=== PATIENT | female | born 2000 | race Caucasian/White ===

== ENCOUNTER 2022-07-15 08:08 | Emergency (ER) | payer OTHER, SELFPAY ==
[2022-07-15 08:25] VITALS: BP 118/63; PULSE 82; RESP 18; TEMP 37; O2SAT 99; BMI 19.7
--- NOTE | 2022-07-15 08:41 | ED_ITS ---
HPI - General Adult General Time Seen by Provider: 08:41 Date Seen: 07/15/22 Chief complaint: Psychiatric Problem/Disorder Stated complaint: Suicidal Ideation Time Seen by Provider: 07/15/22 08:14 Source: patient Mode of arrival: ambulatory Limitations: no limitations History of Present Illness HPI narrative: Patient is a 21 year white female [employer] student from [place], who reports she has had longstanding depression, worse recently with anxiety and some chronic reflux. The patient started on Paxil 2 weeks ago and felt more suicidal ideation, feelings of ?I might be better off not alive ?. No active suicidal plan, she called the nurse line to trying get an appointment at [facility] and they felt she should be seen today. She denies alcohol, drugs, Tylenol, aspirin ingestion, no illicit drugs. She has been healthy generally. Has no allergies. She is very pleasant cooperative alert oriented, and shows good insight into her situation. Related Data Home Medications Medication Instructions Recorded Confirmed budesonide 180 mcg/actuation inhalation 07/15/22 breath activated powder inhaler (Pulmicort Flexhaler) montelukast 10 mg tablet 10 mg PO DAILY 07/15/22 07/15/22 (Singulair) Allergies Allergy/AdvReac Type Severity Reaction Status Date / Time No Known Drug Allergies Allergy Verified 07/15/22 08:25 Review of Systems Status of ROS: Reports: 6 or more systems reviewed and unremarkable except as noted in History and below [facility] Social History Smoking Status: Never smoker How often do you have a drink containing alcohol: monthly or less How often do you have six or more drinks on one occasion: Never AUDIT-C Alcohol total score: 1 Non-prescribed substance use: denies use Exam Narrative: Exam Narrative: Objective: The patient is alert orient x3, no apparent distress, noncyanotic Mental status appears appropriate, patient is appropriately concerned about her generalized health and mental health Vital signs unremarkable HEENT unremarkable no facial asymmetry neck is supple heart rhythm regular without murmur neurologic nonfocal upper extremities good peripheral perfusion noted normal skin exam warm and dry Const: Vital Signs, click to edit/add: Vital Signs - 24 hr 07/15/22 08:25 Temperature 98.6 F Pulse Rate [Right Pulse Oximeter] 82 Respiratory Rate 18 Blood Pressure [Ri ght Upper Arm] 118/63 Pulse Oximetry 99 Oxygen Delivery Me thod Room Air Course Vital Signs Vital signs: Initial Vital Signs Temperature 98.6 F 07/15/22 08:25 Temperature Source Temporal Artery Scan 07/15/22 08:25 Pulse Rate 82 07/15/22 08:25 Respiratory Rate 18 07/15/22 08:25 Blood Pressure 118/63 07/15/22 08:25 Blood Pressure Mean 81 07/15/22 08:25 Blood Pressure Position Sitting 07/15/22 08:25 Pulse Oximetry 99 07/15/22 08:25 Oxygen Delivery Method 07/15/22 08:25 Vital Signs Temperature 98.6 F 07/15/22 08:25 Pulse Rate 82 07/15/22 08:25 Respiratory Rate 18 07/15/22 08:25 Blood Pressure 118/63 07/15/22 08:25 Pulse Oximetry 99 07/15/22 08:25 Oxygen Delivery Method 07/15/22 08:25 Temperature 98.6 F 07/15/22 08:25 Pulse Rate 82 07/15/22 08:25 Respiratory Rate 18 07/15/22 08:25 Blood Pressure 118/63 07/15/22 08:25 Pulse Oximetry 99 07/15/22 08:25 Oxygen Delivery Method 07/15/22 08:25 Medical Decision Making MDM Narrative Medical decision making narrative: Patient has some suicide ideation on Paxil she reports it has been worse with the Paxil, she has stopped this now. Will get a deck Telehealth assessment for reassurance, will check common laboratories to make sure there is no metabolic or other abnormality. Disposition pending dex assessment Addendum: Tele health mental assessment is occurred, they felt she is stable for discharge, and have follow-up plans for her. She was comfortable this plan. Contract for safety will be sent over. Patient return any time problems or concerns Lab Data Labs: Lab Results 07/15/22 07/15/22 07/15/22 Range/Units 08:42 08:42 08:42 WBC (4.50-11.00) K/uL RBC (4.00-5.20) m/uL Hgb (12.0-16.0) gm/dL Hct (33.0-51.0) % MCV (80-100) fL MCH (26-34) pg MCHC (32-36) gm/dL RDW Coeff of Rikki (11.5-15.5) % Plt Count (140-440) K/uL Neut % (Auto) (42.0-72.0) % Lymph % (Auto) (20-44) % [place] % (Auto) (0.0-11.0) % Eos % (Auto) (0.0-7.0) % Baso % (Auto) (0.0-3.0) % Neut # (Auto) (1.7-7.0) K/uL Lymph # (Auto) (0.90-2.90) K/uL [place] # (Auto) (0.00-0.90) K/UL Eos # (Auto) (0.00-0.50) K/uL Baso # (Auto) (0.00-0.30) K/uL Abs Immat Gran (auto) (0.00-0.30) K/uL Sodium (135-149) mmol/L Potassium (3.6-5.1) mmol/L Chloride (96-114) mmol/L Carbon Dioxide (20-32) mmol/L BUN (5-24) mg/dL Creatinine (0.5-1.5) mg/dL Estimated Creat Clear Estimated GFR ml/min Glucose (60-115) mg/dL Calcium (8.4-10.6) mg/dL HCG, Qual (Negative) Urine Color Yellow (Yellow) Urine Appearance Clear (Clear) Urine pH 6.0 (5.0-8.5) Ur Specific [place] 1.020 (1.000-1.030) Urine Protein Negative (Negative) Urine Glucose (UA) Negative (Negative) Urine Ketones Negative (Negative) Urine Blood Negative (Negative) Urine Nitrite Negative (Negative) Urine Bilirubin Negative (Negative) Urine Urobilinogen 0.2 (0.2-1.0) Ur Leukocyte Esterase Trace A (Negative) Urine RBC 0-2 (0-2) Urine WBC 0-2 (0-5) Ur Squamous Epith Cells Few (None-Few) Urine Bacteria None (None) Salicylates (1.0-10) mg/dL Urine Opiates Screen Negative (Negative) Ur Oxycodone Screen Negative (Negative) Urine Methadone Screen Negative (Negative) Ur Propoxyphene Screen Negative (Negative) Acetaminophen (10.0-30.0) ug/mL Ur Barbiturates Screen Negative (Negative) U Tricyclic Antidepress Negative (Negative) Ur Phencyclidine Scrn Negative (Negative) Ur Amphetamines Screen Negative (Negative) U Methamphetamines Scrn Negative (Negative) U Benzodiazepines Scrn Negative (Negative) Urine Cocaine Screen Negative (Negative) U Marijuana (THC) Screen Negative (Negative) Ur Drug Screen Comment See Note Ethyl Alcohol (0.01-0.03) % SARS-CoV-2 (PCR) Negative SARS-CoV-2 (Negative) 07/15/22 07/15/22 07/15/22 Range/Units 08:50 08:50 08:50 WBC 6.26 (4.50-11.00) K/uL RBC 4.81 (4.00-5.20) m/uL Hgb 14.8 (12.0-16.0) gm/dL Hct 44.6 (33.0-51.0) % MCV 93 (80-100) fL MCH 31 (26-34) pg MCHC 33 (32-36) gm/dL RDW Coeff of Rikki 11.3 L (11.5-15.5) % Plt Count 290 (140-440) K/uL Neut % (Auto) 53.2 (42.0-72.0) % Lymph % (Auto) 36.1 (20-44) % [place] % (Auto) 9.7 (0.0-11.0) % Eos % (Auto) 0.0 (0.0-7.0) % Baso % (Auto) 0.8 (0.0-3.0) % Neut # (Auto) 3.33 (1.7-7.0) K/uL Lymph # (Auto) 2.26 (0.90-2.90) K/uL [place] # (Auto) 0.60 (0.00-0.90) K/UL Eos # (Auto) 0.00 (0.00-0.50) K/uL Baso # (Auto) 0.05 (0.00-0.30) K/uL Abs Immat Gran (auto) 0.01 (0.00-0.30) K/uL Sodium 143 (135-149) mmol/L Potassium 3.7 (3.6-5.1) mmol/L Chloride 105 (96-114) mmol/L Carbon Dioxide 29 (20-32) mmol/L BUN 16 (5-24) mg/dL Creatinine 0.7 (0.5-1.5) mg/dL Estimated Creat Clear 104.69 Estimated GFR 126 ml/min Glucose 66 (60-115) mg/dL Calcium 9.5 (8.4-10.6) mg/dL HCG, Qual Negative (Negative) Urine Color (Yellow) Urine Appearance (Clear) Urine pH (5.0-8.5) Ur Specific [place] (1.000-1.030) Urine Protein (Negative) Urine Glucose (UA) (Negative) Urine Ketones (Negative) Urine Blood (Negative) Urine Nitrite (Negative) Urine Bilirubin (Negative) Urine Urobilinogen (0.2-1.0) Ur Leukocyte Esterase (Negative) Urine RBC (0-2) Urine WBC (0-5) Ur Squamous Epith Cells (None-Few) Urine Bacteria (None) Salicylates < 1.0 L (1.0-10) mg/dL Urine Opiates Screen (Negative) Ur Oxycodone Screen (Negative) Urine Methadone Screen (Negative) Ur Propoxyphene Screen (Negative) Acetaminophen < 10.0 L (10.0-30.0) ug/mL Ur Barbiturates Screen (Negative) U Tricyclic Antidepress (Negative) Ur Phencyclidine Scrn (Negative) Ur Amphetamines Screen (Negative) U Methamphetamines Scrn (Negative) U Benzodiazepines Scrn (Negative) Urine Cocaine Screen (Negative) U Marijuana (THC) Screen (Negative) Ur Drug Screen Comment Ethyl Alcohol < 0.01 L (0.01-0.03) % SARS-CoV-2 (PCR) (Negative) Discharge Plan Discharge Clinical Impression: Depression with suicidal ideation Prescriptions: No Action Pulmicort Flexhaler 180 mcg/actuation aerosol powdr breath activated INHALATION Label Comments: INHALE 2 PUFFS TWICE DAILY. RINSE MOUTH AFTERWARDS. montelukast [Singulair] 10 mg tablet 10 mg PO DAILY
[2022-07-15 08:52] LABS: Appearance Urine Clear (Clear); Bilirubin Urine Negative (Negative); Blood Urine Negative (Negative); Color Urine Yellow (Yellow); Glucose Urine Negative (Negative); Ketones Urine Negative (Negative); Leukocyte Esterase Urine Trace (Negative); Nitrite Urine Negative (Negative); Protein Urine Negative (Negative); Urobilinogen Urine 0.2 (0.2-1.0)
[2022-07-15 09:02] LABS: Amphetamine Screen Urine Negative (Negative); Barbiturate Screen Urine Negative (Negative); Benzodiazepines Screen Urine Negative (Negative); Cannabinoid Screen Urine Negative (Negative); Cocaine Screen Urine Negative (Negative); Methadone Screen Urine Negative (Negative); Methamphetamines Screen Urine Negative (Negative); Opiate Screen Urine Negative (Negative); Oxycodone Screen Urine Negative (Negative); Phencyclidine Screen Urine Negative (Negative); RBC Urine 0-2 (0-2); Squamous Epithelial Cell Urine Few (None-Few); Tricyclic Antidepressant Urine Negative (Negative); WBC Urine 0-2 (0-5)
[2022-07-15 09:12] LABS: Chloride* 105 mmol/L (96-114); Potassium* 3.7 mmol/L (3.6-5.1); Sodium* 143 mmol/L (135-149)
[2022-07-15 09:15] LABS: Blood Urea Nitrogen* 16 mg/dL (5-24); Calcium* 9.5 mg/dL (8.4-10.6); Carbon Dioxide* 29 mmol/L (20-32); Creatinine* 0.7 mg/dL (0.5-1.5); Est. Creatinine Clearance* 104.69; Estimated Glomerular Filt Rate 126 ml/min; Glucose* 66 mg/dL (60-115)
[2022-07-15 09:22] LABS: Acetaminophen* < 10.0 ug/mL (10.0-30.0); Ethanol* < 0.01 % (0.01-0.03); Salicylate* < 1.0 mg/dL (1.0-10)
[2022-07-15 09:29] LABS: HCG Qualitative Serum* Negative (Negative)
[2022-07-15 09:41] LABS: SARS PCR* Negative SARS-CoV-2 (Negative)
[2022-07-15 10:34] LABS: Basophils Absolute Auto 0.05 K/uL (0.00-0.30); Basophils Percent Auto 0.8 % (0.0-3.0); Hematocrit 44.6 % (33.0-51.0); Hemoglobin* 14.8 gm/dL (12.0-16.0); Immature Granulocytes Abs Auto 0.01 K/uL (0.00-0.30); Lymphocytes Absolute Auto 2.26 K/uL (0.90-2.90); Lymphocytes Percent Auto 36.1 % (20-44); Mean Corpuscular HGB Conc 33 gm/dL (32-36); Mean Corpuscular Hemoglobin 31 pg (26-34); Mean Corpuscular Volume 93 fL (80-100); Monocytes Percent Auto 9.7 % (0.0-11.0); Neutrophils Absolute Auto 3.33 K/uL (1.7-7.0); Neutrophils Percent Auto 53.2 % (42.0-72.0); Platelet Count* 290 K/uL (140-440); RDW Coefficient of Variation % 11.3 % (11.5-15.5); Red Blood Count 4.81 m/uL (4.00-5.20); White Blood Count* 6.26 K/uL (4.50-11.00)
[2022-07-15 10:36] LABS: Slide Review Reflex No
== END 2022-07-15 11:19 | disposition home or self-care (01) ==
PROVIDERS: Emergency Provider Family Medicine
DX: R45.851 Suicidal ideations (principal); F32.A Depression, unspecified
CPT/HCPCS: 36415; 80048; 80143; 80179; 80306; 81001; 82077; 84703; 85025; 87086; 87635; 99283; 99284

== ENCOUNTER 2022-10-05 19:37 | Emergency (ER) | payer OTHER, SELFPAY ==
[2022-10-05 19:43] VITALS: BP 116/84; PULSE 73; RESP 18; TEMP 36.7; O2SAT 98; BMI 19.7
[2022-10-05 20:00] VITALS: BP 120/81; PULSE 74; RESP 16; O2SAT 96
--- NOTE | 2022-10-05 20:08 | ED.GENADULT ---
HPI - General Adult General Time Seen by Provider: 20:00 Date Seen: 10/05/22 Chief complaint: Vaginal Bleeding Stated complaint: Heavy period bleeding, lightheaded Time Seen by Provider: 10/05/22 19:53 Source: patient and family Mode of arrival: ambulatory Limitations: no limitations History of Present Illness HPI narrative: 21-year-old female who comes in today with lethargy and vaginal bleeding. She reports that she has had heavy vaginal bleeding for the last two days. She is not having increased pain. This is timing miranda normal menstrual cycle but heavier than usual. She notes that her periods are heavier about every other month. Tonight she says she ?could not stay awake. ? She denies chest pain or breathing difficulty, does have some lightheadedness. She partner report that while eating dinner tonight she would just fall asleep and eyes would roll back. Recently increased dose of duloxetine. Related Data Home Medications Medication Instructions Recorded Confirmed budesonide 180 mcg/actuation inhalation 07/15/22 breath activated powder inhaler (Pulmicort Flexhaler) montelukast 10 mg tablet 10 mg PO DAILY 07/15/22 10/05/22 (Singulair) Lizbet-D 12 Hour DAILY 10/05/22 duloxetine 30 mg capsule,delayed 60 mg PO DAILY 10/05/22 10/05/22 release Allergies Allergy/AdvReac Type Severity Reaction Status Date / Time No Known Drug Allergies Allergy Verified 10/05/22 19:47 Review of Systems Status of ROS: Reports: 10 or more systems reviewed and unremarkable except as noted in History and below PFSH PFSH Social History Smoking Status: Never smoker How often do you have a drink containing alcohol: monthly or less How often do you have six or more drinks on one occasion: Never AUDIT-C Alcohol total score: 1 Non-prescribed substance use: denies use Exam Narrative: Exam Narrative: General: Well-developed and well-nourished, no acute distress Head: Atraumatic and normocephalic Eyes: Pupils are equal reactive, extraocular motions intact, conjunctiva clear ENT: External nose and ears are normal, posterior pharynx without erythema or exudate Neck: No midline cervical tenderness, full spontaneous range of motion the neck, trachea midline, no adenopathy Heart: Regular rate and rhythm no murmurs or thrills Lungs: Clear to auscultation bilaterally without wheezes or crackles Abdomen: Soft, nontender, nondistended with active bowel sounds Musculoskeletal: No tenderness, deformity, or edema Neurologic: Awake, alert, and oriented x3, no gross focal neurologic deficits, cranial nerves intact as tested. Occasional spells will patient will flutter her eyelids and not off her seconds, with a spontaneous with normal response to questions answered while she has her spells Psych: Mood and affect are appropriate Skin: No rashes Const: Vital Signs, click to edit/add: Vital Signs - 24 hr 10/05/22 19:43 Temperature 98.0 F Pulse Rate [Right Pulse Oximeter] 73 Respiratory Rate 18 Blood Pressure [Le ft Upper Arm] 116/84 Pulse Oximetry 98 Oxygen Delivery Me thod Room Air Course Course Hospital Course: Patient seen examined, prior records reviewed. Patient presents with heavy than usual menstrual bleeding today. She is not having abdominal pain or cramping. Labs and pelvic ultrasound are ordered. No of possibility of . Patient also reports spells of falling asleep today. In the emergency department, she will occasionally with her eyes and to her head to the right, no other loss of body posture and patient responds appropriately to questions asked during these spells. Did not appear to be syncopal episodes given duration of 1-2 seconds no loss of posture as well as patient's ability to answer questions that are asked her during these spells. Patient on telemetry, no dysrhythmia or sinus pauses noted during spells and no abdnormal movements or confusion after. Reevaluation(s) Reevaluation #1: Telemetry in the emergency department demonstrated continued sinus rhythm with no dysrhythmia. Labs include normal hemoglobin. Venous blood gas demonstrates mild hypercarbia but normal pH. No definite etiology for this as patient has no history asthma or COPD, she does have some seen all allergies. She may be retaining little bit from hypocapnia related to sedation from medications. Pelvic ultrasound is negative. Patient is stable for discharge. Will decrease duloxetine and follow-up with primary care. Precautions given with regard to not driving, not swimming, not working at heights until symptoms resolve. Time: 21:32 Vital Signs Vital signs: Initial Vital Signs Temperature 98.0 F 10/05/22 19:43 Temperature Source Temporal Artery Scan 10/05/22 19:43 Pulse Rate 73 10/05/22 19:43 Respiratory Rate 18 10/05/22 19:43 Blood Pressure 116/84 10/05/22 19:43 Blood Pressure Mean 94 10/05/22 19:43 Blood Pressure Position Semi-Fowlers 10/05/22 19:43 Pulse Oximetry 98 10/05/22 19:43 Oxygen Delivery Method 10/05/22 19:43 Vital Signs Temperature 98.0 F 10/05/22 19:43 Pulse Rate 73 10/05/22 19:43 Respiratory Rate 18 10/05/22 19:43 Blood Pressure 116/84 10/05/22 19:43 Pulse Oximetry 98 10/05/22 19:43 Oxygen Delivery Method 10/05/22 19:43 Temperature 98.0 F 10/05/22 19:43 Pulse Rate 73 10/05/22 19:43 Respiratory Rate 18 10/05/22 19:43 Blood Pressure 116/84 10/05/22 19:43 Pulse Oximetry 98 10/05/22 19:43 Oxygen Delivery Method 10/05/22 19:43 Medical Decision Making Medical Records Medical records reviewed: Yes I reviewed the patient's medical records Lab Data Lab results reviewed: Yes I reviewed the patient's lab results Labs: Lab Results 10/05/22 10/05/22 10/05/22 Range/Units 20:14 20:14 20:14 WBC 8.66 (4.50-11.00) K/uL RBC 4.55 (4.00-5.20) m/uL Hgb 14.2 (12.0-16.0) gm/dL Hct 42.0 (33.0-51.0) % MCV 92 (80-100) fL MCH 31 (26-34) pg MCHC 34 (32-36) gm/dL RDW Coeff of Rikki 11.6 (11.5-15.5) % Plt Count 294 (140-440) K/uL Neut % (Auto) 59.8 (42.0-72.0) % Lymph % (Auto) 32.1 (20-44) % [place] % (Auto) 7.4 (0.0-11.0) % Eos % (Auto) 0.0 (0.0-7.0) % Baso % (Auto) 0.6 (0.0-3.0) % Neut # (Auto) 5.18 (1.7-7.0) K/uL Lymph # (Auto) 2.78 (0.90-2.90) K/uL [place] # (Auto) 0.60 (0.00-0.90) K/UL Eos # (Auto) 0.00 (0.00-0.50) K/uL Baso # (Auto) 0.05 (0.00-0.30) K/uL Abs Immat Gran (auto) 0.01 (0.00-0.30) K/uL Imm/Tot Granulo (auto) 0.1 % VBG pH (7.32-7.43) VBG pCO2 (40-50) mmHG VBG pO2 (25-47) mmHG VBG HCO3 (21-28) mmol/L Sodium 141 (135-149) mmol/L Potassium 3.8 (3.6-5.1) mmol/L Chloride 104 (96-114) mmol/L Carbon Dioxide 25 (20-32) mmol/L BUN 16 (5-24) mg/dL Creatinine 0.6 (0.5-1.5) mg/dL Estimated Creat Clear 122.14 Estimated GFR 131 ml/min Glucose 81 (60-115) mg/dL Calcium 9.4 (8.4-10.6) mg/dL Urine Color (Yellow) Urine Appearance (Clear) Urine pH (5.0-8.5) Ur Specific [place] (1.000-1.030) Urine Protein (Negative) Urine Glucose (UA) (Negative) Urine Ketones (Negative) Urine Blood (Negative) Urine Nitrite (Negative) Urine Bilirubin (Negative) Urine Urobilinogen (0.2-1.0) Ur Leukocyte Esterase (Negative) Urine Opiates Screen (Negative) Ur Oxycodone Screen (Negative) Urine Methadone Screen (Negative) Ur Propoxyphene Screen (Negative) Ur Barbiturates Screen (Negative) U Tricyclic Antidepress (Negative) Ur Phencyclidine Scrn (Negative) Ur Amphetamines Screen (Negative) U Methamphetamines Scrn (Negative) U Benzodiazepines Scrn (Negative) Urine Cocaine Screen (Negative) U Marijuana (THC) Screen (Negative) Ur Drug Screen Comment SARS-CoV-2 (PCR) Negative SARS-CoV-2 (Negative) Influenza Type A (PCR) Negative PCR FLU A (Negative) Influenza Type B (PCR) Negative PCR FLU B (Negative) 10/05/22 10/05/22 10/05/22 Range/Units 20:14 21:00 21:00 WBC (4.50-11.00) K/uL RBC (4.00-5.20) m/uL Hgb (12.0-16.0) gm/dL Hct (33.0-51.0) % MCV (80-100) fL MCH (26-34) pg MCHC (32-36) gm/dL RDW Coeff of Rikki (11.5-15.5) % Plt Count (140-440) K/uL Neut % (Auto) (42.0-72.0) % Lymph % (Auto) (20-44) % [place] % (Auto) (0.0-11.0) % Eos % (Auto) (0.0-7.0) % Baso % (Auto) (0.0-3.0) % Neut # (Auto) (1.7-7.0) K/uL Lymph # (Auto) (0.90-2.90) K/uL [place] # (Auto) (0.00-0.90) K/UL Eos # (Auto) (0.00-0.50) K/uL Baso # (Auto) (0.00-0.30) K/uL Abs Immat Gran (auto) (0.00-0.30) K/uL Imm/Tot Granulo (auto) % VBG pH 7.335 (7.32-7.43) VBG pCO2 52 H (40-50) mmHG VBG pO2 37.9 (25-47) mmHG VBG HCO3 28 (21-28) mmol/L Sodium (135-149) mmol/L Potassium (3.6-5.1) mmol/L Chloride (96-114) mmol/L Carbon Dioxide (20-32) mmol/L BUN (5-24) mg/dL Creatinine (0.5-1.5) mg/dL Estimated Creat Clear Estimated GFR ml/min Glucose (60-115) mg/dL Calcium (8.4-10.6) mg/dL Urine Color Yellow (Yellow) Urine Appearance Clear (Clear) Urine pH 7.0 (5.0-8.5) Ur Specific [place] 1.015 (1.000-1.030) Urine Protein Negative (Negative) Urine Glucose (UA) Negative (Negative) Urine Ketones Negative (Negative) Urine Blood 2+ A (Negative) Urine Nitrite Negative (Negative) Urine Bilirubin Negative (Negative) Urine Urobilinogen 0.2 (0.2-1.0) Ur Leukocyte Esterase Negative (Negative) Urine Opiates Screen Negative (Negative) Ur Oxycodone Screen Negative (Negative) Urine Methadone Screen Negative (Negative) Ur Propoxyphene Screen Negative (Negative) Ur Barbiturates Screen Negative (Negative) U Tricyclic Antidepress Negative (Negative) Ur Phencyclidine Scrn Negative (Negative) Ur Amphetamines Screen Negative (Negative) U Methamphetamines Scrn Negative (Negative) U Benzodiazepines Scrn Negative (Negative) Urine Cocaine Screen Negative (Negative) U Marijuana (THC) Screen Negative (Negative) Ur Drug Screen Comment See Note SARS-CoV-2 (PCR) (Negative) Influenza Type A (PCR) (Negative) Influenza Type B (PCR) (Negative) ECG Data Attestation: I personally reviewed and interpreted this ECG as follows: Prior ECG tracings: not available for review Interpretation: Performed at 8:35 p.m. demonstrates normal sinus rhythm with sinus arrhythmia rate 77, no acute ST elevations or depressions, normal intervals, normal axis, QTC 407, PA 154. No prior for comparison Discharge Plan Discharge Clinical Impression: Heavy menstrual bleeding, Excessive sleepiness Patient Disposition: Home, Self-Care Condition: Stable Instructions: Menorrhagia (ED) Additional Instructions: Decrease duloxetine to prior 30mg dose. Do not drive, swim, bike, or go on ladders until your spells of sleepiness resolve. Prescriptions: No Action Pulmicort Flexhaler 180 mcg/actuation aerosol powdr breath activated INHALATION Label Comments: INHALE 2 PUFFS TWICE DAILY. RINSE MOUTH AFTERWARDS. montelukast [Singulair] 10 mg tablet 10 mg PO DAILY duloxetine 30 mg capsule,delayed release(DR/EC) 60 mg PO DAILY Label Comments: TAKE 1 CAPSULE BY MOUTH EVERY MORNING Lizbet-D 12 Hour DAILY Follow Up/Referrals: Provider,Not a Local [Primary Care Provider] - Stand Alone Forms: [employer] Info Instructions
--- NOTE | 2022-10-05 20:14 | CRLHL7_ITS ---
For Patients: As a result of the Century Cures Act, medical imaging exams and procedure reports are released immediately into your electronic medical record. You may view this report before your referring provider. If you have questions, please contact your health care provider. INDICATION: HEAVY VAGINAL BLEEDING, DECLINES TV IMAGING Indication: Heavy vaginal bleeding. Technique: Pelvic ultrasound. Transabdominal imaging of the pelvis was obtained. Patient declined endovaginal imaging. Comparison: None. Findings: Uterus measures 8.1 x 3.3 x 4.3 cm. Endometrial complex measures 4 millimeters in thickness. No endometrial or myometrial mass. Right ovary measures 3.4 x 1.5 x 2.9 cm. Left ovary measures 3.7 x 1.8 x 2.7 cm. No adnexal mass. No significant free fluid in the rectovaginal pouch of [place]. Impression: Normal transabdominal pelvic ultrasound. Dictated by Ranjeet Lowe MD @ 10/05/2022 9:23:46 PM Dictated by: Ranjeet Lowe MD @ 10/05/2022 21:23:54 (Electronically Signed)
--- OUTSIDE RECORDS SUMMARY | 2022-10-05 20:28 | XMS_ITS | Encounter Summary ---
:2000 Author Organization [facility] Address [address] [place] [address] Care Team Providers Name Role Phone Mian Goode M.D. Primary Care Provider Reason for Visit Reason Comments Medication Question Encounter Details Date Type Department Care Team Description 08/29/2022 Nurse Triage Department of Family Chen Fabian, [facility] Medicine, [facility], [address] in [place] [phone] [place] [place] [address] [address] (Work) [place] [address] Social History Tobacco Use Types Packs/Day Years Used Date Smoking Tobacco: Never Smokeless Tobacco: Never Alcohol Use Standard Drinks/Week Comments Yes 3 (1 standard drink = 0.6 oz pure alcoho l) Alcohol Habits Answer Date Recorded How often do you have a drink containing alcohol? 2-4 times a month 04/19/2022 How many drinks containing alcohol do you have on a 3 or 4 04/19/2022 typical day when you are drinking? How often do you have six or more drinks on one Never 04/19/2022 occasion? Social Isolation Answer Date Recorded In a typical week, how many times do you Once a week 04/19/2022 talk on the phone with family, friends, or neighbors? How often do you get together with friends More than three t imes a week 04/19/2022 or relatives? How often do you attend evangelical or 1 to 4 times per year 04/01 orthodox services? Do you belong to any clubs or Yes 04/19/2022 organizations such as evangelical groups, unions, fraternal or athletic groups, or school groups? How often do you attend meetings of the More than 4 times pe r year 04/19/2022 clubs or organizations you belong to? Are you now , , , Never 04/19/2022 , never or living with a partner? Physical Activity Answer Date Recorded On average, how many days per week do you engage in moderate to 7 days 04/19/2022 strenuous exercise (like walking fast, running, jogging, dancing, swimming, biking, or other activities that cause a light or heavy sweat)? On average, how many minutes do you engage in exercise at is 30 min 04/19/2022 level? Stress Answer Date Recorded Do you feel stress - tense, restless, nervous, or anxious, R ather much 04/19/2022 or unable to sleep at night because your mind is troubled all the time - these days? Financial Resource Strain Answer Date Recorded How hard is it for you to pay for the very basics like Not v corazon hard 04/19/2022 food, housing, medical care, and heating? Intimate Partner Violence Answer Date Recorded Within the last year, have you been afraid of your partner o r No 04/19/2022 ex-partner? Within the last year, have you been humiliated or emotionall y No 04/19/2022 abused in other ways by your partner or ex-partner? Within the last year, have you been kicked, hit, slapped, or No 04/19/2022 otherwise physically hurt by your partner or ex-partner? Within the last year, have you been raped or forced to have any No 04/19/2022 kind of sexual activity by your partner or ex-partner? Food Insecurity Answer Date Recorded Within the past 12 months, you worried that your food would Never true 04/19/2022 run out before you got money to buy more. Within the past 12 months, the food you bought just didn't N ever true 04/19/2022 last and you didn't have money to get more. Transportation Needs Answer Date Recorded In the past 12 months, has lack of transportation kept you f rom No 04/19/2022 medical appointments or from getting medications? In the past 12 months, has lack of transportation kept you f rom No 04/19/2022 meetings, work, or getting things needed for daily living? Housing Stability Answer Date Recorded In the last 12 months, was there a time when you were not ab le No 04/19/2022 to pay the mortgage or rent on time? In the last 12 months, how many places have you lived? 2 04/19/2022 In the last 12 months, was there a time when you did not hav e a No 04/19/[address] or slept in a detention (including now)? Education Answer Date Recorded What is the highest level of school you have Some college, n o degree 03/17/2020 completed or the highest degree you have received? Sex Assigned at Date Recorded Female 02/10/2022 1:42 PM CDT documented as of this encounter Miscellaneous Notes Telephone Encounter - Chen Fabian R.N. - 08/29/2022 10:50 AM CDT Chief Complaint / Reason for Call Patient is a 21 y.o. female calling regarding Medication Question. Assessment Concern: Lexapro approximately 4 weeks ago. Beginning about the 3rd week she developed depressive episodes that come intermittently, and last about 30 minutes. She will feel despondent. Others have told her she is irritable, and very flat affect. She has recently started back to college so does have in creased stress. She is wondering if she should take her dose today. She has reached out to the [facility] prescribing psychologist last night, but has not heard back. I did encourage her to continue taking the medication until she has spoken to her ordering physician. She will call back if symptoms worsen, or thoughts of self harm. Present for: 1 week Calling to request: Advice The recommended disposition is Call PCP When Office is Open. Reason for Disposition [1] Caller has NON-URGENT medicine question about med that PCP prescribed AND [2] triager unable toanswer question Protocols used: Medication Question [id number]-US Care Advice Patient/Caregiver understands and will follow care advice?: Yes, able to teach back ALTERNATE DISPOSITION - GUN PERFORATOR WHEN OFFICE OPEN: * Ask who prescribed the medication. * If it was a specialist (e.g., neurologist, psychiatrist), refer the call to them, not the PCP. CALL BACK IF: * You have more questions or concerns * You become worse documented in this encounter Plan of Treatment Not on filedocumented as of this encounter Visit Diagnoses Not on filedocumented in this encounter Additional Health Concerns Assessment Noted Time PHQ-9 Depression Total Score: 19 07/15/2022 7:17 AM CD T documented as of this encounter Care Teams Rug Layer Relationship Specialty Start Date End Date Mian Goode M.D. PCP - General Family Medicine 10/28/06 [address] [place] [address] documented as of this encounter
--- OUTSIDE RECORDS SUMMARY | 2022-10-05 20:28 | XMS_ITS | Encounter Summary ---
:2000 Author Organization [facility] Address [address] [place] [address] Care Team Providers Name Role Phone Mian Goode M.D. Primary Care Provider Encounter Details Date Type Department Care Team Description 09/17/2022 Orders Only RST PCP [facility] MNT Mian Goode M.D. [address] [place], [place] [phone] (Wo rk) Social History Tobacco Use Types Packs/Day Years [...] or relatives? How often do you attend mormonism or 1 to 4 times per year 04/01 mormon services? Do you belong to any clubs or Yes 04/19/2022 organizations such as mormonism groups, unions, fraternal or athletic groups, or [...] minutes do you engage in exercise at th is 30 min 04/19/2022 level? Stress Answer [...] place to sleep or slept in a retirement (including now)? Education Answer Date Recorded What is the highest level of school you have Some college, n o degree 03/17/2020 completed or the highest degree you have received? Sex Assigned at Date Recorded Female 02/10/2022 1:42 PM CDT documented as of this encounter Plan of Treatment Not on filedocumented as of this encounter Visit Diagnoses Not on filedocumented in this encounter Additional Health Concerns Assessment Noted Time PHQ-9 Depression Total Score: 19 07/15/2022 7:17 AM CD T documented as of this encounter Care Teams Hospital Technician Relationship Specialty Start Date End Date Mian Goode M.D. PCP - General Family Medicine 10/28/06 [address] [place] [address] documented as of this encounter
--- OUTSIDE RECORDS SUMMARY | 2022-10-05 20:28 | XMS_ITS | Encounter Summary ---
:[address] [facility] Address [address] [place] [address] Care Team Providers Name Role Phone Mian Goode M.D. Primary Care Provider Encounter Details Date Type Department Care Team Description 08/02/2022 Orders Only Department of Family Javier telles, Medicine, [facility] Candi Fritz [facility], [phone] [facility] [address] [place] [phone] (Work) [place] [address] [place] [address] [address] [phone] Social History Tobacco Use Types [...] or relatives? How often do you attend mosque or 1 to 4 times per year 04/01 adventism services? Do you belong to any clubs or Yes 04/19/2022 organizations such as mosque groups, unions, fraternal or athletic groups, or [...] place to sleep or slept in a residential (including now)? Education Answer Date Recorded What [...] documented as of this encounter Care Teams Edger Saw Operator Relationship Specialty Start Date End Date Mian Goode M.D. PCP - General Family Medicine 10/28/06 [address] [place] [phone] documented as of this encounter
--- OUTSIDE RECORDS SUMMARY | 2022-10-05 20:28 | XMS_ITS | Encounter Summary ---
:2000 Author Organization [facility] Address [address] [place] [address] Care Team Providers Name Role Phone Mian Goode M.D. Primary Care Provider Reason for Visit Reason Comments Immunizations Encounter Details Date Type Department Care Team Description 09/15/2022 Nurse Triage Department of [facility] Janice Jerez, [facility] Medicine, [facility] [place] [phone] (Work) [facility] [address] [place] [address] Social History Tobacco Use [...] or relatives? How often do you attend latter-day or 1 to 4 times per year 04/01 tenriism services? Do you belong to any clubs or Yes 04/19/2022 organizations such as latter-day groups, unions, fraternal or athletic groups, or [...] this encounter Miscellaneous Notes Telephone Encounter - Janice Jerez R.N. - 09/15/2022 3:05 AM CDT Chief Complaint / Reason for Call Patient is a 21 y.o. female calling regarding Immunizations. Assessment Concern: had COVID booster and influenza vaccination, now swollen lymph nodes, states she feels spastic Present for: Tonight Home cares tried: Tylenol Calling to request: advice The recommended disposition is Home Care. She will do home cares and if symptoms worsen or do not improve will call back Reason for Disposition Influenza (TIV; Injection) injected vaccine reactions Protocols used: Immunization [id number] Care Advice Patient/Caregiver understands and will follow care advice?: Yes, able to teach back REASSURANCE AND EDUCATION - NORMAL REACTIONS: * Vaccines protect us against serious diseases. * Having some temporary symptoms from the shot is normal. * The symptoms mean the vaccine is working. They mean your immune system is building antibodies against the vaccine. The antibodies will protect you against the real disease. * These brief side effects do not cause any risks to your health * There is no need to see your doctor (or CLINICAL PSYCHOLOGIST/PA) for normal reactions, such as pain, swelling, redness or fever. * Here is some care advice that should help. INFLUENZA VIRUS VACCINE (TIV; INJECTED) - COMMON REACTIONS: * Local pain at injection site * Fever * Aches * If these symptoms occur, they usually last 1 to 2 days. PAIN AND FEVER MEDICINES: * For pain or fever relief, take either acetaminophen or ibuprofen. * They are dggs-ymp-jyspeuq (OTC) drugs that help treat both fever and pain. [facility]. * Treat fevers above 101 F (38.3 C). The goal of fever therapy is to bring the fever down to a comfortable level. Remember that fever medicine usually lowers fever 2 degrees F (1 - 1 1/2 degrees C). * ACETAMINOPHEN REGULAR STRENGTH TYLENOL: Take 650 mg (two 325 mg pills) by mouth every 4-6 hours asneeded. Each Regular Strength Tylenol pill has 325 mg of acetaminophen. The most you should take each day is 3,250 mg (10 pills a day). * ACETAMINOPHEN - EXTRA STRENGTH TYLENOL: Take 1,000 mg (two 500 mg pills) every 8 hours as needed. Each Extra Strength Tylenol pill has 500 mg of acetaminophen. The most you should take each day is 3,000 mg (6 pills a day). * IBUPROFEN (E.G., MOTRIN, ADVIL): Take 400 mg (two 200 mg pills) by mouth every 6 hours. The most you should take each day is 1,200 mg (six 200 mg pills), unless your doctor has told you to take more. CALL BACK IF: * Fever lasts over 3 days * Pain lasts over 3 days * Redness or swelling lasts over 3 days * You become worse documented in this encounter Plan of Treatment Not on filedocumented as of this encounter Visit Diagnoses Not on filedocumented in this encounter Additional Health Concerns Assessment Noted Time PHQ-9 Depression Total Score: 19 07/15/2022 7:17 AM CD T documented as of this encounter Care Teams Training And Development Manager Relationship Specialty Start Date End Date Mian Goode M.D. PCP - General Family Medicine 10/28/06 [address] [place] [address] documented as of this encounter
--- OUTSIDE RECORDS SUMMARY | 2022-10-05 20:28 | XMS_ITS | Continuity of Care Document ---
:2000 Author Organization [facility] Address [address] [place] [address] Care Team Providers Name Role Phone Mian Goode M.D. Primary Care Provider Source Comments Patient records contain information from all sites at [facility]. For routine questions regarding patient records, call [phone] during business hours, M-F 8:00 AM - 5:00 PM Central Time. Record requests for emergency care only can be directed to [phone] at any time.[facility] Encounters Date Type Specialty Care Team Description Orders Only Mian Goode, 2 M.D. Nurse Triage Family Medicine Janice Jerez, Immuniz ations 2 R.N. Nurse Triage Family Medicine Chen Fabian, Medicati on Question 2 R.N. Orders Only Family Medicine Javier 2 Lam Omer M.D. Refill Family Medicine Alexis Jenkins, Med Refi ll 2 LOSS CLAIM CLERK, C.N.P., M.S.N. Nurse Triage Family Medicine Pauline Bauman, Depress ion 2 R.N. Clinical Family Medicine Mian Goode, Depressi on 2 Communication MRemy Telemedicine Family Medicine Javier Depression Anxiety 2 Varayil, (Primary Dx) Candi Fritz Refill Family Medicine Nick Brown Refill 2 Levar GeorgeAJennifer Office Visit Family Medicine Radha Moreno Pap Smear Examination (Primary Dx); 2 M, LOSS CLAIM CLERK, C.N.P. Asthma Mild Persistent (HCC) Comprehensive Gastroenterology and Thomas Luna troesophageal 2 Visit Hepatology Candi Narayanan Reflux Disease Orders Only Nicolasa Dukes, 2 M.D. Telemedicine Family Medicine Radha Carty Gastroes ophageal 2 L, Candi Reflux Disease (Primary Dx) Telemedicine Family Medicine Mian Goode, Rachel mcgregor Deficit Disorder Combined Type (Primary Dx); 2 M.D. Asthma Mild Int ermittent (HCC); Allergy Seasona l Orders Only Family Medicine Kevin, 1 Cassidy Stuart PSantiA.Jacoby Refill Family Medicine Alexis Jenkins, Med Refi ll 1 LOSS CLAIM CLERK, C.N.P., M.S.N. Orders Only Mian Goode, 1 M.D. Immunization Family Medicine 1 Patient Symptom Restrike Hammer Operator, 1 Self-Triage Provider External Outreach Family Medicine Post, Delores Alm[address]era ct With And 1 M.D. (Suspected) Exp osure To COVID-19 (Pr imary Dx) Admin Visit Family [facility] 1 Patient Symptom Restrike Hammer Operator, 1 Self-Triage Provider Refill Family Medicine Mian Goode, Med Refi ll 1 M.D. Immunization Family Medicine Encounter Fo r 1 COVID-19 Vaccin e Immunization Immunization Family Medicine Encounter Fo r 1 COVID-19 Vaccin e Immunization (Primary Dx) External Outreach Family Medicine Post, Delores Almaguera ct With And 1 M.D. (Suspected) Exp osure To COVID-19 (Pr imary Dx) Admin Visit Family Medicine 1 Patient Symptom Restrike Hammer Operator, 1 Self-Triage Provider External Outreach Family Medicine Post, Davin Narayanan Infec tion Upper 1 M.D. Respiratory (Pr imary Dx) Admin Visit Family Medicine 1 Patient Symptom Restrike Hammer Operator, 0 Self-Triage Provider Refill Family Medicine Mian Goode, Med Refi ll 0 M.D. Refill Pharmacy Mian Goode, Med Refill [address] [facility] Mian Goode, Asthma M ild Intermittent (HCC) (Primary Dx); 0 M.D. Allergy Seasona l Hospital Encounter Oral and Ross, Dev, 0 Maxillofacial Surgery M.D., D.M.D. Hospital Encounter Oral and RossJeffrey faulknerin, Impacted Tooth Third 0 Maxillofacial Surgery M.D., D.M.D. [facility] Nely Díaz, Medication Problem 0 Communication Pharm.D., R.Ph. Refill Family Medicine Mian Goode, Med Refi ll 0 M.D. Clinical Oral and Prescheduling, COVID Nurse L ine 0 Communication Maxillofacial Surgery Provider Telemedicine [facility] Medicine Mian Goode, Attentio n Deficit Disorder Combined Type (Primary Dx); 0 M.D. Asthma Mild Int ermittent (HCC) Hospital Encounter Laboratory Medicine Tian Freeman, Clinical Research 9 M.D. Exam Hospital Encounter Laboratory Medicine Harman Yan, Clinical Research 9 M.D., M.P.H. Exam Orders Only [facility]yana [facility] al Research 9 and Adolescent Exam (Primary Dx) Medicine Orders Only Count Includes [facility] Pediatric Ttayana link [facility] al Research 9 and Adolescent Exam (Primary Dx) Medicine Comprehensive Family Medicine Mian Goode, Chad Alfaro 9 Visit M.D. Juvenile Detention Officer Multisystem 29 Day To 17 Year Norm al (Primary Dx) Refill Family Medicine Mian Goode, Med Refi ll 8 M.D. Clinical Family Medicine Mian Goode, Form Rev iew 8 Communication M.D. Immunization Family Medicine Hermelinda Acuña Vacc ine 8 M, L.P.N. Immunization Influenza Abstract Provider, 8 Historical Hospital Encounter Mian Goode 7 - M.D. 7 Hospital Encounter Alicia Joseph 7 - L.P.N. 7 Hospital Encounter 7 - 7 Hospital Encounter 6 Hospital Encounter 6 Hospital Encounter 0 - 0 Hospital Encounter 0 Allergies No known active allergies Medications Medication Sig Dispensed Refills Start Date End Date Status ibuprofen Take 2 tablets 0 07/02/2013 Acti ve (ADVIL,MOTRIN) 200 mg by mouth every 6 tablet (six) hours as needed for pain. budesonide (PULMICORT) Inhale 2 puffs 2 1 each 11 01/21/2022 Active 180 mcg/actuation (two) times a inhaler day. Rinse mouth with water after use to reduce aftertaste and incidence of candidiasis. Do not swallow. fexofenadine-pseudoeph Take 1 tablet by 0 Active edrine (ALDEN-D 24) mouth as needed. 180-240 mg per 24 hr tablet fluticasone propionate Administer 1 0 Active (FLONASE) 50 spray into each mcg/actuation nasal nostril as spray needed. hydrOXYzine (VISTARIL) 25 mg daily as 0 04/17/2022 Active 25 mg capsule needed for anxiety. PARoxetine (PAXIL) 10 Take 1 tablet 30 tablet 0 07/02/2022 Active mg tablet (10 mg total) by mouth every morning. methylphenidate HCl Take 1 tablet 168 tablet 0 07/02/2022 Active (RITALIN) 10 mg tablet (10 mg total) by mouth 2 (two) times a day. montelukast TAKE 1 TABLET BY 90 tablet 3 08/02/2022 08/02/2023 Active (SINGULAIR) 10 mg MOUTH AT BEDTIME tablet DURING ALLERGY SEASON albuterol 90 INHALE 2 PUFFS 8.5 g 5 07/12/2021 A ctive mcg/actuation inhaler BY MOUTH EVERY FOUR HOURS NEEDED FOR WHEEZING OR SHORTNESS OF BREATH Active Problems Problem Noted Date Allergy Seasonal 05/22/2020 Asthma Mild Intermittent 08/16/2010 Attention Deficit Disorder Combined Type 01/14/2008 Overview: Diagnosis: ADHD F90.2 Previous interventions: medication Medication prescribed: Methylphenidate 1 0 mg twice daily. Duration of prescription: 12 weeks Amount to be dispensed: 168 tablets per prescription Tapering plan: not needed Frequency of visits: Once yearly for sharri ssessment. The [place] Prescription Monitoring Pr ogram was reviewed. Urine drug screening frequency: random a s needed Immunizations Name Administration Dates Next Due 4vHPV (discontinued) 06/09/2012, 01/03/2012, 11/29/2011 DTaP / Hib 01/20/2002 DTaP, Unspecified 10/16/2005, 04/15/2001, 02/06/2001, 2000 HepA Pediatric/Adolescent 05/17/2019, 04/18/2014 HepB Pediatric/Adolescent 07/02/2001 Hib-HepB 02/06/2001, 2000 IPV 10/16/2005, 07/02/2001, 02/06/2001, 2000 MCV4, Unspecified 01/31/2017, 11/29/2011 MMR 10/19/2003, 10/16/2001 PCV20 04/23/2022 PCV7 (discontinued) 04/15/2001, 02/06/2001, 2000 SARS-COV-2 (COVID-19) - PFIZER (12 10/24/2021, 03/27/2021, 0 03/01/2021 years or older) Tdap 04/23/2022, 12/24/2021 (Deferred: Patient decision), 11/29/2011 DESIREE 09/27/2010, 10/16/2001 influenza vaccine quad 07/27/2019, 08/20/2018, 08/22/2016, (FLUZONE/FLUARIX) (6 months and 08/17/2015, 08/19/2014 older)(PF) Family History Medical History Relation Name Comments Migraines Father's Sister Kacie Le Anxiety disorder Maternal Grandfather Doron Deng Clotting disorder Maternal Grandfather Doron Deng Colon polyps Maternal Grandfather Doron Deng Coronary artery disease Maternal Grandfather Doron Deng Depression Maternal Grandfather Doron Deng Hypertension Maternal Grandfather Doron Deng Hyperlipidemia Maternal Grandmother Rochelle Deng Hypertension Maternal Grandmother Rochelle Deng Migraines Maternal Grandmother Rochelle Deng Asthma Mother Elizabet Le Colon polyps Mother Elizabet Le Migraines Mother Elizabet Le Migraines Mother's Brother Gurwinder Deng Diabetes Paternal Grandfather Grzegorz Leesusy Hyperlipidemia Paternal Grandfather Grzegorz Le Hypertension Paternal Grandfather Grzegorz Leeser Diabetes Paternal Grandmother Tennille Leeser Hyperlipidemia Paternal Grandmother Tennille Chintanser Relation Name Status Comments Father's Sister Kacie Le Maternal Grandfather Doron Deng Maternal Grandmother Rochelle Deng Mother Elizabet Le Mother's Brother Gurwinder Deng Paternal Grandfather Grzegorz Woodsonser Paternal Grandmother Tennille Le Social History Smoking Status as of 10/05/2022 Tobacco Use Types Packs/Day Years Used Date Smoking Tobacco: Never Assessed Alcohol Habits Answer Date Recorded How often [...] or relatives? How often do you attend voodoo or 1 to 4 times per year 04/01 latter day services? Do you belong to any clubs or Yes 04/19/2022 organizations such as voodoo groups, unions, fraternal or athletic groups, or [...] place to sleep or slept in a usp (including now)? Education Answer Date Recorded What is the highest level of school you have Some college, n o degree 03/17/2020 completed or the highest degree you have received? Sex Assigned at Date Recorded Female 02/10/2022 1:42 PM CDT Last Filed Vital Signs Vital Sign Reading Time Taken Comments Blood Pressure 111/70 04/23/2022 9:55 AM CDT Pulse 83 04/23/2022 9:55 AM CDT Temperature 36.9 ??C (98.4 ??F) 05/01/2020 9:25 AM CDT Respiratory Rate 20 05/01/2020 11:05 AM CDT Oxygen Saturation 100% 05/01/2020 11:05 AM CDT Inhaled Oxygen Concentration - - Weight 48.8 kg (107 lb 9.4 oz) 04/23/2022 9:55 AM CDT Height 162 cm (5' 3.78) 04/23/2022 9:55 AM CDT Body Mass Index 18.59 04/23/2022 9:55 AM CDT Plan of Treatment Not on file Procedures Procedure Name Priority Date/Time Associated Diagnosis Comme nts THINPREP SCREEN HPV Routine 04/23/2022 10:25 Pap Smear Resu lts for this REFLEX AM CDT Examination procedure are i n the results section. SARS CORONAVIRUS 2 Routine 07/18/2021 3:55 PM Contact With And Results for this PCR DETECT, V CDT (Suspected) Exposure proced ure are in To COVID-19 the results section. SARS CORONAVIRUS-2, Routine 01/07/2021 9:12 AM Contact With An d Results for this PCR HAND CLIPPER (Suspected) Exposure procedu re are in To COVID-19 the results section. INFLUENZA A/B RNA, Routine 12/01/2020 1:53 PM Infection Upper Results for this PCR, VARIES HAND CLIPPER Respiratory procedure are i n the results section. SARS CORONAVIRUS-2, Routine 12/01/2020 1:53 PM Infection Upper Results for this PCR HAND CLIPPER Respiratory procedure are i n the results section. SARS CORONAVIRUS-2, Routine 04/29/2020 11:10 Encounter For Res ults for this PCR AM CDT Screening For Other procedur e are in Viral Diseases the results (COVID-19) section. SARS-COV-2 IGG AB, Routine 04/29/2020 10:34 Encounter For Resu lts for this SERUM AM CDT Screening For Other procedur e are in Viral Diseases the results (COVID-19) section. [facility] RESEARCH ORDER, Routine 11/17/2019 9:17 AM Clinical Resea [facility] Results for this B HAND CLIPPER Exam procedure are i n the results section. DX ANKLE 3 VIEWS Routine 06/25/2017 8:29 AM Resul ts for this CDT procedure are i n the results section. OUTSIDE PHOTO Routine 01/16/2015 12:00 Results fo r this PM HAND CLIPPER procedure are i n the results section. DX ABDOMEN 1 VIEW Routine 05/28/2007 10:41 Result s for this AM CDT procedure are i n the results section. DX CHEST AP OR PA Routine 03/01/2002 2:42 PM Resu lts for this AND LATERAL 2 VIEWS HAND CLIPPER procedur e are in the results section. DX CHEST AP OR PA Routine 07/22/2001 4:28 PM Resu lts for this AND LATERAL 2 VIEWS CDT procedur e are in the results section. US HEAD Routine 2000 9:04 AM Resul ts for this HAND CLIPPER procedure are i n the results section. US HEAD Routine 2000 12:03 Results for this PM HAND CLIPPER procedure are i n the results section. US HEAD Routine 2000 3:46 PM Resul ts for this HAND CLIPPER procedure are i n the results section. DX CHEST PORTABLE 1 Routine 2000 6:20 AM Re sults for this VIEW HAND CLIPPER procedure are i n the results section. DX CHEST AND Routine 2000 5:59 AM Re sults for this ABDOMEN PORTABLE 1 HAND CLIPPER procedure are in VIEW the results section. DX INFANT CHEST AND Routine 2000 11:02 Resu lts for this ABDOMEN PORTABLE 1 AM HAND CLIPPER procedure are in VIEW the results section. DX INFANT CHEST AND Routine 2000 6:28 AM Re sults for this ABDOMEN PORTABLE 1 HAND CLIPPER procedure are in VIEW the results section. DX INFANT CHEST AND Routine 2000 3:53 PM Re sults for this ABDOMEN PORTABLE 1 HAND CLIPPER procedure are in VIEW the results section. DX INFANT CHEST AND Routine 2000 3:24 PM Re sults for this ABDOMEN PORTABLE 1 HAND CLIPPER procedure are in VIEW the results section. Results ThinPrep Screen HPV Reflex (04/23/2022 10:25 AM CDT) Component Value Ref Test Analysis Performed Pathologis t Range Method Time At Signature 04/30/2022 DTL 3:37 PM CDT Report NYLA Clements(ASCP) 04/30/2022 DT L electronically 3:37 PM signed by CDT I verify that I have examined all relevant slides/materials for the specimen(s) and rendered or confirmed the diagnosis. Gross Description Received specimen 04/30/2022 DTL in a ThinPrep 3:37 PM vial. CDT Pap Test Source Cervical/Endocervi 04/30/2022 DTL mehreen 3:37 PM CDT Clinical History first pap 04/30/2022 DTL 3:37 PM CDT Menstrual 04/17/2022 04/30/2022 DTL Status(LMP, PM, 3:37 PM ) CDT Hormone none 04/30/2022 DTL Therapy/Contracep 3:37 PM tives CDT Interpretation Cervical/Endocervical ??(ThinPrep): 04/30/2022 DTL 3:37 PM Satisfactory for Evaluation CDT Negative for Intraepithelial Lesion or Malignancy Specimen Anatomical Collection Method Collection Time Receive d Time (Source) Location / / Volume Laterality Varies 04/23/2022 10:25 04/23/2022 1:17 (Cervix/Endocerv AM CDT PM CDT ix) Narrative This result has an attachment that is no t available. Radha Moreno APRN CSantiNSantiP. LAB PAP PATHDX ORDERABLE S Performing Organization Address City/State/ZIP Code Phon e Number [facility] - [address] [place] [phone] [facility] [place] [address] Laboratories-[address] SARS Coronavirus 2 PCR Detect, V Symptomatic (07/18/2021 3:55 PM CDT) [facility] Method Time Signature SARS-CoV-2 Swab, 07/19/2021 [facility] Specimen Nasopharynx 11:26 AM Source CDT SARS-CoV-2 Undetected Undetected 07/19/2021 [facility] RNA by PCR 11:26 AM CDT Comment: SARS-CoV-2 RNA absent. This result does not rule out COVID-19 in the patient, as the sensitivity of the test depends o n the timing of the specimen collection and the quality of the specim en. Result should be correlated with patient's history and clinical presentat ion. ----ADDITIONAL INFORMATION---- This RT-PCR test using the yuri SARS-Co V-2 assay ([employer] performed on the yuri 6800/8800 S ystem has received Emergency Use Authorization (EUA) by the U.S. Food and Drug Administration, and is modified from the ammonia technician's instructions wit h a bridging study. Performance characteristics were verified by [facility] inic in a manner consistent with CLIA requirements. Fact sheets for this Emergency Use Autho rization (EUA) assay can be found at the following links: For Healthcare Providers: https://www.TerraLUX a.gov/media/140598/download For Patients: https://www.HyperQuest.gov/media/ 784255/download Specimen Anatomical Collection Method Collection Time Receive d Time (Source) Location / / Volume Laterality Varies 07/18/2021 3:55 PM 7:29 (Nasopharynx) CDT PM CDT Davin Galo M.D. LAB MICROBIOLOGY - GENERAL O RDERABLES Performing Organization Address City/State/ZIP Code Phon e Number [facility] [address] [place], [place] [address] [facility] [place] [address] Laboratory Medicine and Pathology [address] [place] SARS Coronavirus-2, PCR Asymptomatic (01/07/2021 9:12 AM HAND CLIPPER)Only the most recent of3 resultswithin the time period is included. [facility] Method Time Signature SARS Swab, 01/07/2021 DTL Coronavirus-2 Nasopharynx 6:43 PM HAND CLIPPER Source SARS Undetected Undetected 01/07/2021 DTL Coronavirus-2 6:43 PM HAND CLIPPER , PCR Comment: SARS-CoV-2 RNA absent. This result does not rule out COVID-19 in the patient, as the sensitivity of the test depends o n the timing of the specimen collection and quality of the specimen. Result should be correlated with patient's history and clinical presentat ion. ----ADDITIONAL INFORMATION---- This test was developed and its performa nce characteristics determined by [facility] in a manner co nsistent with CLIA requirements. Independent review by the U.S. Food and Drug Administration is pending. Visit the CDC website: https://www.cdc.gov/coronavirus/ ?? for the most recent guidelines on Gage virus testing. Fact Sheet for Healthcare Providers: (https://www.Callvine/it-mmfil es/ Provider_Fact_Sheet_for_[facility]_COVI D-19.pdf) Fact Sheet for Patients: (https://www.Callvine/it-mmfil es/ Patient_Fact_Sheet_for_COVID-19.pdf) Specimen Anatomical Collection Method Collection Time Receive d Time (Source) Location / / Volume Laterality Varies 01/07/2021 9:12 AM 1 1:27 (Nasopharynx) HAND CLIPPER PM HAND CLIPPER Davin Galo M.D. LAB MICROBIOLOGY - GENERAL O AUGUST Performing Organization Address [facility] Phon e Number [facility] - [address] [address] Laboratories-[address] Influenza A/B RNA, PCR, Varies (12/01/2020 1:53 PM HAND CLIPPER) [facility] Method Time Signature Influenza Swab, 12/02/2020 DTL A/B, Source Nasopharynx 4:55 PM HAND CLIPPER Influenza A, Undetected Undetected 12/02/2020 DTL PCR 4:55 PM HAND CLIPPER Comment: Influenza A RNA absent. Influenza B, PCR Undetected Undetected 12/02/2020 4:55 PM CS T DTL Comment: Influenza B RNA absent. ----ADDITIONAL INFORMATION---- This test was developed and its performa nce characteristics determined by [facility] in a manner consistent with CLIA requirements. This test has not been cleared or approved by the U.S. Yelena d and Drug Administration. Specimen Anatomical Collection Method Collection Time Receive d Time (Source) Location / / Volume Laterality Varies 12/01/2020 1:53 PM 1 5:17 (Nasopharynx) HAND CLIPPER PM HAND CLIPPER Davin Galo M.D. LAB MICROBIOLOGY - GENERAL O AUGUST Performing Organization Address City/[facility] Phon e Number [facility] - [address] [place], [place] [address] [place] [address] Laboratories-[facility] [address] OMS Panorex (05/01/2020 9:27 AM CDT) Specimen (Source) Anatomical Location Collection Method / Collectio n Time Received Time / Laterality Volume Narrative This result has an attachment that is no t available. Dev Ross M.D., D.M.D. PROCEDURE/MINOR SURGICAL ORD ERABLES SARS Coronavirus 2 IgG Ab, Serum (04/29/2020 10:34 AM CDT) athologist Signature SARS-CoV-2 IgG Negative Negative 04/30/2020 [facility] Ab 12:05 PM CDT Comment: No IgG antibodies to SARS-CoV-2 detected . ?? Negative results may occur in serum larisa ected too soon following infection, or in immunosuppres sed patients. ?? Follow-up testing with a molecular test is recommended in symptomatic patients. ??This test vinny uld not be used to exclude active/recent COVID-19. ?? Testing was performed using the [employer] Iwco-DNUX-PxY-2 KEENAN (IgG), which has received Emergency Use Authori zation (EUA) by the U.S. Food and Drug Administration . ?? Fact sheets for this EUA assay can be fo und at the following links: ?? Factsheet for healthcare Providers: ?? https://www.fda.gov/media/919719/downloa d Factsheet for healthcare Patients: ?? https://www.fda.gov/media/751943/downloa d Specimen Anatomical Collection Method Collection Time Receive d Time (Source) Location / / Volume Laterality Blood (Blood, 04/29/2020 10:34 04/29/2020 3:27 Venous) AM CDT PM CDT Dev Ross M.D., D.M.D. LAB MICROBIOLOGY - BLOOD ORD ERABLES Performing Organization Address City/State/ZIP Code Phon e Number [facility] [address] [place] [address] [facility] [place] [address] Laboratory Medicine and Pathology [address] [place] Miscellaneous Research, B (11/17/2019 9:17 AM HAND CLIPPER) athologist Signature Number of 1 11/17/2019 [facility] Specimens 9:37 AM HAND CLIPPER Specimen Anatomical Collection Method Collection Time Receive d Time (Source) Location / / Volume Laterality Varies (Blood, 11/17/2019 9:17 AM 019 9:37 Venous) HAND CLIPPER AM HAND CLIPPER Tian Freeman M.D. LAB RESEARCH NO RESULT ROUTI NG Performing Organization Address City/State/ZIP Code Phon e Number [facility] - [address] [place], [place] [address] [facility] [place] [address] Laboratories-[facility] [address] DX Ankle 3 Views (06/25/2017 8:29 AM CDT) Anatomical Region Laterality Modality Ankle N/A Radiographic Imaging Specimen (Source) Anatomical Collection Method Collection Time Re ceived Time Location / / Volume Laterality 06/25/2017 8:29 AM CDT Impressions 06/25/2017 9:17 AM CDT No fracture or malalignment of bilateral ankles. Soft tissues are radiographically normal. Normal ankle mortise alignment. ?? Electronically signed by: ?? Tulio Ha MD [phone] 25-Jun-2017 09:17 ?Eun Buck MD. [id number] 25-Jun-2017 09:17 Narrative 06/25/2017 9:17 AM CDT 25-Jun-2017 08:29:00 ??Exam: B Ankle 3vw/STDG AP/Lat/Mortis Indications: Pain Ankle NOS ORIGINAL REPORT - 25-Jun-2017 09:17:00 EXAM: ??Ankle 3vw/STDG AP/Lat/Mortise AMBER TH Procedure Note Eun Buck M.D. - 02/25/2018Form atting of this note might be different from the original. 25-Jun-2017 08:29:00 Exam: B Ankle 3vw/S TDG AP/Lat/Mortis Indications: Pain Ankle NOS ORIGINAL REPORT - 25-Jun-2017 09:17:00 EXAM: Ankle 3vw/STDG AP/Lat/Mortise BOTH IMPRESSION: No fracture or malalignment of bilateral ankles. Soft tissues are radiographically normal. Normal ankle mortise alignment. Electronically signed by: Tulio Ha MD [phone] 25-Jun-2017 09:17 Eun Buck MD. [id number] 25-Jun-2017 09:17 Mian Goode M.D. IMG DIAGNOSTIC IMAGING PROCE DURES Head Panaromic-Outside Photo (01/16/2015 12:00 PM HAND CLIPPER) Specimen (Source) Anatomical Location Collection Method / Collectio n Time Received Time / Laterality Volume Narrative [facility] - 07/29/2019 9:23 AM CDT This order has been created and auto-finalized to support the import of outside images. If available, original i nterpretation can be found on the Media Tab in Chart Review, in Document V iewer, or as an image in QREADS. If a re-interpretation or overread is re quired please follow defined workflow. ?? Provider Not In System IMG NON RAD IMAGING PROCEDUR ES Performing Organization Address City/State/ZIP Code Phon e Number [facility] NA DX Abdomen 1 View (05/28/2007 10:41 AM CDT) Anatomical Region Laterality Modality Abdomen N/A Radiographic Imaging Specimen (Source) Anatomical Collection Method Collection Time Re ceived Time Location / / Volume Laterality 05/28/2007 10:41 AM CDT Narrative 05/28/2007 10:51 AM CDT 28-May-2007 10:41:00 ??Exam: Abdomen Indications: ABD Pain ORIGINAL REPORT - 28-May-2007 10:51:00 Minimal amounts of stool are seen throug hout the colon. Abdomen is normal. Electronically signed by: ?? Amador Jara ??[phone] 28-May-2007 10:51 Procedure Note Lonny Jara M.D. - 03/03/2018Format ting of this note might be different from the original. 28-May-2007 10:41:00 Exam: Abdomen Indications: ABD Pain ORIGINAL REPORT - 28-May-2007 10:51:00 Minimal amounts of stool are seen throug hout the colon. Abdomen is normal. Electronically signed by: Amador Jara [phone] 28-May-2007 10:51 Mian Goode M.D. IMG DIAGNOSTIC IMAGING PROCE DURES DX Chest AP or PA and Lateral 2 Views (03/01/2002 2:42 PM HAND CLIPPER)Only the most recent of2 resultswithin the time period is included. Anatomical Region Laterality Modality Chest N/A Radiographic Imaging Specimen (Source) Anatomical Collection Method Collection Time Re ceived Time Location / / Volume Laterality 03/01/2002 2:42 PM HAND CLIPPER Narrative 03/01/2002 3:34 PM HAND CLIPPER 01-Mar-2002 14:42:00 ??Exam: Chest-- 2 Views Indications: cough; screen c/w previous ORIGINAL REPORT - 01-Mar-2002 15:34:00 Minimal peribronchial thickening without an acute lobar infiltrate. Heart size and pulmonary vascularity are normal. Electronically signed by: ?? Nelly Richard M.D. ??[id number] 2 15:34 Procedure Note Nelly Richard M.D. - 03/06/2018Formatti ng of this note might be different from the original. 01-Mar-2002 14:42:00 Exam: Chest-- 2 Vie ws Indications: cough; screen c/w previous ORIGINAL REPORT - 01-Mar-2002 15:34:00 Minimal peribronchial thickening without an acute lobar infiltrate. Heart size and pulmonary vascularity are normal. Electronically signed by: Nelly Richard M.D. [id number] 01-Mar-2002 15:34 Erika Qureshi M.D. IMG DIAGNOSTIC IMAGING PROCE [facility] US Head (2000 9:04 AM RUST)Only the most recent of3 resultswithin the time period is included. Anatomical Region Laterality Modality Head N/A Ultrasound Specimen (Source) Anatomical Collection Method Collection Time Re ceived Time Location / / Volume Laterality 2000 9:04 AM HAND CLIPPER Narrative 2000 1:46 PM RUST 2000 09:04:00 ??Exam: US Cranial Pediatrics Indications: *portable* ??follow up^[id number] ORIGINAL REPORT - 2000 13:46:00 Sonogram of the head in coronal and sagi ttal projections. The intracranial contents are normal and without a structural abnormality or intraventricular hemorrhage. Normal CSF volume within the ventricul ar system with minimal increase in extra -axial fluid. Ind: 510.705 ?? Dia.120 ?? Electronically signed by: ?? Nelly Richard M.D. ??[id number] 0 13:46 Procedure Note Nelly Richard M.D. - 03/09/2018Formatti ng of this note might be different from the original. 2000 09:04:00 Exam: US Cranial Pe diatrics Indications: *portable* follow up^[id number] ORIGINAL REPORT - 2000 13:46:00 Sonogram of the head in coronal and sagi ttal projections. The intracranial contents are normal and without a structural abnormality or intraventricular hemorrhage. Normal CSF volume within the ventricular system with minimal increase in extra-ax ial fluid. Ind: 510.705 Dia.120 Electronically signed by: Nelly Richard M.D. [id number] 2000 13:46 Ranjeet Sutherland M.D. IMG US PROCEDURES DX Chest Portable 1 View (2000 6:20 AM HAND CLIPPER) Anatomical Region Laterality Modality Chest N/A Radiographic Imaging Specimen (Source) Anatomical Collection Method Collection Time Re ceived Time Location / / Volume Laterality 2000 6:20 AM HAND CLIPPER Narrative 2000 10:36 AM HAND CLIPPER 2000 06:20:00 ??Exam: Portable-Chest Indications: AM PORT F/U INFILTRATES ORIGINAL REPORT - 2000 06:43:00 Since yesterday, a second enteric tube h as been placed with tip in the proximal stomach below the GE junction. ??Previously demonstrated slightly coarsened opacities in the right lower lung have improve d. ??Otherwise no change. ??Enteric tube tip in the midstomach. ??UVC tip projected over T10, just above the right hemidiaphragm. ??Stable minimal granular changes throughout both lungs. ??Normal heart size. ??No pleural effusions. ??Normal b owel gas pattern. Electronically signed by: ?? Dolores [id number] ([id number]) 0 06:43 I have reviewed the films/images and agr ee with the above interpretation. Electronically signed by: ?? Nelly Richard M.D. ??[id number] 0 10:36 Procedure Note Nelly Richard M.D. - 03/09/2018Formatti ng of this note might be different from the original. 2000 06:20:00 Exam: Portable-Ches t Indications: AM PORT F/U INFILTRATES ORIGINAL REPORT - 2000 06:43:00 Since yesterday, a second enteric tube h as been placed with tip in the proximal stomach below the GE junction. Previously demonstrated slightly coarsened opacities in the right lower lung have improved. Otherwise no change. Enteric tube tip in the midstoma ch. UVC tip projected over T10, just above the right hemidiaphragm. Stable minimal granular changes throughout both lungs. Normal heart size. No pleural effusions. Normal bowel gas pattern. Electronically signed by: Dolores [id number] ([id number]) 0 06:43 I have reviewed the films/images and agr ee with the above interpretation. Electronically signed by: Nelly Richard M.D. [id number] 2000 10:36 Historical Provider IMG DIAGNOSTIC IMAGING PROCE DURES DX Infant Chest and Abdomen Portable 1 View (2000 5:59 AM HAND CLIPPER)Only the most recent of5 resultswithin the time period is included. Anatomical Region Laterality Modality Chest, Abdomen N/A Radiographic Imaging Specimen (Source) Anatomical Collection Method Collection Time Re ceived Time Location / / Volume Laterality 2000 5:59 AM HAND CLIPPER Narrative 2000 11:21 AM HAND CLIPPER 2000 05:59:00 ??Exam: Peds - Chest Abdomen Indications: check line placement REVISED REPORT - 2000 11:21:00 Revised 2000 11:19:16 Since yesterday's film, OG tube has been placed. UVC tip just above the right hemidiaphragm, as before. There are some slightly coarsened densities in the right lower lung, which are new since yesterday . Minimal granular changes remain in the other portions of the lungs. Heart size within normal limits. Bowel gas pattern normal. Electronically signed by: ?? Amador Jara ??[id number] 2000 11:21 Procedure Note Lonny Jara M.D. - 03/09/2018Format ting of this note might be different from the original. 2000 05:59:00 Exam: Peds - Chest Abdomen Indications: check line placement REVISED REPORT - 2000 11:21:00 Revised 2000 11:19:16 Since yesterday's film, OG tube has been placed. UVC tip just above the right hemidiaphragm, as before. There are some slightly coarsened densities in the right lower lung, which are new since yesterday. Minimal granular changes remain in the other por tions of the lungs. Heart size within normal limits. Bowel gas pattern normal. Electronically signed by: Amador Jara [phone] 11:21 Alvarez Yao M.D. IMG DIAGNOSTIC IMAGING [facility] Visit Diagnoses Diagnosis Start Date Need Vaccine Immunization Influenza 08/20/2018 Examination Well Juvenile Detention Officer Multisystem 29 Day To 17 Y ear Normal 05/17/2019 Clinical Research Exam 05/19/2019 Clinical Research Exam 05/19/2019 Clinical Research Exam 06/08/2019 Clinical Research Exam 11/17/2019 Attention Deficit Disorder Combined Type 03/17/2020 Asthma Mild Intermittent (HCC) 03/17/2020 Impacted Tooth Third Molar 05/01/2020 Asthma Mild Intermittent (HCC) 05/22/2020 Allergy Seasonal 05/22/2020 Infection Upper Respiratory 12/01/2020 Contact With And (Suspected) Exposure To COVID-19 2020 Encounter For COVID-19 Vaccine Immunization 03/01/2021 Encounter For COVID-19 Vaccine Immunization 03/27/2021 Contact With And (Suspected) Exposure To COVID-19 07/18 Attention Deficit Disorder Combined Type 12/24/2021 Asthma Mild Intermittent (HCC) 12/24/2021 Allergy Seasonal 12/24/2021 Gastroesophageal Reflux Disease 02/14/2022 Gastroesophageal Reflux Disease 03/14/2022 Pap Smear Examination 04/23/2022 Asthma Mild Persistent (HCC) 04/23/2022 Depression Anxiety 07/02/2022 Care Teams Special Education Professional Relationship Specialty Start Date End Date Mian Goode M.D. PCP - General Family Medicine 10/28/[birth year] [address] [place] [address]
--- OUTSIDE RECORDS SUMMARY | 2022-10-05 20:29 | XMS_ITS | Encounter Summary ---
:2000 Author Organization [facility] Address [address] [place] [address] Care Team Providers Name Role Phone Mian Goode M.D. Primary Care Provider Reason for Visit Reason Comments Depression Encounter Details Date Type Department Care Team Description 07/02/2022 Clinical Communication Department of Warner Zambrano, Depression Medicine, [facility], [facility] in [address] [phone] [place], [place] [address]Y [address] (Work) [place], [place] [phone] (Fax) [phone] Social History Tobacco Use Types Packs/Day Years [...] or relatives? How often do you attend mormon or 1 to 4 times per year 04/01 anglican services? Do you belong to any clubs or Yes 04/19/2022 organizations such as mormon groups, unions, fraternal or athletic groups, or [...] place to sleep or slept in a care home (including now)? Education Answer Date Recorded What is the highest level of school you have Some college, n o degree 03/17/2020 completed or the highest degree you have received? Sex Assigned at Date Recorded Female 02/10/2022 1:42 PM CDT documented as of this encounter Miscellaneous Notes Telephone Encounter - Cassidy Sarabia - 07/02/2022 7:10 AM CDT Same day appt. Patient submitted a PHQ9 with a positive question #9. The patient does have an appointment today, therefore the PHQ9 could not be attached to this message. This message is being sent incase the patientdoes not attend that appointment. Thank you documented in this encounter Plan of Treatment Not on filedocumented as of this encounter Visit Diagnoses Not on filedocumented in this encounter Additional Health Concerns Assessment Noted Time PHQ-9 Depression Total Score: 14 07/01/2022 7:14 PM CD T documented as of this encounter Care Teams Freezer Machine Operator Relationship Specialty Start Date End Date Mian Goode M.D. PCP - General Family Medicine 10/28/[birth year] [address] [place] [address] documented as of this encounter
--- OUTSIDE RECORDS SUMMARY | 2022-10-05 20:29 | XMS_ITS | Encounter Summary ---
:2000 Author Organization [facility] Address [address] [place] [address] Care Team Providers Name Role Phone Mian Goode M.D. Primary Care Provider Reason for Visit Reason Comments Med Refill Encounter Details Date Type Department Care Team Description 11/20/2021 Refill Department of Family Medicine, Sven Jenkins APRN, Med Refill [facility] M.S.N. [address] Professional [address] [place] [address] [place] [address] [place] [facility] [address] [place] [address] Social History Tobacco Use Types Packs/Day Years Used Date Smoking Tobacco: Never Smokeless Tobacco: Never Alcohol Use Standard Drinks/Week Comments Never 0 (1 standard drink = 0.6 oz pure [...] or relatives? How often do you attend scientology or 1 to 4 times per year 04/01 faith services? Do you belong to any clubs or Yes 04/19/2022 organizations such as scientology groups, unions, fraternal or athletic groups, or [...] this encounter Miscellaneous Notes Telephone Encounter - Neda Gomez R.N. - 11/21/2021 3:44 PM CST Information Discussed Patient was informed that Cassidy Brown PA-C, sent her prescription for Ritalin to the pharmacy. She is due for a visit with Dr. Goode to discuss her CSA and ADHD follow-up. The patient verbalizedunderstanding and said she does not know her schedule for December, so she will need to call back or portal to schedule an appointment. RN advised the patient to try and schedule an appointment before her next refill is due. The patient verbalized understanding. PLAN Disposition/Recommendation: patient to schedule appointment and will call Information/Education: patient/caller able to teach back Caller agreeable to plan of care: yes The following references were used: provider Cassidy Brown PA-C P DIRECTOR Telephone Encounter - Erika Grant R.N., [facility] - 11/21/2021 3:34 PM GROUP DIRECTOR Phone call attempt to patient. Unable to reach family/patient at Cell. Message left to call: [facility] ([phone]) Day Trader needed to assist with call: no Reason for phone call: TRC-give information per Francesca Goodman P DIRECTOR Telephone Encounter - Carrie Duarte L.P.N. - 11/21/2021 2:34 PM GROUP DIRECTOR The patient is requesting a renewal of methylphenidate HCI (Ritalin), per Mian Goode M.D., as outlined in their Problem List Overview for Attention Deficit Disorder Combined Type. The renewal is not pended due to the following nursing concerns: Last visit with PCP: 05/22/2020 (prescribing plan states visit should be yearly). Date last Rx issued/able to be filled on: 07/10/2021 Urine Drug Screening: as needed Screening/Assessments due: No screenings due for patient at this time. Next Provider Visit due: Now last visit with PCP: 05/22/2020 [facility] Rx Renewal in basket pool for any questions & wrap up. P DIRECTOR Telephone Encounter - Miya Sutherland - 11/21/2021 1:58 PM CST Nurse review: Unable to forward request to provider; Controllled Substance, CSA Primary Provider: Mian Goode M.D. Requested Prescriptions Pending Prescriptions Disp Refills ??? methylphenidate HCl (RITALIN) 10 mg tablet [Pharmacy Med Name: METHYLPHENIDATE HCL 10MG TABS] 168 tablet 0 Sig: TAKE 1 TABLET BY MOUTH TWO TIMES A DAY Pharmacy: [facility] - [facility] [address]?[phone] P DIRECTOR documented in this encounter Plan of Treatment Not on filedocumented as of this encounter Visit Diagnoses Not on filedocumented in this encounter Additional Health Concerns Assessment Noted Time PHQ-9 Depression Total Score: 2 05/22/2020 7:40 AM CDT documented as of this encounter Care Teams Corrosion Control Engineer Relationship Specialty Start Date End Date Mian Goode M.D. PCP - General Family Medicine 10/28/[address] [place] [address] documented as of this encounter
--- OUTSIDE RECORDS SUMMARY | 2022-10-05 20:29 | XMS_ITS | Encounter Summary ---
:2000 Author Organization [facility] Address [address] [place] [address] Care Team Providers Name Role Phone Mian Goode M.D. Primary Care Provider Reason for Referral Outpatient (Routine) - Closed Specialty Diagnoses / Procedures Referred By Contact Refer red To Contact Diagnoses Impacted Tooth Third Molar Dev Ross M.D., Usman.MMarquita. [facility] Procedures OMS [facility] [address] [place] [phone] Referral ID Status Reason Start Date Expiration Date Visits Requ ested Visits Authorized [id number] Closed 05/01/2020 05/01/2021 1 1 Encounter Details Date Type Department Care Team Description 05/01/2020 Hospital Encounter Division of Oral and Dev Ross I mpahilda Tooth Third Maxillofacial Surgery Candi, Madeleine Gonzalez Molar in [address] [place] [address] [place], [place] [phone] (Work) [phone] Social History Tobacco Use Types Packs/Day Years [...] or relatives? How often do you attend lutheran or 1 to 4 times per year 04/01 christian services? Do you belong to any clubs or Yes 04/19/2022 organizations such as lutheran groups, unions, fraternal or athletic groups, or [...] place to sleep or slept in a skilled nursing (including now)? Education Answer Date Recorded What is the highest level of school you have Some college, n o degree 03/17/2020 completed or the highest degree you have received? Sex Assigned at Date Recorded Female 02/10/2022 1:42 PM CDT documented as of this encounter Last Filed Vital Signs Vital Sign Reading Time Taken Comments Blood Pressure 115/72 05/01/2020 11:00 AM CDT Pulse 65 05/01/2020 11:05 AM CDT Temperature 36.9 ??C (98.4 ??F) 05/01/2020 9:25 AM CDT Respiratory Rate 20 05/01/2020 11:05 AM CDT Oxygen Saturation 100% 05/01/2020 11:05 AM CDT Inhaled Oxygen Concentration - - Weight 56.1 kg (123 lb 10.9 oz) 05/01/2020 9:25 AM CDT Height 164.6 cm (5' 4.8) 05/01/2020 9:25 AM CDT Body Mass Index 20.71 05/01/2020 9:25 AM CDT documented in this encounter Medications at Time of Discharge Medication Sig Dispensed Refills Start Date End Date ibuprofen (ADVIL,MOTRIN) Take 2 tablets by 0 /01/2013 200 mg tablet mouth every 6 (six) hours as needed for pain. cetirizine (ZyrTEC) 10 mg Take 10 mg by mouth 0 02/14/2022 tablet daily as needed. methylphenidate HCl Take 1 tablet (20 84 tablet 0 0 07/11/2020 (METADATE ER) 20 mg ER mg total) by mouth tablet every morning. methylphenidate HCl Take 1 tablet (10 84 tablet 0 0 07/11/2020 (RITALIN) 10 mg tablet mg total) by mouth daily. Take in the afternoon. Ventolin HFA inhaler Inhale 2 puffs 18 g 5 03/17/2020 07/10/2021 every 4 (four) hours as needed for wheezing or shortness of breath. documented as of this encounter Consult Notes Anselmo Krause M.D., D.D.S. - 05/01/2020 8:57 AM CDT SUBJECTIVE Carrie Le is a 19 y.o. female who presents to cleaning team member for removal of teeth 1, 16, 17, 32. OBJECTIVE Previous Medical History Past Medical History: Diagnosis Date ??? Anxiety Generalized Disorder ??? Asthma NOS ??? Eczema ??? Headache Previous Surgical History No past surgical history on file. Social History Social History Socioeconomic History ??? Marital status: Single Spouse name: Not on file ??? Number of children: Not on file ??? Years of education: Not on file ??? Highest education level: Some college, no degree Occupational History ??? Not on file Social Needs ??? Financial resource strain: Not hard at all ??? Food insecurity Worry: Never true Inability: Never true ??? Transportation needs Medical: No Non-medical: No Tobacco Use ??? Smoking status: Never Smoker ??? Smokeless tobacco: Never Used Substance and Sexual Activity ??? Alcohol use: Never Frequency: 2-4 times a month Drinks per session: 3 or 4 Binge frequency: Never ??? Drug use: Never ??? Sexual activity: Never Lifestyle ??? Physical activity Days per week: 3 days Minutes per session: 60 min ??? Stress: To some extent Relationships ??? Social connections Talks on phone: More than three times a week Gets together: Twice a week Attends christian service: More than 4 times per year Active member of club or organization: Yes Attends meetings of clubs or organizations: More than 4 times per year Relationship status: Never ??? Intimate partner violence Fear of current or ex partner: No Emotionally abused: No Physically abused: No Forced sexual activity: No Other Topics Concern ??? Not on file Social History Narrative ??? Not on file Current Outpatient Medications Medications No active medications Allergies No Known Allergies Physical Exam: Extraoral Head and Neck Exam: No masses, cervical lymphadenopathy nor other significant abnormality,TMJ functional without obvious abnormality; appropriate ROM of the mandible Intraoral Soft Tissue Exam: No soft tissue pathology and Good oral hygiene Dental and Osseous Structures Exam: Confirms the need to remove the teeth listed above Imaging: Appropriate studies were reviewed including: Panorex IMPRESSION/REPORT/PLAN Based on an appropriate review of this patient's referral, clinical history and examination, as wellas review of appropriate imaging, treatment will be provided today, specifically removal of teeth 1,16, 17, 32 under intravenous sedation. We discussed with the patient and/or their parent/caregiver/health care POA: the risks, benefits, alternatives, anesthesia, possibility of additional procedures, health care team approach, potential for overlapping incisions/procedures, possible use of photography/video, potential for and consent to transfusion, placement of implants, exposure of patient/surgical team. All questions were answered andconsent given to proceed. ADVOCATE Dev Ross M.D., Usman.MMarquita. - 05/01/2020 8:57 AM CDT Impression/Report/Plan I have reviewed the pertinent referral information, clinical history, physical examination and imaging findings with Dr. Krause. I agree with his evaluation and plan of care as documented. Final Diagnosis(es): 1. Impacted 3rd Molars ADVOCATE documented in this encounter OR Notes Op Note - Anselmo Krause M.D., D.D.S. - 05/01/2020 9:30 AM CDT PROCEDURE(S) Extraction of teeth 1, 16, 17, and 32. SURGEON(S) Dr. Dev Ross. CONFIGURATION MANAGEMENT ANALYST: Dr. Stivne Krause. ANESTHESIA TYPE Deep sedation with local anesthesia. DURATION OF ANESTHESIA: Two 15-minute increments. PRE-OPERATIVE DIAGNOSIS Impacted teeth 1, 16, 17, 32. POST-OPERATIVE DIAGNOSIS Impacted teeth 1, 16, 17, 32. INDICATION: Prevent future complications. DESCRIPTION OF PROCEDURE The patient was prepared in the usual manner for surgery including appropriate monitors. IV access was obtained, IV fluid infusion initiated, and supplemental oxygen administered. A pre-procedural pause was performed to confirm patient identity and planned procedure(s). After sufficient IV and local infiltration anesthesia were obtained, a secondary intra-procedural pause was performed prior to each individual procedure. Partial-bony impacted teeth numbers 1, 16, 17, 32 were removed by elevator technique through an open flap following removal of bone and sectioning of teeth, if necessary, using hand and/or rotary instruments. Routine suturing was utilized as necessary. Patient tolerated the surgery and anesthesia without complication and was taken to the recovery room in stable condition. SPECIMENS No specimens. ESTIMATED BLOOD LOSS Minimal. TPR: 1 Anselmo Krause M.D., D.D.S. CT CT Job ID: [id number] documented in this encounter Plan of Treatment Scheduled Orders Name Type Priority Associated Diagnoses Order S chedule OMS Extraction IV Procedures Routine Impacted Tooth Third On ce for 1 Occurrences Molar starting 2019 until 0 documented as of this encounter Results OMS Panorex (05/01/2020 9:27 AM CDT) Specimen (Source) Anatomical Location Collection Method / Collectio n Time Received Time / Laterality Volume Narrative This result has an attachment that is no t available. Dev Ross M.D., Juan PROCEDURE/MINOR SURGICAL ORD ERABLES documented in this encounter Visit Diagnoses Diagnosis Impacted Tooth Third Molar documented in this encounter Administered Medications Inactive Administered Medications - up to 3 most recent administrations Medication Order MAR Action Action Date Dose Rate Site dexamethasone injection (DECADRON) Given 05/01/2020 10:21 AM CDT 10 mg Code/trauma/sedation medication, Starting on 05/01/20 at 1021 fentaNYL injection (SUBLIMAZE) Given 05/01/2020 10:21 AM 100 mcg Code/trauma/sedation medication, Starting on CDT Fri05/01/20 at 1021 lactated Ringer's bolus New Bag 05/01/2020 9:26 AM CDT 1,000 mL 50 mL/hr Administer over 1 Hours, Code/trauma/sedation continuous med, Starting on Fri05/01/20 at 0926 midazolam (PF) injection (VERSED) Given 05/01/2020 10:21 AM CDT 5 mg Code/trauma/sedation medication, Starting on Fri05/01/20 at 1021 propofoL injection (DIPRIVAN) Given 05/01/2020 10:21 AM CDT 180 mg Code/trauma/sedation medication, Starting on Fri05/01/20 at 1021 documented in this encounter Additional Health Concerns Assessment Noted Time PHQ-9 Depression Total Score: 9 01/31/2017 12:01 AM CS T documented as of this encounter Care Teams Machine Feeder Raw Stock Relationship Specialty Start Date End Date Mian Goode M.D. PCP - General Family Medicine 10/28/[address] [place] [address] documented as of this encounter
--- OUTSIDE RECORDS SUMMARY | 2022-10-05 20:29 | XMS_ITS | Encounter Summary ---
:2000 Author Organization [facility] Address [address] [place] [address] Care Team Providers Name Role Phone Mian Goode M.D. Primary Care Provider Encounter Details Date Type Department Care Team Description 07/18/2021 Patient Self-Triage CONNECTED CARE Symptom Ct Mri Technologist, Provider Social History Tobacco Use Types Packs/Day Years [...] or relatives? How often do you attend methodist or 1 to 4 times per year 04/01 restorationist services? Do you belong to any clubs or Yes 04/19/2022 organizations such as methodist groups, unions, fraternal or athletic groups, or [...] filedocumented in this encounter Additional Health Concerns Infection Onset Date Last Indicated Resolved Time COVID19 Pending 07/18/2021 07/18/2021 07/19/2021 11:26 AM CDT Assessment Noted Time PHQ-9 Depression Total Score: 2 05/22/2020 7:40 AM CDT documented as of this encounter Care Teams [employer] Member Relationship Specialty Start Date End Date Mian Goode M.D. PCP - General Family Medicine 10/28/06 [address] [place] [address] documented as of this encounter
--- OUTSIDE RECORDS SUMMARY | 2022-10-05 20:29 | XMS_ITS | Encounter Summary ---
:2000 Author Organization [facility] Address [address] [place] [address] Care Team Providers Name Role Phone Mian Goode M.D. Primary Care Provider Reason for Visit Outpatient (Routine) - Closed Specialty Diagnoses / Referred By Referred To Cont act Procedures Contact Gastroenterology and Diagnoses Gastroesophageal Reflux Disease Radha Carty [facility] Hepatology Candi Stuart [address] [place] [address] Referral ID Status Reason Start Date Expiration Date Visits Requ ested Visits Authorized [id number] Closed 02/28/2022 02/28/2023 1 1 Encounter Details Date Type Department Care Team Description 03/14/2022 Comprehensive Visit Division of [facility] Gastroenterology in [place], [place] Candi [address] [facility] [address] [facility] [address] [facility] [phone] [place] [id number] Social History Tobacco Use Types Packs/Day Years [...] or relatives? How often do you attend yazdanism or 1 to 4 times per year 04/01 faith services? Do you belong to any clubs or Yes 04/19/2022 organizations such as yazdanism groups, unions, fraternal or athletic groups, or [...] place to sleep or slept in a correction (including now)? Education Answer Date Recorded What is the highest level of school you have Some college, n o degree 03/17/2020 completed or the highest degree you have received? Sex Assigned at Date Recorded Female 02/10/2022 1:42 PM CDT documented as of this encounter Consult Notes Thomas Luna M.D. - 03/14/2022 11:30 AM CDT SUBJECTIVE REASON FOR CONSULT Ms. Le is a 21-year-old woman, who is referred for gastroesophageal reflux. HISTORY OF PRESENT ILLNESS The patient had no symptoms until about a month after having had COVID-19. She developed some substernal burning. She described it as heartburn. She cut back on a lot of foods because of a list she read, and she started on omeprazole and actually was doing better, but almost as soon as she started doing better she started cutting back on the omeprazole. She did lose weight because of the restrictionson her diet, and about 10 days ago she again started taking it on a daily basis and in the last 2-3 days she has had no symptoms. She is not overweight. She does not do anything that could potentially aggravate this that she is aware of. Her COVID-19 was primarily upper respiratory and throat issues. There is no family history of any gastroesophageal reflux. She has had no change in her medicine. Shedoes take Adderall. She does not drink a lot of coffee. OBJECTIVE PHYSICAL EXAMINATION Abdomen: Her abdomen is completely benign. ASSESSMENT / PLAN #1 Possible gastroesophageal reflux It is certainly possible she developed some gastroesophageal reflux. There may be a bit of a sensitivity issue post COVID, but that is hard to tell. At this point, I recommended that she remain on the omeprazole 20 mg for 6 weeks, and then if her symptoms are indeed completely controlled, she can weanherself off and just use Pepcid for intermittent heartburn. If her symptoms become problematic, thenwere talking about having to do an upper endoscopy and potentially either a 24-hour impedance or a Luis capsule, but her symptoms are relatively mild, and I do not think she needs an extensive workup.I have reassured her and encouraged her to eat whatever she wants. She will contact me in about 6 weeks and determine if we need to do anything more. Thomas Luna M.D. CT CT Job ID: [id number] documented in this encounter Plan of Treatment Not on filedocumented as of this encounter Visit Diagnoses Diagnosis Gastroesophageal Reflux Disease documented in this encounter Additional Health Concerns Assessment Noted Time PHQ-9 Depression Total Score: 2 05/22/2020 7:40 AM CDT documented as of this encounter Care Teams Umbrella Supervisor Relationship Specialty Start Date End Date Mian Goode M.D. PCP - General Family Medicine 10/28/[address] [place] [address] documented as of this encounter
--- OUTSIDE RECORDS SUMMARY | 2022-10-05 20:29 | XMS_ITS | Encounter Summary ---
:2000 Author Organization [facility] Address [address] [place] [address] Care Team Providers Name Role Phone Mian Goode M.D. Primary Care Provider Reason for Visit Reason Comments ADHD refill request: short acting pill request in addition. Appointment Request (Routine) - Closed Specialty Diagnoses / Procedures Referred By Contact Refer red To Contact Family Medicine Referral ID Status Reason Start Date Expiration Date Visits Requ ested Visits Authorized [id number] Closed 03/16/2020 03/16/2021 1 1 Encounter Details Date Type Department Care Team Description 03/17/2020 Telemedicine Department of [facility] Mian Goode, Att ention Deficit Disorder Combined Type (Primary Dx); Medicine, [place] Mild Intermittent (HCC) [facility], [address] [place] [address] Professional [facility] in [place], [address] [place] [address] (Work) [place], [place] [phone] [address] (Fax) [phone] Social History Tobacco Use Types Packs/Day Years [...] or relatives? How often do you attend synagogue or 1 to 4 times per year 04/01 anglican services? Do you belong to any clubs or Yes 04/19/2022 organizations such as synagogue groups, unions, fraternal or athletic groups, or [...] place to sleep or slept in a group home (including now)? Education Answer Date Recorded What is the highest level of school you have Some college, n o degree 03/17/2020 completed or the highest degree you have received? Sex Assigned at Date Recorded Female 02/10/2022 1:42 PM CDT documented as of this encounter Progress Notes Mian Goode M.D. - 03/17/2020 3:00 PM CDT SUBJECTIVE CHIEF COMPLAINT / REASON FOR VISIT Carrie Le is a 19 y.o. female who presents for evaluation of ADHD (refill request: short acting pill request in addition.). HISTORY OF PRESENT ILLNESS This is a video visit. She has a history of ADHD and has been on methylphenidate ER 20 mg daily which has worked well for her in the past. When I met with her last summer she reported only taking it onspecific days when she felt she needed additional help with focus and concentration. She seemed to do well this fall during her freshman year of college at [employer]. However, since classes have become online exclusively recently she is finding that she is having more difficulty with focus and concentration. Therefore she began taking methylphenidate ER 20 mg daily and it is working well. She would simply like a new prescription for it, and she would also like to try short-acting methylphenidate inthe afternoon to help her later in the day. She feels that the methylphenidate ER tends to wear off after about 6 hours. She does not report any side effects. She also requests a letter verifying her diagnosis of ADHD that she can present to her school for possible accommodations. Current Outpatient Medications on File Prior to Visit Medication Sig Dispense Refill ??? cetirizine (ZyrTEC) 10 mg tablet Take 10 mg by mouth daily as needed. ??? ibuprofen (ADVIL) 200 mg tablet Take 2 tablets by mouth every 6 (six) hours as needed for pain. ??? [DISCONTINUED] METHYLPHENIDATE HCL ORAL Take 20 mg by mouth daily. ??? [DISCONTINUED] VENTOLIN HFA 90 mcg/actuation inhaler INHALE 2 PUFFS BY MOUTH EVERY FOUR HOURS ASNEEDED FOR COUGH AND/OR WHEEZE 36 g 3 ??? [DISCONTINUED] MULTIVITAMIN ORAL Take 1 tablet by mouth daily. No current facility-administered medications on file prior to visit. Consult conducted via real-time audio/video technology by Mian Goode M.D. in [facility] to the patient in her home. This Video Visit was performed during the COVID- emergency, when many states had issued [id number] orders. The following portions of the patient's history were reviewed and updated as appropriate: allergies,current medications, family history, medical history, social history, surgical history and problem list. OBJECTIVE PHYSICAL EXAM Limited exam was performed by video. General: Awake alert in no acute distress. Mental status: Affect is appropriate. Answers questions appropriately. ASSESSMENT / PLAN #1 Attention Deficit Disorder Combined Type She will continue on methylphenidate ER 20 mg daily each morning and a new prescription was sent to her pharmacy. She will also trial methylphenidate short-acting 10 mg each afternoon. If she finds that this dose of the short acting is not adequate then she will contact me and we can increase the doseto 20 mg each afternoon. I will also send her a letter verifying her diagnosis of ADHD via portal that she can present to her school for possible accommodations. #2 Asthma Mild Intermittent (HCC) Prescription for Ventolin inhaler was sent to her pharmacy to keep on file. Answers for HPI/ROS submitted by the patient on 03/17/2020 No general issues: Yes No eye issues: Yes No ENT issues: Yes No heart issues: Yes No respiratory issues: Yes No GI issues: Yes No muscle/bone issues: Yes No skin issues: Yes Headache: Yes Little interest or pleasure in doing things: Yes Feeling nervous, anxious or on edge: Yes No blood/lymph issues: Yes No urinary/reproductive issues: Yes documented in this encounter Plan of Treatment Not on filedocumented as of this encounter Visit Diagnoses Diagnosis Attention Deficit Disorder Combined Type - Primary Asthma Mild Intermittent (HCC) documented in this encounter Additional Health Concerns Assessment Noted Time PHQ-9 Depression Total Score: 9 01/31/2017 12:01 AM CS T documented as of this encounter Care Teams Physician Extender Relationship Specialty Start Date End Date Mian Goode M.D. PCP - General Family Medicine 10/28/06 [address] [place] [address] documented as of this encounter
--- OUTSIDE RECORDS SUMMARY | 2022-10-05 20:29 | XMS_ITS | Encounter Summary ---
:2000 Author Organization [facility] Address [address] [place] [address] Care Team Providers Name Role Phone Mian Goode M.D. Primary Care Provider Reason for Visit Reason Comments Med Refill Encounter Details Date Type Department Care Team Description 07/31/2022 Refill Department of Family Medicine, Sven Jenkins APRN, Med Refill [facility] M.S.N. [address] Professional [address] [place] [address] [place] [address] [place] [facility] [address] [place] [address] Social History Tobacco Use [...] or relatives? How often do you attend worship or 1 to 4 times per year 04/01 scientologist services? Do you belong to any clubs or Yes 04/19/2022 organizations such as worship groups, unions, fraternal or athletic groups, or [...] documented as of this encounter Care Teams Security Professional Relationship Specialty Start Date End Date Mian Goode M.D. PCP - General Family Medicine 10/28/06 [address] [place] [address] documented as of this encounter
--- OUTSIDE RECORDS SUMMARY | 2022-10-05 20:29 | XMS_ITS | Encounter Summary ---
:2000 Author Organization [facility] Address [address] [place] [address] Care Team Providers Name Role Phone Mian Goode M.D. Primary Care Provider Encounter Details Date Type Department Care Team Description 08/01/2021 Patient Self-Triage CONNECTED CARE Symptom Solutions Development Analyst, Provider Social History Tobacco Use Types Packs/Day [...] or relatives? How often do you attend islam or 1 to 4 times per year 04/01 hoahaoism services? Do you belong to any clubs or Yes 04/19/2022 organizations such as islam groups, unions, fraternal or athletic groups, or [...] place to sleep or slept in a [place] [facility] facility (including now)? Education Answer Date Recorded What [...] documented as of this encounter Care Teams Engineer Technician Relationship Specialty Start Date End Date Mian Goode M.D. PCP - General Family Medicine 10/28/06 [address] [place] [address] documented as of this encounter
--- OUTSIDE RECORDS SUMMARY | 2022-10-05 20:29 | XMS_ITS | Encounter Summary ---
:2000 Author Organization [facility] Address [address] [place] [address] Care Team Providers Name Role Phone Mian Goode M.D. Primary Care Provider Reason for Visit Reason Comments COVID Nurse Line Encounter Details Date Type Department Care Team Description 04/14/2020 Clinical Division of Oral and Prescheduling, COVID Nurse Line Communication Maxillofacial Surgery Provider in [place], [place] [address] [place] [address] Social History Tobacco Use Types Packs/Day Years [...] 1 to 4 times per year 04/01 yazdanism services? Do you belong to any clubs [...] place to sleep or slept in a jail (including now)? Education Answer Date Recorded What is the highest level of school you have Some college, n o degree 03/17/2020 completed or the highest degree you have received? Sex Assigned at Date Recorded Female 02/10/2022 1:42 PM CDT documented as of this encounter Miscellaneous Notes Telephone Encounter - Jr Hugo - 04/14/2020 8:48 AM CDT 1. In the past 14 days, have you been tested for COVID-19 with a positive or pending result? no 2. In the past 14 days, do you, anyone in the household, or anyone you have had prolonged exposure have (any of the following)? a. Fever = 38.0 C (100.5 F) lasting 24 hours? no b. New symptoms (Specifically: cough, shortness of breath, respiratory distress, sore throat, diarrhea, chills, myalgia's (muscle aches), loss of smell, or change or loss of taste sensation)? no c. Had close contact with persons who are under quarantine or isolation for COVID? no d. Had close contact with a patient with known or possible COVID-19? no Route reply to: [facility] SCH[facility]UL[facility] Scheduling Contact Number: [phone] documented in this encounter Plan of Treatment Not on filedocumented as of this encounter Visit Diagnoses Not on filedocumented in this encounter Additional Health Concerns Assessment Noted Time PHQ-9 Depression Total Score: 9 01/31/2017 12:01 AM CS T documented as of this encounter Care Teams Process Development Technician Relationship Specialty Start Date End Date Mian Goode M.D. PCP - General Family Medicine 10/28/[address] [place] [phone] documented as of this encounter
--- OUTSIDE RECORDS SUMMARY | 2022-10-05 20:29 | XMS_ITS | Encounter Summary ---
:2000 Author Organization [facility] Address [address] [place] [address] Care Team Providers Name Role Phone Mian Goode M.D. Primary Care Provider Encounter Details Date Type Department Care Team Description 10/24/2021 Orders Only RST PCP HLTH MNT Mian Goode M.D. [address] [place], [place] [phone] (Wo rk) Social History [...] or relatives? How often do you attend restorationist or 1 to 4 times per year 04/01 scientology services? Do you belong to any clubs or Yes 04/19/2022 organizations such as restorationist groups, unions, fraternal or athletic groups, or [...] place to sleep or slept in a assisted (including now)? Education Answer Date Recorded What [...] documented as of this encounter Care Teams Agronomy Technician Relationship Specialty Start Date End Date Mian Goode M.D. PCP - General Family Medicine 10/28/06 [address] [place] [address] documented as of this encounter
--- OUTSIDE RECORDS SUMMARY | 2022-10-05 20:29 | XMS_ITS | Encounter Summary ---
:2000 Author Organization [facility] Address [address] [place] [address] Care Team Providers Name Role Phone Mian Goode M.D. Primary Care Provider Reason for Visit Reason Comments Asthma Appointment Request (Routine) - Closed Specialty Diagnoses / Procedures Referred By Contact Refer red To Contact Family Medicine Referral ID Status Reason Start Date Expiration Date Visits Requ ested Visits Authorized [id number] Closed 05/15/2020 05/15/2021 1 1 Encounter Details Date Type Department Care Team Description 05/22/2020 Telemedicine Department of [facility] Mian Goode Ast hma Mild Intermittent (HCC) (Primary Dx); Medicine, [place] [facility] [place], [address] [place] [address] [phone] [place], [place] [address]Y [address] (Work) [place], [place] [phone] [address] (Fax) [phone] Social History Tobacco Use Types Packs/Day Years [...] or relatives? How often do you attend rastafari or 1 to 4 times per year 04/01 latter-day services? Do you belong to any clubs or Yes 04/19/2022 organizations such as rastafari groups, unions, fraternal or athletic groups, or [...] place to sleep or slept in a [facility] (including now)? Education Answer Date Recorded What is the highest level of school you have Some college, n o degree 03/17/2020 completed or the highest degree you have received? Sex Assigned at Date Recorded Female 02/10/2022 1:42 PM CDT documented as of this encounter Progress Notes Mian Goode M.D. - 05/22/2020 8:00 AM CDT SUBJECTIVE CHIEF COMPLAINT / REASON FOR VISIT Carrie Le is a 19 y.o. female who presents for evaluation of Asthma. HISTORY OF PRESENT ILLNESS This is a video visit. She wanted to discuss asthma. She states that her asthma tends to be triggered by her allergies. When she went to college last fall at [employer] her allergies flared up at the [facility] July which she believes is due to a large prairie that was blooming at the time period. She required an emergency department visit for her asthma. She used an albuterol nebulizer and she wonders if she should have a nebulizer on hand in case her asthma flares this year. She has an albuterol inhaler. In the past as a young child she was on Flovent intermittently. For allergies she uses Zyrtec andFlonase. Her asthma and allergies are well controlled currently. Current Outpatient Medications on File Prior to Visit Medication Sig Dispense Refill ??? cetirizine (ZyrTEC) 10 mg tablet Take 10 mg by mouth daily as needed. ??? ibuprofen (ADVIL) 200 mg tablet Take 2 tablets by mouth every 6 (six) hours as needed for pain. ??? methylphenidate HCl (METADATE ER) 20 mg ER tablet Take 1 tablet (20 mg total) by mouth every morning. 84 tablet 0 ??? methylphenidate HCl (RITALIN) 10 mg tablet Take 1 tablet (10 mg total) by mouth daily. Take in the afternoon. 84 tablet 0 ??? Ventolin HFA inhaler Inhale 2 puffs every 4 (four) hours as needed for wheezing or shortness of breath. 18 g 5 No current facility-administered medications on file prior to visit. Consult conducted via real-time audio/video technology by Mian Goode M.D. in [facility] to the patient in her home. This Video Visit was performed during the COVID- emergency, when many states had issued [id number] orders. The following portions of the patient's history were reviewed and updated as appropriate: allergies,current medications, family history, medical history, social history, surgical history and problem list. OBJECTIVE PHYSICAL EXAM Limited physical exam was performed via video. General: Awake alert no acute distress. ASSESSMENT / PLAN #1 Asthma Mild Intermittent (HCC) #2 Allergy Seasonal Her asthma and allergies are well controlled currently on no medication. However, given that she hada flare of both when she went to college at the end of July last year, we discussed options for treatment. I recommend starting Singulair 10 mg daily about 2 weeks prior to anticipation of her allergy season. In addition she will continue to use Zyrtec and Flonase. She may use her albuterol inhaler as needed for asthma symptoms. After discussion she did not feel that she needed to have an albuterolnebulizer. If she notices that her asthma flares despite being on Singulair, Zyrtec, and Flonase, then she should contact me for a prescription for Flovent 220 mcg 2 puffs twice daily. Total time of video visit was 10 minutes. Answers for HPI/ROS submitted by the patient on 05/22/2020 No general issues: Yes No eye issues: Yes No ENT issues: Yes No heart issues: Yes Shortness of breath: Yes Coughing up mucus (phlegm): Yes No GI issues: Yes No muscle/bone issues: Yes No skin issues: Yes No neurologic issues: Yes No mental health issues: Yes No blood/lymph issues: Yes No urinary/reproductive issues: Yes documented in this encounter Plan of Treatment Not on filedocumented as of this encounter Visit Diagnoses Diagnosis Asthma Mild Intermittent (HCC) - Primary Allergy Seasonal documented in this encounter Additional Health Concerns Assessment Noted Time PHQ-9 Depression Total Score: 2 05/22/2020 7:40 AM CDT documented as of this encounter Care Teams Paddle Dyeing Machine Operator Relationship Specialty Start Date End Date Mian Goode M.D. PCP - General Family Medicine 10/28/06 [address] [place] [address] documented as of this encounter
--- OUTSIDE RECORDS SUMMARY | 2022-10-05 20:29 | XMS_ITS | Encounter Summary ---
:2000 Author Organization [facility] Address [address] [place] [address] Care Team Providers Name Role Phone Mian Goode M.D. Primary Care Provider Reason for Visit Reason Onset Date Comments Outpatient COVID-19 Testing 01/07/2021 Encounter Details Date Type Department Care Team Description 01/07/2021 External Outreach Department of Family Post, Davin Narayanan, Contact With And Medicine, [place] [address] M.DSanti (Suspected) Exposure Street Professional [address] [facility] W To COVID-19 (Primary Building in [place], [place] Dx) [place] [address] [address] [facility] [phone] [place], [place] (Work) [address] Social History Tobacco Use Types Packs/Day Years [...] or relatives? How often do you attend nondenominational or 1 to 4 times per year 04/01 gnosticism services? Do you belong to any clubs or Yes 04/19/2022 organizations such as nondenominational groups, unions, fraternal or athletic groups, or [...] documented as of this encounter Progress Notes Elba Ngo RSantiN. - 01/07/2021 7:38 AM CST Encounter created for COVID-19 screening. ES UNDERWEAR OPERATOR documented in this encounter Plan of Treatment Not on filedocumented as of this encounter Procedures Procedure Name Priority Date/Time Associated Diagnosis Comme nts SARS CORONAVIRUS-2, Routine 01/07/2021 9:12 AM Contact With An d Results for this PCR LADIES UNDERWEAR OPERATOR (Suspected) Exposure procedu re are in To COVID-19 the results section. documented in this encounter Results SARS Coronavirus-2, PCR Asymptomatic (01/07/2021 9:12 AM LADIES UNDERWEAR OPERATOR) [facility] Method Time Signature SARS Swab, 01/07/2021 DTL Coronavirus-2 Nasopharynx 6:43 PM LADIES UNDERWEAR OPERATOR Source SARS Undetected Undetected 01/07/2021 DTL Coronavirus-2 6:43 PM LADIES UNDERWEAR OPERATOR , PCR Comment: SARS-CoV-2 RNA absent. This result does not rule out COVID-19 in the patient, as the sensitivity of the test depends o n the timing of the specimen collection and quality of the specimen. Result should be correlated with patient's history and clinical presentat ion. ----ADDITIONAL INFORMATION---- This test was developed and its performa nce characteristics determined by [facility] in a manner co nsistent with CLIA requirements. Independent review by the U.S. Food and Drug Administration is pending. Visit the CDC website: https://www.cdc.gov/coronavirus/ ?? for the most recent guidelines on Gage virus testing. Fact Sheet for Healthcare Providers: (https://www.GeoOP/it-mmfil es/ Provider_Fact_Sheet_for_[facility]_COVI D-19.pdf) Fact Sheet for Patients: (https://www.GeoOP/it-mmfil es/ Patient_Fact_Sheet_for_COVID-19.pdf) Specimen Anatomical Collection Method Collection Time Receive d Time (Source) Location / / Volume Laterality Varies 01/07/2021 9:12 AM 1:27 (Nasopharynx) LADIES UNDERWEAR OPERATOR PM LADIES UNDERWEAR OPERATOR Davin Galo M.D. LAB MICROBIOLOGY - GENERAL Nyasia KOCH Performing Organization Address City/State/ZIP Code Phon e Number [facility] - [address] [place] [phone] [facility] [address] [facility] [address] [facility] documented in this encounter Visit Diagnoses Diagnosis Contact With And (Suspected) Exposure To COVID-19 - Primary documented in this encounter Additional Health Concerns Infection Onset Date Last Indicated Resolved Time COVID19 Pending 01/07/2021 01/07/2021 01/07/2021 6:44 PM LADIES UNDERWEAR OPERATOR Assessment Noted Time PHQ-9 Depression Total Score: 2 05/22/2020 7:40 AM CDT documented as of this encounter Care Teams Airplane Pilot Chief Relationship Specialty Start Date End Date iMan Goode M.D. PCP - General Family Medicine 10/28/[address] [place] [address] documented as of this encounter
--- OUTSIDE RECORDS SUMMARY | 2022-10-05 20:29 | XMS_ITS | Encounter Summary ---
:2000 Author Organization [facility] Address [address] [place] [address] Care Team Providers Name Role Phone Mian Goode M.D. Primary Care Provider Encounter Details Date Type Department Care Team Description 07/18/2021 Admin Visit Department of Family Medicine, [address] [address] Social History Tobacco Use Types Packs/Day Years [...] or relatives? How often do you attend baptism or 1 to 4 times per year 04/01 episcopal services? Do you belong to any clubs or Yes 04/19/2022 organizations such as baptism groups, unions, fraternal or athletic groups, or [...] place to sleep or slept in a fpc (including now)? Education Answer Date Recorded What [...] documented as of this encounter Care Teams Assembler Surgical Garment Relationship Specialty Start Date End Date Mian Goode M.D. PCP - General Family Medicine 10/28/06 [address] [place] [address] documented as of this encounter
--- OUTSIDE RECORDS SUMMARY | 2022-10-05 20:29 | XMS_ITS | Encounter Summary ---
:2000 Author Organization [facility] Address [address] [place] [address] Care Team Providers Name Role Phone Mian Goode M.D. Primary Care Provider Reason for Visit Reason Comments Medication Problem Encounter Details Date Type Department Care Team Description 04/20/2020 Clinical Communication RST Nely Camarena Medication Problem Mail Order Pharmacy L, Pharm.D., [address] [facility] [place], [place] [address] [facility] [address] [place], [place] [phone] [address] Social History Tobacco Use Types Packs/Day Years [...] or relatives? How often do you attend cheondoism or 1 to 4 times per year 04/01 rastafari services? Do you belong to any clubs or Yes 04/19/2022 organizations such as cheondoism groups, unions, fraternal or athletic groups, or [...] place to sleep or slept in a mcfp (including now)? Education Answer Date Recorded What is the highest level of school you have Some college, n o degree 03/17/2020 completed or the highest degree you have received? Sex Assigned at Date Recorded Female 02/10/2022 1:42 PM CDT documented as of this encounter Miscellaneous Notes Telephone Encounter - Nely Díaz, Pharm.D., R.Ph. - 04/20/2020 4:39 PM CDT Please route response back to P [facility] We received a prescription for methylphenidate 10mg and for ER 20mg for a 30-day supply. The patientwas hoping to get a [id number] supply since she uses our mail order service and it would be the same copay. If that is acceptable, please send new prescriptions and we will delete the ones we have for #30. Thank you, [facility] - Mail Order documented in this encounter Plan of Treatment Not on filedocumented as of this encounter Visit Diagnoses Not on filedocumented in this encounter Additional Health Concerns Assessment Noted Time PHQ-9 Depression Total Score: 9 01/31/2017 12:01 AM CS T documented as of this encounter Care Teams Workplace Trainer And Assessor Relationship Specialty Start Date End Date Mian Goode M.D. PCP - General Family Medicine 10/28/[address] [place] [address] documented as of this encounter
--- OUTSIDE RECORDS SUMMARY | 2022-10-05 20:29 | XMS_ITS | Encounter Summary ---
:2000 Author Organization [facility] Address [address] [place] [address] Care Team Providers Name Role Phone Mian Goode M.D. Primary Care Provider Reason for Visit Reason Comments GERD Questions and concerns Encounter Details Date Type Department Care Team Description 02/14/2022 Telemedicine Department of Radha Zimmerman troesophageal Reflux Medicine, [place] [facility] M.D. Disease (Primary Dx) Clinic [place], [address] Professional Building [address] in [facility] [phone] [place] (Work) [address] [place] [address] [address] [phone] [place], [place] (Fax) [phone] Social History Tobacco Use Types Packs/Day Years [...] or relatives? How often do you attend judaism or 1 to 4 times per year 04/01 oriental orthodox services? Do you belong to any clubs or Yes 04/19/2022 organizations such as judaism groups, unions, fraternal or athletic groups, or [...] place to sleep or slept in a nursing home (including now)? Education Answer Date Recorded What is the highest level of school you have Some college, n o degree 03/17/2020 completed or the highest degree you have received? Sex Assigned at Date Recorded Female 02/10/2022 1:42 PM CDT documented as of this encounter Progress Notes Radha Carty M.D. - 02/14/2022 9:30 AM CDT SUBJECTIVE CHIEF COMPLAINT / REASON FOR VISIT Carrie Le is a 21 y.o. female. HISTORY OF PRESENT ILLNESS This visit was a done by virtual/video technology 1. GERD She notes that she had COVID in mid December. She was not hospitalized. Symptoms resolved. However beginning on December 23 she developed symptoms of heartburn. Specifically she had burning that was inthe sternal area of her chest. It was worse after eating and also she had painful swallowing. She also had a globus sensation in her throat as well as the sticky feeling in her throat. She has occasional regurgitation of stomach contents into the throat. No dysphagia. She also noted some shortness of breath but thought it was related to asthma as it felt like her asthma and would respond to her albuterol. The chest pain was not pleuritic. Chest pain did not radiate anywhere. She does note she also had frequent throat clearing with this. She tried Pepcid for two days but did feel it helped. Symptomsgrew more severe and she went to the emergency department in [place] on January 30. Unfortunately we do not have access to any records. She does not recall having blood work done there though she states she did have an IV in so may have had blood work done when the IV was placed. She had a ECG that she reports was normal. She does not believe any imaging was done. She was given a GI cocktail and she states that numbed the pain significantly helping. Based on this she relays that the healthcare provider thought she likely did have occurred and prescribed omeprazole. She has been taking omeprazole daily for the past 15 days. It seems to have helped quite a bit. The symptoms actually resolved completely for a few days but have returned and much more mild level in recent days. However she no longerhas any painful swallowing. She has altered her diet significantly. She has been following a fairly healthy plant based diet but recently is changed to mostly eating bread, red vegetables and bananas. She does note that she was not having any abdominal pain prior to starting omeprazole but has had some cramps and constipation with the omeprazole. She states her shortness of breath is gone . She is not on any hormonal medications. She is attending school in [place] and does not currently have a car but states if needed she could present to [place]. She drinks alcohol generally twice per week but has not drank alcohol since going to the emergency department. Denies any frequent or recent NSAID use. No leg swelling. OBJECTIVE PHYSICAL EXAM Deferred other than what can be done by video observation She is in no distress. She does not appear ill. She is alert. ASSESSMENT / PLAN 1. Probable GERD She is a thin young woman and not the typical patient to get GERD however factors that suggest symptoms were due to GERD is a burning nature of the sternal pain, the fact that the pain was worse with eating and swallowing, the fact that the pain significantly improved with GI cocktail administration, the fact that she also had globus sensation, throat clearing and regurgitation with the symptoms. We discussed that shortness of breath would not be a sign or symptom related to GERD but she does have known asthma and states that stress has flared up her asthma in the past. Additionally GERD could flare-up asthma and she states the shortness of breath she had felt like her asthma and did respond to albuterol. All of this would suggest that the shortness of breath was related to asthma. Pain was not pleuritic. We discussed that with COVID there can be an increased risk of blood clots in the lungs andit is unclear if a D- dimer was done in the emergency department but, again, the constellation of the above findings do suggest this is due to GERD. Symptoms are significantly improved uneven resolve for a few days but then return. I have sent her patient Education handout on lifestyle approaches to this. I recommended avoiding alcohol. I recommended continue on the omeprazole. I have discussed that if after two more weeks (a total of four weeks) of the omeprazole the symptoms are not completely goneor 95% gone I have asked her to reach out and we can request a GI referral. If symptoms are gone in two more weeks then I recommend a total of eight weeks of therapy and then discontinuing it by switching to every other day and members all for 1-2 weeks and then stopping it. This visit was 25 minutes in duration with documentation. Consult conducted via real-time audio/video technology by Radha Carty M.D. in [facility] to the patient in Patient's Home documented in this encounter Plan of Treatment Not on filedocumented as of this encounter Visit Diagnoses Diagnosis Gastroesophageal Reflux Disease - Primar y documented in this encounter Additional Health Concerns Assessment Noted Time PHQ-9 Depression Total Score: 2 05/22/2020 7:40 AM CDT documented as of this encounter Care Teams Production Stage Manager Relationship Specialty Start Date End Date Mian Goode M.D. PCP - General Family Medicine 10/28/06 [address] [place] [address] documented as of this encounter
--- OUTSIDE RECORDS SUMMARY | 2022-10-05 20:29 | XMS_ITS | Encounter Summary ---
:2000 Author Organization [facility] Address [address] [place] [address] Care Team Providers Name Role Phone Mian Goode M.D. Primary Care Provider Encounter Details Date Type Department Care Team Description 01/07/2021 Admin Visit Department of Family Medicine, [address] [address] Social History Tobacco Use Types Packs/Day Years [...] or relatives? How often do you attend quaker or 1 to 4 times per year 04/01 anabaptist services? Do you belong to any clubs or Yes 04/19/2022 organizations such as quaker groups, unions, fraternal or athletic groups, or [...] place to sleep or slept in a halfway (including now)? Education Answer Date Recorded What [...] COVID19 Pending 01/07/2021 01/07/2021 01/07/2021 6:44 PM MANAGER WEB APPLICATION Assessment Noted Time PHQ-9 Depression Total Score: 2 05/22/2020 7:40 AM CDT documented as of this encounter Care Teams Tire Fixer Relationship Specialty Start Date End Date Mian Goode M.D. PCP - General Family Medicine 10/28/06 [address] [place] [address] documented as of this encounter
--- OUTSIDE RECORDS SUMMARY | 2022-10-05 20:29 | XMS_ITS | Encounter Summary ---
:2000 Author Organization [facility] Address [address] [place] [address] Care Team Providers Name Role Phone Mian Goode M.D. Primary Care Provider Encounter Details Date Type Department Care Team Description 11/21/2021 Orders Only Department of Family Cassidy Brown , Medicine, [facility] [place], [address] [place] [address] Professional Building in [place], [place] [address] [address] [facility] [address] [place] [address] [phone] Social History Tobacco Use Types Packs/Day Years [...] or relatives? How often do you attend restoration or 1 to 4 times per year 04/01 temple services? Do you belong to any clubs or Yes 04/19/2022 organizations such as restoration groups, unions, fraternal or athletic groups, or [...] place to sleep or slept in a intermediate (including now)? Education Answer Date Recorded What [...] documented as of this encounter Care Teams Psychiatry Adult Physician Relationship Specialty Start Date End Date Mian Goode M.D. PCP - General Family Medicine 10/28/06 [address] [place] [phone] documented as of this encounter
--- OUTSIDE RECORDS SUMMARY | 2022-10-05 20:29 | XMS_ITS | Encounter Summary ---
:2000 Author Organization [facility] Address [address] [place] [address] Care Team Providers Name Role Phone Mian Goode M.D. Primary Care Provider Encounter Details Date Type Department Care Team Description 10/24/2021 Immunization Department of Family Medicine, [place] [facility] in [address] [address] Social History Tobacco Use Types Packs/Day Years [...] or relatives? How often do you attend sabianist or 1 to 4 times per year 04/01 jehovah's witness services? Do you belong to any clubs or Yes 04/19/2022 organizations such as sabianist groups, unions, fraternal or athletic groups, or [...] place to sleep or slept in a long-term (including now)? Education Answer Date Recorded What [...] documented as of this encounter Care Teams Assistant Paralegal Relationship Specialty Start Date End Date Mian Goode M.D. PCP - General Family Medicine 10/28/06 [address] [place] [address] documented as of this encounter
--- OUTSIDE RECORDS SUMMARY | 2022-10-05 20:29 | XMS_ITS | Encounter Summary ---
:2000 Author Organization [facility] Address [address] [place] [address] Care Team Providers Name Role Phone Mian Goode M.D. Primary Care Provider Reason for Referral Specialty Diagnoses / Procedures Referred By Contact Refer red To Contact [facility] [address] [address] [place] [address] Referral ID Status Reason Start Date Expiration Date Visits Requ ested Visits Authorized Reason for Visit Appointment Request (Routine) - Closed Specialty Diagnoses / Procedures Referred By Contact Refer red To Contact Family Medicine Referral ID Status Reason Start Date Expiration Date Visits Requ ested Visits Authorized [id number] Closed 02/24/2021 02/24/2022 1 1 Encounter Details Date Type Department Care Team Description 03/01/2021 Immunization Department of [facility] er For COVID-19 Medicine, [facility] Vaccin e Immunization Clinic [place], 41 (Prim yee Dx) [facility] in [address] [place] [address] Social History Tobacco Use [...] or relatives? How often do you attend yazidism or 1 to 4 times per year 04/01 yazidism services? Do you belong to any clubs or Yes 04/19/2022 organizations such as yazidism groups, unions, fraternal or athletic groups, or [...] as of this encounter Plan of Treatment Scheduled Referrals Name Type Priority Associated Diagnoses Order S chedule Covid immunization Outpatient Referral Routine Encounter For E xpected: office visit Covid-19 Vaccine 03/22/2021, Subsequent; 21 days Immunization Expires: 03/01/2024 documented as of this encounter Visit Diagnoses Diagnosis Encounter For COVID-19 Vaccine Immunizat ion - Primary documented in this encounter Additional Health Concerns Assessment Noted Time PHQ-9 Depression Total Score: 2 05/22/2020 7:40 AM CDT documented as of this encounter Care Teams Esthetician Spa Relationship Specialty Start Date End Date Mian Goode M.D. PCP - General Family Medicine 10/28/06 [address] [place] [address] documented as of this encounter
--- OUTSIDE RECORDS SUMMARY | 2022-10-05 20:29 | XMS_ITS | Encounter Summary ---
:2000 Author Organization [facility] Address [address] [place] [address] Care Team Providers Name Role Phone Mian Goode M.D. Primary Care Provider Encounter Details Date Type Department Care Team Description 03/13/2022 Orders Only RST PCP [facility] Nicolasa Dukes M.D. [address] [place], [place] [phone] (Wo rk) Social History [...] or relatives? How often do you attend zoroastrian or 1 to 4 times per year 04/01 yazidi services? Do you belong to any clubs or Yes 04/19/2022 organizations such as zoroastrian groups, unions, fraternal or athletic groups, or [...] documented as of this encounter Care Teams Arcade Game Technician Relationship Specialty Start Date End Date Mian Goode M.D. PCP - General Family Medicine 10/28/06 [address] [place] [address] documented as of this encounter
--- OUTSIDE RECORDS SUMMARY | 2022-10-05 20:29 | XMS_ITS | Encounter Summary ---
:2000 Author Organization [facility] Address [address] [place] [address] Care Team Providers Name Role Phone Mian Goode M.D. Primary Care Provider Reason for Visit Reason Comments Med Refill Encounter Details Date Type Department Care Team Description 05/01/2022 Refill Department of Family Medicine, Cassidy Brown, Med Refill [facility] [address] Professional [address] [place] [address] [place] [address] [place] [address] [place] [address] Social History Tobacco Use [...] or relatives? How often do you attend episcopalian or 1 to 4 times per year 04/01 cheondoism services? Do you belong to any clubs or Yes 04/19/2022 organizations such as episcopalian groups, unions, fraternal or athletic groups, or [...] this encounter Miscellaneous Notes Telephone Encounter - Parisa Olivo L.P.N. - 05/02/2022 10:58 AM CDT The patient is requesting a renewal of Methylphenidate 10 mg, per Mian Goode M.D., as outlined intheir Problem List Overview for ADD. The renewal is pended. There are no nursing concerns at this time. Date the last Rx was able to be filled on: 11/21/2021 Urine Drug Screening: Per Provider discretion Screening/Assessments due: No screenings due for patient at this time. Next Provider Visit due: 12/2022 If no concerns or follow-up, no need to route back to care team nurse or nurse renewal team.. Telephone Encounter - Betty Perez V. - 05/02/2022 10:35 AM CDT Nurse review: Unable to forward request to provider; Controlled Substance Primary Provider: Mian Goode M.D. Requested Prescriptions Pending Prescriptions Disp Refills ??? methylphenidate HCl (RITALIN) 10 mg tablet [Pharmacy Med Name: METHYLPHENIDATE HCL 10MG TABS] 168 tablet 0 Sig: TAKE 1 TABLET BY MOUTH TWO TIMES A DAY Pharmacy (include location): [facility] - [place], [place] - [address] ?[phone] documented in this encounter Plan of Treatment Not on filedocumented as of this encounter Visit Diagnoses Not on filedocumented in this encounter Additional Health Concerns Assessment Noted Time PHQ-9 Depression Total Score: 2 05/22/2020 7:40 AM CDT documented as of this encounter Care Teams Home Inspector Relationship Specialty Start Date End Date Mian Goode M.D. PCP - General Family Medicine 10/28/[address] [place] [address] documented as of this encounter
--- OUTSIDE RECORDS SUMMARY | 2022-10-05 20:29 | XMS_ITS | Encounter Summary ---
:2000 Author Organization [facility] Address [address] [place] [address] Care Team Providers Name Role Phone Mian Goode M.D. Primary Care Provider Reason for Visit Reason Onset Date Comments Testing For Upper Respiratory Virus Symptoms 12/01/2020 Encounter Details Date Type Department Care Team Description 12/01/2020 External Outreach Department of [facility] Post, Davin Narayanan, [facility], [place] [address] M.D. Respiratory (Primary Street Professional [address] [facility]) [facility] in [facility] [phone] [address] [phone] [place], [place] (Work) [address] Social History Tobacco Use [...] or relatives? How often do you attend spiritism or 1 to 4 times per year 04/01 evangelical services? Do you belong to any clubs or Yes 04/19/2022 organizations such as spiritism groups, unions, fraternal or athletic groups, or [...] documented as of this encounter Progress Notes Johanny Coleman RMarc. - 12/01/2020 11:50 AM CST Encounter created for symptomatic infectious disease screening with possible COVID, Influenza, and RSV testing. E ARCHITECT documented in this encounter Plan of Treatment Not on filedocumented as of this encounter Procedures Procedure Name Priority Date/Time Associated Diagnosis Comme nts INFLUENZA A/B RNA, Routine 12/01/2020 1:53 PM Infection Upper Results for this PCR, VARIES AZURE ARCHITECT Respiratory procedure are i n the results section. SARS CORONAVIRUS-2, Routine 12/01/2020 1:53 PM Infection Upper Results for this PCR AZURE ARCHITECT Respiratory procedure are i n the results section. documented in this encounter Results Influenza A/B RNA, PCR, Varies (12/01/2020 1:53 PM AZURE ARCHITECT) [facility] Method Time Signature Influenza Swab, 12/02/2020 DTL A/B, Source Nasopharynx 4:55 PM AZURE ARCHITECT Influenza A, Undetected Undetected 12/02/2020 DTL PCR 4:55 PM AZURE ARCHITECT Comment: Influenza A RNA absent. Influenza B, PCR Undetected Undetected 12/02/2020 4:55 PM CS T DTL Comment: Influenza B RNA absent. ----ADDITIONAL INFORMATION---- This test was developed and its performa nce characteristics determined by [facility] in a manner consistent with CLIA requirements. This test has not been cleared or approved by the U.S. Yelena d and Drug Administration. Specimen Anatomical Collection Method Collection Time Receive d Time (Source) Location / / Volume Laterality Varies 12/01/2020 1:53 PM 5:17 (Nasopharynx) AZURE ARCHITECT PM AZURE ARCHITECT Davin Gaol M.D. LAB MICROBIOLOGY - GENERAL O RDERANATE Performing Organization Address City/State/ZIP Code Phon e Number [facility] - [address] [place], [place] [address] [place] [place] [address] Laboratories-[facility] [address] [facility] SARS Coronavirus-2, PCR Symptomatic (12/01/2020 1:53 PM AZURE ARCHITECT) [facility] Method Time Signature SARS Swab, 12/02/2020 DTL Coronavirus-2 Nasopharynx 4:33 PM AZURE ARCHITECT Source SARS Undetected Undetected 12/02/2020 DTL Coronavirus-2 4:33 PM AZURE ARCHITECT , PCR Comment: SARS-CoV-2 RNA absent. This result does not rule out COVID-19 in the patient, as the sensitivity of the test depends o n the timing of the specimen collection and quality of the specimen. Result should be correlated with patient's history and clinical presentat ion. ----ADDITIONAL INFORMATION---- This test was developed and its performa nce characteristics determined by [facility] in a manner co nsistent with CLIA requirements. Independent review by the U.S. Food and Drug Administration is pending. Visit the CDC website: https://www.cdc.gov/coronavirus/ ?? for the most recent guidelines on Gage virus testing. Fact Sheet for Healthcare Providers: (https://www.Intelleflex.Telkonet/it-mmfil es/ Provider_Fact_Sheet_for_[place]_COVI D-19.pdf) Fact Sheet for Patients: (https://www.Intelleflex.Telkonet/it-mmfil es/ Patient_Fact_Sheet_for_COVID-19.pdf) Specimen Anatomical Collection Method Collection Time Receive d Time (Source) Location / / Volume Laterality Varies 12/01/2020 1:53 PM 1 5:17 (Nasopharynx) AZURE ARCHITECT PM AZURE ARCHITECT Davin Galo M.D. LAB MICROBIOLOGY - GENERAL O RDERABLES Performing Organization Address City/State/ZIP Code Phon e Number [facility] - [address] [place], [place] [address] [place] [address] [facility] [address] [facility] documented in this encounter Visit Diagnoses Diagnosis Infection Upper Respiratory - Primary documented in this encounter Additional Health Concerns Infection Onset Date Last Indicated Resolved Time COVID19 Pending 12/01/2020 12/01/2020 12/02/2020 4:33 PM AZURE ARCHITECT Assessment Noted Time PHQ-9 Depression Total Score: 2 05/22/2020 7:40 AM CDT documented as of this encounter Care Teams Information Technology Advisor Relationship Specialty Start Date End Date Mian Goode M.D. PCP - General Family Medicine 10/28/[address] [place] [address] documented as of this encounter
--- OUTSIDE RECORDS SUMMARY | 2022-10-05 20:29 | XMS_ITS | Encounter Summary ---
:2000 Author Organization [facility] Address [address] [place] [address] Care Team Providers Name Role Phone Mian Godoe M.D. Primary Care Provider Reason for Visit Outpatient (Routine) - Closed Specialty Diagnoses / Procedures Referred By Contact Refer red To Contact Diagnoses Impacted Tooth Third Molar Dev Ross M.D., Marsha. [facility] Procedures OMS Panorex [address] [place] [address] Referral ID Status Reason Start Date Expiration Date Visits Requ ested Visits Authorized [id number] Closed 05/01/2020 05/01/2021 1 1 Encounter Details Date Type Department Care Team Description 05/01/2020 Hospital Encounter Division of Oral and Dev Ross, Maxillofacial Surgery in [place], Usman Wright. [place], [place] [address] [facility] [address] [place] [id number] Social History Tobacco Use Types Packs/Day Years [...] 1 to 4 times per year 04/01 mandaeism services? Do you belong to any clubs [...] PM CDT documented as of this encounter Medications at Time of Discharge Medication Sig Dispensed Refills Start Date End Date ibuprofen (ADVIL,MOTRIN) Take 2 tablets by 0 08/0 01/2013 200 mg tablet mouth every 6 (six) hours as needed for pain. HYDROcodone-acetaminophen Take 1-2 tablets by 12 tablet 0 0 05/01/2020 05/04/2020 (NORCO) 5-325 mg per mouth every 6 (six) tabletIndications: Acute hours as needed for Pain pain for up to 3 days Indication: acute pain. Do not exceed 8 tablets in 24 hours. cetirizine (ZyrTEC) 10 mg Take 10 mg [...] of breath. documented as of this encounter Plan of Treatment Not on filedocumented as of this encounter Results OMS Panorex (05/01/2020 9:27 AM CDT) Specimen (Source) Anatomical Location Collection Method / Collectio n Time Received Time / Laterality Volume Narrative This result has an attachment that is no t available. Dev Ross M.D., Juan PROCEDURE/MINOR SURGICAL ORD ERABLES documented in this encounter Visit Diagnoses Not on filedocumented in this encounter Additional Health Concerns Assessment Noted Time PHQ-9 Depression Total Score: 9 01/31/2017 12:01 AM CS T documented as of this encounter Care Teams Template Checker Relationship Specialty Start Date End Date Mian Goode M.D. PCP - General Family Medicine 10/28/06 [address] [place] [address] documented as of this encounter
--- OUTSIDE RECORDS SUMMARY | 2022-10-05 20:29 | XMS_ITS | Encounter Summary ---
:2000 Author Organization [facility] Address [address] [place] [address] Care Team Providers Name Role Phone Mian Goode M.D. Primary Care Provider Encounter Details Date Type Department Care Team Description 01/05/2021 Patient Self-Triage CONNECTED CARE Symptom Clinical Medical Transcriptionist, Provider Social History Tobacco Use Types Packs/Day [...] or relatives? How often do you attend rastafarian or 1 to 4 times per year 04/01 yazdanism services? Do you belong to any clubs or Yes 04/19/2022 organizations such as rastafarian groups, unions, fraternal or athletic groups, or [...] documented as of this encounter Care Teams Helicopter Dispatcher Relationship Specialty Start Date End Date Mian Goode M.D. PCP - General Family Medicine 10/28/06 [address] [place] [address] documented as of this encounter
--- OUTSIDE RECORDS SUMMARY | 2022-10-05 20:29 | XMS_ITS | Encounter Summary ---
:2000 Author Organization [facility] Address [address] [place] [address] Care Team Providers Name Role Phone Mian Goode M.D. Primary Care Provider Reason for Visit Reason Comments Gynecologic Exam Appointment Request (Routine) - Closed Specialty Diagnoses / Procedures Referred By Contact Refer red To Contact Family Medicine Diagnoses Pap Smear Examination Referral ID Status Reason Start Date Expiration Date Visits Requ ested Visits Authorized [id number] Closed 02/04/2022 02/04/2023 1 1 Encounter Details Date Type Department Care Team Description 04/23/2022 Office Visit Department of Family Radha Moreno P ap Smear Examination (Primary Dx); Medicine, [facility] GENERAL EXPEDITOR, C.N. P. Asthma Mild Persistent (HCC) Clinic [place], [address] [place] [address] Professional [facility] in [place], [address] [place] [address] (Work) [place] [address] Social History Tobacco Use Types Packs/Day [...] or relatives? How often do you attend sikhism or 1 to 4 times per year 04/01 samaritan services? Do you belong to any clubs or Yes 04/19/2022 organizations such as sikhism groups, unions, fraternal or athletic groups, or [...] Pulse 83 04/23/2022 9:55 AM CDT Temperature - - Respiratory Rate - - Oxygen Saturation - - Inhaled Oxygen Concentration - - Weight 48.8 kg (107 lb 9.4 oz) 04/23/2022 9:55 AM CDT Height 162 cm (5' 3.78) 04/23/2022 9:55 AM CDT Body Mass Index 18.59 04/23/2022 9:55 AM CDT documented in this encounter Patient Instructions Patient InstructionsRadha Moreno APRN, C.N.P. - 04/23/2022 10:00 AM CDT Images from the original note were not included. Pap Test A Pap Test A Pap test screens for cervical cancer. It can be done with a pelvic exam. A Pap involves collectingcells from your cervix, the lower, narrow end of your uterus that???s at the top of your vagina. Thecells are placed directly on a glass slide or put into a bottle filled with liquid. The cells are then sent to a lab where they are studied. The study of cells is called cytology. Screening for pre-cancerous cells is the first step in stopping the possible developmentof cervical cancer. When do you need a Pap test? Medical organizations recommend you should have your first Pap at age 21. Then, it is suggested you have a Pap every three years. After age 30, you may have a Pap every three to five years if you???ve had many negative tests in a row. In women over 30, the Pap is often combined with a test for human papillomavirus, also called HPV. HPV is a common sexually transmitted infection that can causecervicalcancer is some women. You may be advised by your health care provider for additional scheduledtesting if you have any of the following factors: ??? A diagnosis of cervical cancer or a Pap that showed precancerous cells ??? Exposure to a synthetic hormone estrogen called diethylstilbestrol, or AUREA, before ??? HIV infection ??? Weakened immune system because of organ transplant, chemotherapy or chronic corticosteroid use When can you stop having a Pap? Talk about your screening options with your health care provider. In certain situations you and yourhealth care provider may decide to end Pap testing.These may include: ??? After surgical removal of the uterus and cervix. This is called a total hysterectomy. If your hysterectomy was performed for a noncancerous condition, such as uterine fibroids, you may be able to discontinue routine Pap tests. But if your hysterectomy was for a precancerous or cancerous condition,your health care provider may recommend having a routine Pap test. ??? Older age. Older women may consider stopping routine Pap tests. Medical guidelines suggest you can stop having tests at 65 if you have had three negative tests in the last 10 years. However, special considerations are given if you have had any Pap test abnormality within the last 20 years. Sometimes screening is suggested to continue and more follow-up care is needed. Also, if you have a weakenedimmune system you may have to continue Pap screening beyond age 65. Pap results A Pap test is a safe way to screen for cervical cancer. However, a Pap test isn???t foolproof. It ispossible to receive false-negative results. There is noperfect test. Factors that can cause a false-negative result include: ??? Not getting enough cells to study. ??? Having a small number of abnormal cells. ??? Blood or inflammatory cells hiding the abnormal cells. Although it is possible for abnormal cells to go undetected, time is on your side. Cervical cancer usually takes several years to develop. And if one testdoesn???t find the abnormal cells, the next test most likely will. Preparing for your Pap There is nothing you need to do to prepare for your Pap test. It is suggestedthat you: ??? Do not have sex, douche or use any vaginal medicines or spermicidal foams, creams or jellies fortwo days before a Pap test. ??? Not schedule a Pap test during your menstrual period. The test can be done during your menstrualperiod, but it is best to schedule it at another time if possible. However, if you have abnormal bleeding do not delay your Pap test. There is no proven research that shows doing the above before a Pap test affects the results. However, these are reasonable suggestions to follow to help you get the best results possible. Do not skip your Pap appointment evenif you did not follow the above suggestions. During a Pap A Pap is performed as an outpatient procedure in a medical exam room. You lie on your back on an exam table with your knees bent and your heels resting in supports called stirrups. Your health care provider gently puts an instrument called a speculum into your vagina. See Figure 1. Putting the speculum into your vagina may cause you to feel pressure in your pelvic area. The speculum holds the mueller of the vagina apart so your health care provider can see your cervix. Your health care provider takes a sample of your cervical cells. Thisusually does not hurt. Your health care provider puts the cell sample collected from your cervix into a container holding liquid or onto a glass slide. The sample is delivered to a lab where it is examined under a microscope. Lab technicians look forcharacteristics in the cells that show cancer or a precancerous condition. After your Pap test, you can go about your day without any restrictions. Results Discuss your Pap results with your health care provider. Understand your results and how they affectyou and your health. Talk with your health careprovider about what happens next. Normal results If only normal cervical cells were discovered, you have a negative result. You do not need any further treatment or testing until your next Pap and pelvicexam. Abnormal results If abnormal or unusual cells were discovered, you have a positive result. A positive result does notmean you have cervical cancer. It depends on the typeof cells discovered in your Pap test. ??? Low-grade - This finding means that early changes in your cells have been discovered. This is called mild dysplasia. If you have this result, additional follow-up care and discussion with your health care provider is needed. ??? High-grade - This finding means that your cervical cells look very different from normal cells. This is called moderate to severe dysplasia. If you have this result, the abnormal cells usually needto be removed. Ask your health care provider about when you can expect the results of your Pap test. Results are usually available within a week. A member of your health care team contacts you with the results when they are available. You may receive results by letter, phone, or through the patient portal if you have chosen toreceive your results online. If you have questions about your condition or about the information in thismaterial, talk with your health care provider. This material is for your education and information only. This content does not replace medical advice, diagnosis or treatment. New medical research may change this information. If you have questions about a medical condition, always talkwith your health care provider. ? 2013 [employer] ([employer]). All rights reserved. [id number] documented in this encounter Progress Notes Radha Moreno APRN, C.N.P. - 04/23/2022 10:00 AM CDT SUBJECTIVE CHIEF COMPLAINT / REASON FOR VISIT Carrie is a 21 y.o. female who presents for evaluation of Gynecologic Exam. HISTORY OF PRESENT ILLNESS #1 Pap Smear Examination G0 female present to the clinic for pap smear exam. She understands the reason for the testing. She is in a relationship with one female partner. Denies previous sexual encounter with male partners.Denies concerns for sexually transmitted disease. No breast or vaginal concerns reported. LMP 04/17/2022. Lasts for 6-7 days. Monthly. #2 Asthma Mild Intermittent (HCC) Known history of intermittent asthma. Controlled with current therapies. OBJECTIVE PHYSICAL EXAM BP 111/70 Pulse 83 Ht 162 cm Wt 48.8 kg LMP 04/17/2022 BMI 18.59 kg/m?? Vitals and nursing note reviewed. Constitutional General: She is not in acute distress. Appearance: Normal appearance. She is well-developed, well-groomed and normal weight. She is not ill-appearing. Interventions: Face mask in place. HENT Head: Normocephalic and atraumatic. Right Ear: Tympanic membrane, ear canal and external ear normal. There is no impacted cerumen. Left Ear: Tympanic membrane, ear canal and external ear normal. Nose: Nose normal. No congestion. Mouth/Throat: Mouth: Mucous membranes are moist. Dentition: Normal dentition. Pharynx: Oropharynx is clear. Uvula midline. Eyes Extraocular Movements: Extraocular movements intact. Pupils: Pupils are equal, round, and reactive to light. Neck Thyroid: No thyromegaly. Cardiovascular Rate and Rhythm: Normal rate and regular rhythm. No extrasystoles are present. Pulses: Normal pulses. Heart sounds: Normal heart sounds, S1 normal and S2 normal. No murmur heard. Pulmonary Effort: Pulmonary effort is normal. Breath sounds: Normal breath sounds. Chest Breasts: Breasts are symmetrical. Right: Inverted nipple present. No nipple discharge, tenderness, axillary adenopathy or supraclavicular adenopathy. Left: Normal. No inverted nipple, nipple discharge, tenderness, axillary adenopathy or supraclavicular adenopathy. Abdominal General: Abdomen is flat. Bowel sounds are normal. Palpations: Abdomen is soft. There is no splenomegaly or mass. Tenderness: There is no abdominal tenderness. There is no guarding or rebound. Genitourinary General: Normal vulva. Exam position: Supine. Vagina: Normal. No vaginal discharge. Comments: Pap smear obtained with ThinPrep brush. Patient reports some discomfort with small speculum use. Cervix clear, nulliparous. Vaginal mucosa normal. Musculoskeletal General: Normal range of motion. Cervical back: Normal range of motion and neck supple. Right lower leg: No edema. Left lower leg: No edema. Lymphadenopathy Cervical: No cervical adenopathy. Upper Body: Right upper body: No supraclavicular or axillary adenopathy. Left upper body: No supraclavicular or axillary adenopathy. Skin General: Skin is warm. Capillary Refill: Capillary refill takes less than 2 seconds. Findings: No rash. Neurological General: No focal deficit present. Mental Status: She is alert and oriented to person, place, and time. Cranial Nerves: No cranial nerve deficit. Psychiatric Behavior: Behavior normal. Behavior is cooperative. Thought Content: Thought content normal. Judgment: Judgment normal. ASSESSMENT / PLAN #1 Pap Smear Examination Completed. If normal, next due in 3 years. #2 Asthma Mild Persistent Maintain current treatment plan. 30 minutes in care of the patient today. Time includes both non face to face and face to face patient care. documented in this encounter Plan of Treatment Not on filedocumented as of this encounter Procedures Procedure Name Priority Date/Time Associated Diagnosis Comme nts THINPREP SCREEN HPV Routine 04/23/2022 10:25 AM Pap Smear R esults for this REFLEX CDT Examination procedure are i n the results section. documented in this encounter Results ThinPrep Screen HPV Reflex (04/23/2022 10:25 [...] is no t available. Radha Moreno APRN C.N.PSanti LAB PAP PATHDX ORDERABLE S Performing Organization Address City/State/[facility] Code Phon e Number [facility] - [address] [place] [address] [address] [facility] [place] [place] [address] Laboratories-[facility] 200 [facility] documented in this encounter Visit Diagnoses Diagnosis Pap Smear Examination - Primary Asthma Mild Persistent (HCC) documented in this encounter Additional Health Concerns Assessment Noted Time PHQ-9 Depression Total Score: 2 05/22/2020 7:40 AM CDT documented as of this encounter Care Teams B And B Gang Worker Relationship Specialty Start Date End Date Mian Goode M.D. PCP - General Family Medicine 10/28/06 [address] [place] [address] documented as of this encounter
--- OUTSIDE RECORDS SUMMARY | 2022-10-05 20:29 | XMS_ITS | Encounter Summary ---
:2000 Author Organization [facility] Address [address] [place] [address] Care Team Providers Name Role Phone Mian Goode M.D. Primary Care Provider Encounter Details Date Type Department Care Team Description 12/01/2020 Admin Visit Department of Family Medicine, [address] in [address] [address] Social History Tobacco Use Types Packs/Day Years [...] or relatives? How often do you attend jew or 1 to 4 times per year 04/01 roman catholic services? Do you belong to any clubs or Yes 04/19/2022 organizations such as jew groups, unions, fraternal or athletic groups, or [...] COVID19 Pending 12/01/2020 12/01/2020 12/02/2020 4:33 PM RADIO MECHANIC HELPER Assessment Noted Time PHQ-9 Depression Total Score: 2 05/22/2020 7:40 AM CDT documented as of this encounter Care Teams Towboat Pilot Relationship Specialty Start Date End Date Mian Goode M.D. PCP - General Family Medicine 10/28/06 [address] [place] [address] documented as of this encounter
--- OUTSIDE RECORDS SUMMARY | 2022-10-05 20:29 | XMS_ITS | Encounter Summary ---
:2000 Author Organization [facility] Address [address] [place] [address] Care Team Providers Name Role Phone Mian Goode M.D. Primary Care Provider Reason for Visit Reason Comments Med Refill Encounter Details Date Type Department Care Team Description 07/09/2021 Refill Department of Family Medicine, Mian Eden M.D. Med Refill [facility], [address] [facility] [address] [place] [address] [facility] in [facility] [phone] [facility] (Work) [place] [address] [place] [address] Social History Tobacco Use [...] or relatives? How often do you attend christian or 1 to 4 times per year 04/01 mandaeism services? Do you belong to any clubs or Yes 04/19/2022 organizations such as christian groups, unions, fraternal or athletic groups, or [...] place to sleep or slept in a prison (including now)? Education Answer Date Recorded What is the highest level of school you have Some college, n o degree 03/17/2020 completed or the highest degree you have received? Sex Assigned at Date Recorded Female 02/10/2022 1:42 PM CDT documented as of this encounter Miscellaneous Notes Telephone Encounter - Tawana Baron - 07/10/2021 12:45 PM CDT Nurse review: Unable to forward request to provider; Controlled Substance Primary Provider: Mian Goode M.D. Requested Prescriptions Pending Prescriptions Disp Refills ??? Ventolin HFA 90 mcg/actuation inhaler [Pharmacy Med Name: VENTOLIN HFA (ALBUTEROL) 108MCG/ACT AERS] 18 g 5 Sig: INHALE 2 PUFFS BY MOUTH EVERY FOUR HOURS NEEDED FOR WHEEZING OR SHORTNESS OF BREATH ??? montelukast (SINGULAIR) 10 mg tablet [Pharmacy Med Name: MONTELUKAST SODIUM 10MG TABS] 90 tablet3 Sig: TAKE 1 TABLET BY MOUTH AT BEDTIME DURING ALLERGY SEASON ??? methylphenidate HCl (RITALIN) 10 mg tablet [Pharmacy Med Name: METHYLPHENIDATE HCL 10MG TABS] 168 tablet 0 Sig: TAKE 1 TABLET BY MOUTH TWO TIMES A DAY [facility] documented in this encounter Plan of Treatment Not on filedocumented as of this encounter Visit Diagnoses Not on filedocumented in this encounter Additional Health Concerns Assessment Noted Time PHQ-9 Depression Total Score: 2 05/22/2020 7:40 AM CDT documented as of this encounter Care Teams Executive Creative Director Relationship Specialty Start Date End Date Mian Goode M.D. PCP - General Family Medicine 10/28/06 [address] [place] [phone] documented as of this encounter
--- OUTSIDE RECORDS SUMMARY | 2022-10-05 20:29 | XMS_ITS | Encounter Summary ---
:2000 Author Organization [facility] Address [address] [place] [address] Care Team Providers Name Role Phone Mian Goode M.D. Primary Care Provider Reason for Visit Reason Comments Depression Encounter Details Date Type Department Care Team Description 07/15/2022 Nurse Triage Department of Family [facility]uman [facility], [facility], [address] [place] [address] Professional Building in [place], [place] [phone] [address] [facility] [address] [place] [address] Social History Tobacco Use Types Packs/Day [...] or relatives? How often do you attend caodaism or 1 to 4 times per year 04/01 muslim services? Do you belong to any clubs or Yes 04/19/2022 organizations such as caodaism groups, unions, fraternal or athletic groups, or [...] this encounter Miscellaneous Notes Telephone Encounter - Pauline Bauman R.N. - 07/15/2022 7:16 AM CDT Chief Complaint / Reason for Call Patient is a 21 y.o. female calling regarding Depression. Assessment Concern: Patient reports worsening symptoms of depression and thoughts of suicide. Patient reports that she started taking Paxil on 07/04/22 and stopped taking the medication yesterday as she feels it ismaking her depression worse and she is having more thoughts of suicide. Patient denies any plan for self harm at this time. Present for: ongoing, worse in the past few days Home cares tried: Taking Paxil until 07/14/22 Calling to request: Recommendation. The recommended disposition is Go to ED Now. Patient agrees to having her partner drive her to the [place] emergency department now. Advised patient to call 911 at any time if she feels she needs immediate assistance or feels unsafe. Patient verbalizes understanding and is in agreement with reporting to the local emergency department. Reason for Disposition [1] Depression symptoms (sadness, hopelessness, decreased energy) AND [2] unable to do any normal activities (e.g., self care, school, work; in comparison to baseline). Protocols used: Suicide [id number] Care Advice Patient/Caregiver understands and will follow care advice?: Yes, able to teach back GO TO ED NOW: * You need to be seen in the Emergency Department. * Leave now. Drive carefully. documented in this encounter Plan of Treatment Not on filedocumented as of this encounter Visit Diagnoses Not on filedocumented in this encounter Additional Health Concerns Assessment Noted Time PHQ-9 Depression Total Score: 19 07/15/2022 7:17 AM CD T documented as of this encounter Care Teams Apple Sorter Relationship Specialty Start Date End Date Mian Goode M.D. PCP - General Family Medicine 10/28/06 [address] [place] [address] documented as of this encounter
--- OUTSIDE RECORDS SUMMARY | 2022-10-05 20:29 | XMS_ITS | Encounter Summary ---
:2000 Author Organization [facility] Address [address] [place] [address] Care Team Providers Name Role Phone Mian Goode M.D. Primary Care Provider Reason for Visit Reason Onset Date Comments Testing For Upper Respiratory Virus Symptoms 07/18/2021 Encounter Details Date Type Department Care Team Description 07/18/2021 External Outreach Department of Family Post, Davin Narayanan, Contact With And Medicine, [place] [address] (Suspected) Exposure [address] Professional [address] [facility] To [place] [address] (Primary Building in [place], [place] Dx) [place] [address] [address] [facility] [phone] [place], [place] (Work) [address] Social History Tobacco Use [...] 1 to 4 times per year 04/01 adventist services? Do you belong to any clubs [...] place to sleep or slept in a fci (including now)? Education Answer Date Recorded What is the highest level of school you have Some college, n o degree 03/17/2020 completed or the highest degree you have received? Sex Assigned at Date Recorded Female 02/10/2022 1:42 PM CDT documented as of this encounter Progress Notes Elba Ngo R.N. - 07/18/2021 2:34 PM CDT Encounter created for symptomatic infectious disease screening with possible COVID, Influenza, RSV, and/or Group A Strep testing. documented in this encounter Plan of Treatment Not on filedocumented as of this encounter Procedures Procedure Name Priority Date/Time Associated Comments Diagnosis SARS CORONAVIRUS 2 Routine 07/18/2021 3:55 PM Contact With And Results for this PCR DETECT, V CDT (Suspected) procedure are in Exposure To the results COVID-19 section. documented in this encounter Results SARS Coronavirus 2 PCR Detect, V Symptomatic (07/18/2021 3:55 PM CDT) [facility] Method Time Signature SARS-CoV-2 Swab, 07/19/2021 [facility] Specimen Nasopharynx 11:26 AM Source CDT SARS-CoV-2 Undetected Undetected 07/19/2021 [facility] RNA by PCR 11:26 AM CDT Comment: [...] using the yuri SARS-Co V-2 assay ([employer] performed on the yuri 6800/8800 S ystem has received Emergency Use Authorization (EUA) by the U.S. Food and Drug Administration, and is modified from the serologist's instructions wit h a bridging study. Performance characteristics were verified by [facility] inic in a manner consistent with CLIA requirements. Fact sheets for this Emergency Use Autho rization (EUA) assay can be found at the following links: For Healthcare Providers: https://www.[employer] a.gov/media/720281/download For Patients: https://www.fda.gov/media/ 785987/download Specimen Anatomical Collection Method Collection Time Receive d Time (Source) Location / / Volume Laterality Varies 07/18/2021 3:55 PM 7:29 (Nasopharynx) CDT PM CDT Davin Galo M.D. LAB MICROBIOLOGY - GENERAL O RDERABLES Performing Organization Address City/State/ZIP Code Phon e Number [facility] [address] [place] [address] SUPPORT [facility] [place] [address] Laboratory Medicine and Pathology [address] [place] documented in this encounter Visit Diagnoses Diagnosis Contact With And (Suspected) Exposure To COVID-19 - Primary documented in this encounter Additional Health Concerns Infection Onset Date Last Indicated Resolved Time COVID19 Pending 07/18/2021 07/18/2021 07/19/2021 11:26 AM CDT Assessment Noted Time PHQ-9 Depression Total Score: 2 05/22/2020 7:40 AM CDT documented as of this encounter Care Teams Coupling Machine Operator Relationship Specialty Start Date End Date Mian Goode M.D. PCP - General Family Medicine 10/28/[address] [place] [address] documented as of this encounter
--- OUTSIDE RECORDS SUMMARY | 2022-10-05 20:29 | XMS_ITS | Encounter Summary ---
:2000 Author Organization [facility] Address [address] [place] [address] Care Team Providers Name Role Phone Mian Goode M.D. Primary Care Provider Reason for Visit Reason Comments Med Refill Encounter Details Date Type Department Care Team Description 07/11/2020 Refill [facility] Mian White M.D. Med Refill Pharmacy [address] [facility] [address] [place] [address] [place], [place] [address] [phone] Social History Tobacco Use Types Packs/Day Years [...] or relatives? How often do you attend congregational or 1 to 4 times per year 04/01 cheondoism services? Do you belong to any clubs or Yes 04/19/2022 organizations such as congregational groups, unions, fraternal or athletic groups, or [...] place to sleep or slept in a long term (including now)? Education Answer Date Recorded What [...] documented as of this encounter Care Teams Supervisor [employer] Relationship Specialty Start Date End Date Mian Goode M.D. PCP - General Family Medicine 10/28/06 [address] [place] [address] documented as of this encounter
--- OUTSIDE RECORDS SUMMARY | 2022-10-05 20:29 | XMS_ITS | Encounter Summary ---
:2000 Author Organization [facility] Address [address] [place] [address] Care Team Providers Name Role Phone Mian Goode M.D. Primary Care Provider Encounter Details Date Type Department Care Team Description 03/27/2021 Immunization Department of [facility] For COVID-19 Medicine, [facility] Vaccin e Immunization Clinic [address] in [place] [address] [place] [address] Social History Tobacco Use [...] place to sleep or slept in a custodial (including now)? Education Answer Date Recorded What is the highest level of school you have Some college, n o degree 03/17/2020 completed or the highest degree you have received? Sex Assigned at Date Recorded Female 02/10/2022 1:42 PM CDT documented as of this encounter Plan of Treatment Not on filedocumented as of this encounter Visit Diagnoses Diagnosis Encounter For COVID-19 Vaccine Immunizat ion documented in this encounter Additional Health Concerns Assessment Noted Time PHQ-9 Depression Total Score: 2 05/22/2020 7:40 AM CDT documented as of this encounter Care Teams Associate Publisher Relationship Specialty Start Date End Date Mian Goode M.D. PCP - General Family Medicine 10/28/06 [address] [place] [address] documented as of this encounter
--- OUTSIDE RECORDS SUMMARY | 2022-10-05 20:29 | XMS_ITS | Encounter Summary ---
:2000 Author Organization [facility] Address [address] [place] [address] Care Team Providers Name Role Phone Mian Goode M.D. Primary Care Provider Reason for Visit Reason Comments Med Refill Encounter Details Date Type Department Care Team Description 04/17/2020 Refill Department of Family Medicine, B Mian lopez M.D. Med Refill [facility], [address] [facility] [address] [place] [address] [facility] in [facility] [address] [place] [address] Social History Tobacco Use [...] or relatives? How often do you attend religion or 1 to 4 times per year 04/01 restoration services? Do you belong to any clubs or Yes 04/19/2022 organizations such as religion groups, unions, fraternal or athletic groups, or [...] place to sleep or slept in a half-way (including now)? Education Answer Date Recorded What is the highest level of school you have Some college, n o degree 03/17/2020 completed or the highest degree you have received? Sex Assigned at Date Recorded Female 02/10/2022 1:42 PM CDT documented as of this encounter Miscellaneous Notes Telephone Encounter - Josy Layton L.P.N. - 04/18/2020 9:58 AM CDT The patient is requesting a renewal of methylphenidate ER and methylphenidate (Ritalin) per Mian Goode M.D., as outlined in their Problem List Overview for Attention Deficit Disorder Combined Type. The renewal is pended. There are no nursing concerns at this time. Date of last renewal: 03/17/2020 Urine screening not indicated as part of the prescribing plan. May be completed at random as needed Next provider visit due: 03/17/2021 PDMP needs to be reviewed and documented by provider. Please route this back to nursing once complete. Telephone Encounter - Sharon Estrada - 04/17/2020 4:10 PM CDT Nurse review: Unable to forward request to provider; CS Primary Provider: Mian Goode M.D. documented in this encounter Plan of Treatment Not on filedocumented as of this encounter Visit Diagnoses Not on filedocumented in this encounter Additional Health Concerns Infection Onset Date Last Indicated Resolved Time COVID19 Pending 04/29/2020 04/29/2020 04/30/2020 7:00 AM CDT Assessment Noted Time PHQ-9 Depression Total Score: 9 01/31/2017 12:01 AM CS T documented as of this encounter Care Teams Fusing Machine Operator Relationship Specialty Start Date End Date Mian Goode M.D. PCP - General Family Medicine 10/28/06 [address] [place] [address] documented as of this encounter
--- OUTSIDE RECORDS SUMMARY | 2022-10-05 20:29 | XMS_ITS | Encounter Summary ---
:2000 Author Organization [facility] Address [address] [place] [address] Care Team Providers Name Role Phone Mian Goode M.D. Primary Care Provider Reason for Referral Outpatient (Routine) - Authorized Specialty Diagnoses / Procedures Referred By Contact Refer red To Contact [facility] Candi Fritz [address] [place] [address] Referral ID Status Reason Start Date Expiration Date Visits V isits Requested Authorized [id number] Authorized 07/02/2022 07/02/2023 1 1 Scheduling Instructions Follow up - Anxiety/Depression ehavioral Health (Routine) - Authorized Specialty Diagnoses / Referred By Contact Referred To Contact Procedures Psychiatry / Diagnoses Depression Anxiety Javier Omer [facility] and Candi Fritz Psychology [address] [place] [address] Referral ID Status Reason Start Date Expiration Date Visits V isits Requested Authorized [id number] Authorized 07/02/2022 07/02/2023 1 1 Reason for Visit Reason Comments Anxiety Depression Encounter Details Date Type Department Care Team Description 07/02/2022 Telemedicine Department of [facility] Javier morrow Anxiety Medicine, [facility] Lam Omer, (Primary Dx) Clinic Candi Mota [address] [place] [address] in [facility] [phone] (Wo rk) [place] [address] [place] [address] Social History Tobacco Use Types Packs/Day Years Used Date Smoking Tobacco: Never Smokeless Tobacco: Never Tobacco Cessation: Counseling Given: Not Answered Alcohol Use Standard Drinks/Week Comments Yes 3 [...] or relatives? How often do you attend alevism or 1 to 4 times per year 04/01 scientologist services? Do you belong to any clubs or Yes 04/19/2022 organizations such as alevism groups, unions, fraternal or athletic groups, or [...] place to sleep or slept in a senior living (including now)? Education Answer Date Recorded What is the highest level of school you have Some college, n o degree 03/17/2020 completed or the highest degree you have received? Sex Assigned at Date Recorded Female 02/10/2022 1:42 PM CDT documented as of this encounter Progress Notes Edakkanambeth Varayil, Jithinraj, M.D. - 07/02/2022 8:00 AM CDT SUBJECTIVE CHIEF COMPLAINT / REASON FOR VISIT Anxiety and Depression HISTORY OF PRESENT ILLNESS Ms. Le is a 21 y.o. female patient with the following concerns. Consult conducted via real-time audio/video technology by Lam Omer M.D. in [facility] to the patient in home. Patient reports that she has dealt with symptoms of anxiety and depression all her life but in December 2021, she was diagnosed with COVID, and this exacerbated some of her symptoms. Patient reports that she had significant heartburn, other multiple lingering symptoms for about 4 months, and in this process, she lost weight, and was unable to sleep and this exacerbated her anxiety and depression. Patient reports that she had a really terrible 4 months. Patient however reports that the symptoms haveimproved and now she is starting to gain her weight back. Patient however feels like she is unable to enjoy things that she previously used to, is unable to sleep well, lacks energy, and feels overwhelmed at times. Patient also reports that previous semester had been very hectic, and a combination of both her underlying physical ailment with COVID-19, and the stress at school has made her more anxious. Patient also reports that she has had passive thoughts of feeling better being . Patient reports that these are very passive thoughts, she has never acted upon any of these thoughts. Patient alsoreports that she has no specific plans, has never attempted suicide in the past. Patient reports that her family support is very good and she will not do that to her family. Patient reports that duringthe school year, she did see behavioral health counseling and was also prescribed hydroxyzine as needed to manage his symptoms of anxiety. Reports that she went for a couple of sessions of cognitive behavioral therapy, and was starting to develop some coping skills before the school ended. She did notappreciate hydroxyzine very well because it made her very dizzy and drowsy and more sleepy. Patient also reports that she was diagnosed with ADHD when she was about 6 years of age, and she hasbeen on Ritalin. In the past she was on extended release Ritalin, and this caused her more symptoms and recently she has been on immediate release 10 mg tablets which seems to have been working very well for her. Over the last 1 week, she has stopped taking this medication, because she felt like the medication was causing her to have brain fog and also felt like her anxiety was getting worse. 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 This also causes her to be stressed out to have the performance that she would like. Patient reports significant family history of anxiety and depression both in her grandparent who waspreviously prescribed Paxil and lorazepam. Patient also reports history of depression in her mother, who was prescribed Prozac. Patient reports that her mother did not tolerate Prozac at all. The following portions of the patient's history were reviewed and updated as appropriate: allergies,current medications, family history, medical history, social history, surgical history and problem list. REVIEW OF SYSTEMS Review of systems is negative other than listed in history of present illness. OBJECTIVE PHYSICAL EXAM There were no vitals taken for this visit. General: Well appearing. In no acute distress. Psychiatric Attention and Perception: Attention and perception normal. Mood and Affect: Affect normal. Mood is anxious. Affect is not flat, angry or tearful. Speech: Speech normal. Speech is not delayed or slurred. Behavior: Behavior is not aggressive, withdrawn or hyperactive. Behavior is cooperative. Thought Content: Thought content normal. Thought content does not include homicidal or suicidal ideation. Thought content does not include homicidal or suicidal plan. Cognition and Memory: Cognition and memory normal. Judgment: Judgment normal. ASSESSMENT / PLAN #1 Depression Anxiety Patient scored 14 points on PHQ-9, she scored 17 points on trini 7. She does have passive suicidal ideations, but has never had any plans, has never acted upon these ideations. Patient reports having a partner who is very helpful, she also reports very good family support. We discussed in details various options for management of her anxiety and depression including pharmacological management and also importance of behavioral health counseling. We discussed in detail various techniques such as breathing exercises, meditation, yoga, physical activity. Given that patient has and father has had good success with Paxil, patient would like to start this medication. Have discussed various side effects andadverse effects associated with the medication in great detail with the patient. I have also sent detailed information regarding this to the patient via portal. Medication sent to the pharmacy on file, we have also placed a referral for the patient to be seen by behavioral health for cognitive behavioral therapy. Will follow-up with patient in 1 month Call/video time start: 8:10 am Call/video time finish: 8: 40 am Total time: 30 min spent in direct discussion, counseling, and/or coordination of care PATIENT EDUCATION: Ready to learn, no apparent learning barriers were identified; learning preferences include listening. Explained diagnosis and treatment plan; patient expressed understanding of the content. documented in this encounter Plan of Treatment Scheduled Referrals Name Type Priority Associated Order Schedule Diagnoses Psychiatry and Outpatient Referral Routine Depression Anxiety Expected: Psychology - 07/02/2022 Integrated (Approximate), behavioral health Expires: consult (clinic) 10/02/2023 Family Medicine Outpatient Referral Routine Expec napoleon: office visit 08/01/2022, (clinic) Expires: 10/02/2023 documented as of this encounter Visit Diagnoses Diagnosis Depression Anxiety - Primary documented in this encounter Additional Health Concerns Assessment Noted Time PHQ-9 Depression Total Score: 14 07/01/2022 7:14 PM CD T documented as of this encounter Care Teams Slip Seat Coverer Relationship Specialty Start Date End Date Mian Goode M.D. PCP - General Family Medicine 10/28/06 [address] [place] [address] documented as of this encounter
--- OUTSIDE RECORDS SUMMARY | 2022-10-05 20:29 | XMS_ITS | Encounter Summary ---
:2000 Author Organization [facility] Address [address] [place] [address] Care Team Providers Name Role Phone Mian Goode M.D. Primary Care Provider Reason for Visit Reason Comments ADHD CSA follow-up Encounter Details Date Type Department Care Team Description 12/24/2021 Telemedicine Department of [facility] Mian Goode Att ention Deficit Disorder Combined Type (Primary Dx); Medicine, [facility] Asthma Mild Intermittent (HCC); Clinic [place], Allergy Seasonal Street Professional [facility] in [address] [phone] (Work) [place], [place] [phone] [address] (Fax) [phone] Social History Tobacco Use Types Packs/Day Years [...] 1 to 4 times per year 04/01 baptism services? Do you belong to any clubs [...] encounter Progress Notes Mian Goode M.D. - 12/24/2021 2:00 PM CST SUBJECTIVE CHIEF COMPLAINT / REASON FOR VISIT Carrie Le is a 21 y.o. female who presents for evaluation of ADHD (CSA follow-up). HISTORY OF PRESENT ILLNESS This is a video visit for CSA follow-up. She has ADHD and takes Ritalin 10 mg each morning and another 10 mg in the afternoon on most days. This continues to work very well for her without side effects. No difficulty sleeping at night. It helps with focus and concentration. School is going well. 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 Her asthma remains well controlled on Singulair 10 mg daily. She has albuterol inhaler to use as needed. She takes Lizbet and Flonase during allergy season which is spring and fall. She is due for her first Pap test and she prefers to see one of my female colleagues for this so shewill contact the clinic to schedule. Current Outpatient Medications on File Prior to Visit Medication Sig Dispense Refill ??? albuterol 90 mcg/actuation inhaler Inhale 2 puffs every 4 (four) hours as needed for wheezing orshortness of breath. 8.5 g 5 ??? cetirizine (ZyrTEC) 10 mg tablet Take 10 mg by mouth daily as needed. ??? ibuprofen (ADVIL,MOTRIN) 200 mg tablet Take 2 tablets by mouth every 6 (six) hours as needed forpain. ??? methylphenidate HCl (RITALIN) 10 mg tablet TAKE 1 TABLET BY MOUTH TWO TIMES A DAY 168 tablet 0 ??? montelukast (SINGULAIR) 10 mg tablet TAKE 1 TABLET BY MOUTH AT BEDTIME DURING ALLERGY SEASON 90 tablet 3 No current facility-administered medications on file prior to visit. Consult conducted via real-time audio/video technology by Mian Goode M.D. in [facility] to the patient in Patient's Home The following portions of the patient's history were reviewed and updated as appropriate: allergies,current medications, family history, medical history, social history, surgical history and problem list. OBJECTIVE PHYSICAL EXAM Physical Exam Limited physical exam was performed via video. General: Awake alert in no acute distress. ASSESSMENT / PLAN #1 Attention Deficit Disorder Combined Type CSA was reviewed and I will not make any changes to it. She will continue on Ritalin 10 mg twice daily as needed. #2 Asthma Mild Intermittent (HCC) Asthma is well controlled. She will continue on Singulair 10 mg daily and use albuterol inhaler as needed. #3 Allergy Seasonal She may continue to use an OTC antihistamine and Flonase nasal spray during allergy season. Total time was 10 minutes. CAR PAINTER/SANDBLASTER documented in this encounter Plan of Treatment Not on filedocumented as of this encounter Visit Diagnoses Diagnosis Attention Deficit Disorder Combined Type - Primary Asthma Mild Intermittent (HCC) Allergy Seasonal documented in this encounter Additional Health Concerns Assessment Noted Time PHQ-9 Depression Total Score: 2 05/22/2020 7:40 AM CDT documented as of this encounter Care Teams Health Outreach Worker Relationship Specialty Start Date End Date Mian Goode M.D. PCP - General Family Medicine 10/28/06 [address] [place] [address] documented as of this encounter
--- OUTSIDE RECORDS SUMMARY | 2022-10-05 20:29 | XMS_ITS | Encounter Summary ---
:2000 Author Organization [facility] Address [address] [place] [address] Care Team Providers Name Role Phone Mian Goode M.D. Primary Care Provider Encounter Details Date Type Department Care Team Description 11/30/2020 Patient Self-Triage CONNECTED CARE Symptom Medical Receptionist Assistant, Provider Social History Tobacco Use Types Packs/Day [...] or relatives? How often do you attend catholic or 1 to 4 times per year 04/01 mu-ism services? Do you belong to any clubs or Yes 04/19/2022 organizations such as catholic groups, unions, fraternal or athletic groups, or [...] documented as of this encounter Care Teams General Road Supervisor Relationship Specialty Start Date End Date Mian Goode M.D. PCP - General Family Medicine 10/28/06 [address] [place] [address] documented as of this encounter
--- OUTSIDE RECORDS SUMMARY | 2022-10-05 20:29 | XMS_ITS | Encounter Summary ---
:2000 Author Organization [facility] Address [address] [place] [address] Care Team Providers Name Role Phone Mian Goode M.D. Primary Care Provider Reason for Visit Reason Comments Med Refill Encounter Details Date Type Department Care Team Description 09/04/2020 Refill Department of Family Medicine, B Mian lopez M.D. Med Refill [facility], [address] [facility] [address] [place] [address] [facility] in [facility] [place] [address] [place] [address] Social History Tobacco Use [...] 1 to 4 times per year 04/01 anabaptism services? Do you belong to any clubs [...] Miscellaneous Notes Telephone Encounter - Parisa Olivo L.P.NSanti - 09/07/2020 9:14 AM CDT The patient is requesting a renewal of Ritalin 10 mg , per Mian Goode M.D., as outlined in their Problem List Overview for ADD. The renewal is pended. There are no nursing concerns at this time. Last filled: 07/11/20 Urine Drug Screening: Is not required by the prescribing provider plan in Problem List Overview. Screening/Assessments due: None due at this time. Next Provider Visit due: 03/2021 Reminder for prescribing provider to review and document New Reading of PDMP Please [facility] Rx Renewal in basket pool for any questions & wrap up. Telephone Encounter - Magdalena Wilson - 09/05/2020 10:53 AM CDT Nurse review: Unable to forward request to provider; [facility] Primary Provider: Mian Goode M.D. documented in this encounter Plan of Treatment Not on filedocumented as of this encounter Visit Diagnoses Not on filedocumented in this encounter Additional Health Concerns Assessment Noted Time PHQ-9 Depression Total Score: 2 05/22/2020 7:40 AM CDT documented as of this encounter Care Teams Research Intern Relationship Specialty Start Date End Date Mian Goode M.D. PCP - General Family Medicine 10/28/06 [address] [place] [address] documented as of this encounter
--- OUTSIDE RECORDS SUMMARY | 2022-10-05 20:30 | XMS_ITS | Encounter Summary ---
:2000 Author Organization [facility] Address [address] [place] [address] Care Team Providers Name Role Phone Mian Goode M.D. Primary Care Provider Encounter Details Date Type Department Care Team Description 01/03/2017 - 01/10/2017 Hospital Encounter HX NO MAPPING Social History Tobacco Use Types Packs/Day Years [...] or relatives? How often do you attend anglican or 1 to 4 times per year 04/01 lutheran services? Do you belong to any clubs or Yes 04/19/2022 organizations such as anglican groups, unions, fraternal or athletic groups, or [...] or slept in a fci (including now)? Sex Assigned at Date Recorded Female 02/10/2022 1:42 PM CDT documented as of this encounter Last Filed Vital Signs Vital Sign Reading Time Taken Comments Blood Pressure - - Pulse - - Temperature - - Respiratory Rate - - Oxygen Saturation - - Inhaled Oxygen Concentration - - Weight 50.7 kg (111 lb 12.4 oz) 01/03/2017 4:05 PM REVIEW SPECIALIST Height 161.8 cm (5' 3.7) 01/03/2017 4:05 PM REVIEW SPECIALIST Body Mass Index 19.37 01/03/2017 4:05 PM REVIEW SPECIALIST Body Mass Index Percentile 33.74 % 01/03/2017 4:05 PM CS T Growth Chart: [facility] (Girls, 2-20 Years) documented in this encounter Medications at Time of Discharge Medication Sig Dispensed Refills Start Date End Date ibuprofen (ADVIL,MOTRIN) Take 2 tablets by 0 01/2013 200 mg tablet mouth every 6 (six) hours as needed for pain. albuterol (for_PROVENTIL Inhale 2 puffs 0 016 09/29/2018 HFA,VENTOLIN HFA) 90 every 4 (four) mcg/actuation inhaler hours as needed. methylphenidate HCl Take 1 tablet by 0 11/05/2016 05/17/2019 (for_METADATE ER) 20 mg ER mouth every tablet morning. MULTIVITAMIN ORAL Take 1 tablet by 0 2008 0 03/17/2020 mouth daily. documented as of this encounter Plan of Treatment Not on filedocumented as of this encounter Visit Diagnoses Not on filedocumented in this encounter Additional Health Concerns Assessment Noted Time PHQ-9 Depression Total Score: 3 04/11/2015 12:01 AM CD T documented as of this encounter Care Teams Family Nurse Relationship Specialty Start Date End Date Mian Goode M.D. PCP - General Family Medicine 10/28/06 [address] [place] [address] documented as of this encounter
--- OUTSIDE RECORDS SUMMARY | 2022-10-05 20:30 | XMS_ITS | Encounter Summary ---
:[address] [facility] Address [address] [place] [address] Care Team Providers Name Role Phone Mian Goode M.D. Primary Care Provider Encounter Details Date Type Department Care Team Description 11/17/2019 Hospital Encounter Department of [facility] Research Laboratory Medicine Candi Exam and Pathology, [address] [facility] in [place], [place] [address] [place] [address] [place], [place] (Work) [phone] Social History Tobacco Use Types Packs/Day Years [...] 1 to 4 times per year 04/01 advent services? Do you belong to any clubs [...] place to sleep or slept in a chcf (including now)? Education Answer Date Recorded What is the highest level of school you have completed or 12 th grade 05/14/2019 the highest degree you have received? Sex Assigned at Date Recorded Female 02/10/2022 1:42 PM CDT documented as of this encounter Medications at Time of Discharge Medication Sig Dispensed Refills Start Date End Date ibuprofen (ADVIL,MOTRIN) Take 2 tablets by 0 01/2013 200 mg tablet mouth every 6 (six) hours as needed for pain. MULTIVITAMIN ORAL Take 1 tablet by 0 2008 0 03/17/2020 mouth daily. VENTOLIN HFA 90 INHALE 2 PUFFS BY 36 g 3 09/29/2018 mcg/actuation inhaler MOUTH EVERY FOUR HOURS NEEDED FOR COUGH AND/OR WHEEZE documented as of this encounter Plan of Treatment Not on filedocumented as of this encounter Procedures Procedure Name Priority Date/Time Associated Diagnosis Comme nts [facility] Routine 11/17/2019 9:17 AM Clinical Research Res ults for this ORDER, B MANAGER UNION Exam procedure are i n the results section. documented in this encounter Results Miscellaneous Research, B (11/17/2019 9:17 AM MANAGER UNION) athologist Signature Number of 1 11/17/2019 [facility] Specimens 9:37 AM MANAGER UNION Specimen Anatomical Collection Method Collection Time Receive d Time (Source) Location / / Volume Laterality Varies (Blood, 11/17/2019 9:17 AM 019 9:37 Venous) MANAGER UNION AM MANAGER UNION Tian Freeman M.D. LAB RESEARCH NO RESULT SIRENA MONAE Performing Organization Address City/State/ZIP Code Phon e Number [facility] - [address] [place], [place] [address] [place] [address] [facility] [address] documented in this encounter Visit Diagnoses Diagnosis Clinical Research Exam documented in this encounter Additional Health Concerns Assessment Noted Time PHQ-9 Depression Total Score: 9 01/31/2017 12:01 AM CS T documented as of this encounter Care Teams Lithographer Helper Relationship Specialty Start Date End Date Mian Goode M.D. PCP - General Family Medicine 10/28/06 [address] [place] [address] documented as of this encounter
--- OUTSIDE RECORDS SUMMARY | 2022-10-05 20:30 | XMS_ITS | Encounter Summary ---
:[address] [facility] Address [address] [place] [address] Care Team Providers Name Role Phone Unavailable Primary Care Provider Unavailable Encounter Details Date Type Department Care Team Description 06/07/2006 Hospital Encounter HX NO MAPPING Social History [...] or relatives? How often do you attend gnosticism or 1 to 4 times per year 04/01 anabaptism services? Do you belong to any clubs or Yes 04/19/2022 organizations such as gnosticism groups, unions, fraternal or athletic groups, or [...] slept in a senior living (including now)? Sex Assigned at Date Recorded Female 02/10/2022 1:42 PM CDT documented as of this encounter Plan of Treatment Not on filedocumented as of this encounter Visit Diagnoses Not on filedocumented in this encounter
--- OUTSIDE RECORDS SUMMARY | 2022-10-05 20:30 | XMS_ITS | Encounter Summary ---
:2000 Author Organization [facility] Address [address] [place] [address] Care Team Providers Name Role Phone Mian Goode M.D. Primary Care Provider Encounter Details Date Type Department Care Team Description 05/19/2019 Orders Only [facility] Radha Owens Clinical Research Exam Pediatric and [address] [place] [address] (Primary Dx) Adolescent Medicine, [place] [address] [place], [place] [phone] [place] [address] (Work) [place] [address] Social History Tobacco Use Types Packs/Day [...] or relatives? How often do you attend pentecostalism or 1 to 4 times per year 04/01 restorationism services? Do you belong to any clubs or Yes 04/19/2022 organizations such as pentecostalism groups, unions, fraternal or athletic groups, or [...] of this encounter Plan of Treatment Scheduled Orders Name Type Priority Associated Diagnoses Order S chedule Miscellaneous Research, B Lab Routine Clinical Resear ch Exam Expected: 06/08/2019 (Approximate), Expires: 2021 Miscellaneous Research, B Lab Routine Clinical Resear ch Exam Expected: 06/08/2019 (Approximate), Expires: 2021 documented as of this encounter Visit Diagnoses Diagnosis Clinical Research Exam - Primary documented in this encounter Additional Health Concerns Assessment Noted Time PHQ-9 Depression Total Score: 9 01/31/2017 12:01 AM CS T documented as of this encounter Care Teams Profiler Operator Relationship Specialty Start Date End Date Mian Goode M.D. PCP - General Family Medicine 10/28/06 [address] [place] [address] documented as of this encounter
--- OUTSIDE RECORDS SUMMARY | 2022-10-05 20:30 | XMS_ITS | Encounter Summary ---
:2000 Author Organization [facility] Address [address] [place] [address] Care Team Providers Name Role Phone Mian Goode M.D. Primary Care Provider Encounter Details Date Type Department Care Team Description 06/08/2019 Hospital Encounter Department of [facility], Clinic al Research Laboratory Medicine [facility] Exam and Pathology, [address] [place] [address] in [place], [place] [address] [place] [address] [place], [place] (Work[place] [address] [phone] Social History Tobacco Use Types Packs/Day Years [...] or relatives? How often do you attend mu-ism or 1 to 4 times per year 04/01 holiness services? Do you belong to any clubs or Yes 04/19/2022 organizations such as mu-ism groups, unions, fraternal or athletic groups, or [...] B Lab Routine Clinical Resear ch Exam Once for 1 Occurrences starting 2018 until 9 Miscellaneous Research, B Lab Routine Clinical Resear ch Exam Once for 1 Occurrences starting 2018 until 9 documented as of this encounter Visit Diagnoses Diagnosis Clinical Research Exam documented in this encounter Additional Health Concerns Assessment Noted Time PHQ-9 Depression Total Score: 9 01/31/2017 12:01 AM CS T documented as of this encounter Care Teams Bleacher [employer] Relationship Specialty Start Date End Date Mian Goode M.D. PCP - General Family Medicine 10/28/[address] [place] [address] documented as of this encounter
--- OUTSIDE RECORDS SUMMARY | 2022-10-05 20:30 | XMS_ITS | Encounter Summary ---
:2000 Author Organization [facility] Address [address] [place] [address] Care Team Providers Name Role Phone Mian Goode M.D. Primary Care Provider Encounter Details Date Type Department Care Team Description 02/23/2018 Abstract DATA ABSTRACTION Provider, Historical Social History Tobacco Use Types Packs/Day Years Used Date Smoking Tobacco: Never Alcohol Habits Answer Date Recorded How often [...] or relatives? How often do you attend temple or 1 to 4 times per year 04/01 uatsdin services? Do you belong to any clubs or Yes 04/19/2022 organizations such as temple groups, unions, fraternal or athletic groups, or [...] or slept in a usp (including now)? Sex Assigned at Date Recorded Female 02/10/2022 1:42 PM CDT documented as of this encounter Plan of Treatment Not on filedocumented as of this encounter Visit Diagnoses Not on filedocumented in this encounter Additional Health Concerns Assessment Noted Time PHQ-9 Depression Total Score: 9 01/31/2017 12:01 AM CS T documented as of this encounter Care Teams Salesperson Fashion Accessories Relationship Specialty Start Date End Date Mian Goode M.D. PCP - General Family Medicine 10/28/06 [address] [place] [address] documented as of this encounter
--- OUTSIDE RECORDS SUMMARY | 2022-10-05 20:30 | XMS_ITS | Encounter Summary ---
:2000 Author Organization [facility] Address [address] [place] [address] Care Team Providers Name Role Phone Unavailable Primary Care Provider Unavailable Encounter Details Date Type Department Care Team Description 2000 - 2000 Hospital Encounter HX RST ROSARIO HARTMANN 3B Social History Tobacco Use Types Packs/Day Years [...] or slept in a retirement (including now)? Sex Assigned at Date Recorded Female 02/10/2022 1:42 PM CDT documented as of this encounter Plan of Treatment Not on filedocumented as of this encounter Procedures Procedure Name Priority Date/Time Associated Diagnosis Comme nts US HEAD Routine 2000 9:04 AM Resul ts for this FELT CHECKER procedure are i n the results section. US HEAD Routine 2000 12:03 PM Resu lts for this FELT CHECKER procedure are i n the results section. US HEAD Routine 2000 3:46 PM Resul ts for this FELT CHECKER procedure are i n the results section. DX CHEST PORTABLE 1 Routine 2000 6:20 AM Re sults for this VIEW FELT CHECKER procedure are i n the results section. DX CHEST AND Routine 2000 5:59 AM Re sults for this ABDOMEN PORTABLE 1 FELT CHECKER procedure are in VIEW the results section. DX INFANT CHEST AND Routine 2000 11:02 AM R esults for this ABDOMEN PORTABLE 1 FELT CHECKER procedure are in VIEW the results section. DX CHEST AND Routine 2000 6:28 AM Re sults for this ABDOMEN PORTABLE 1 FELT CHECKER procedure are in VIEW the results section. DX CHEST AND Routine 2000 3:53 PM Re sults for this ABDOMEN PORTABLE 1 FELT CHECKER procedure are in VIEW the results section. DX INFANT CHEST AND Routine 2000 3:24 PM Re sults for this ABDOMEN PORTABLE 1 FELT CHECKER procedure are in VIEW the results section. documented in this encounter Results US Head (2000 9:04 AM FELT CHECKER) Anatomical Region Laterality Modality Head N/A Ultrasound Specimen (Source) Anatomical Collection Method Collection Time Re ceived Time Location / / Volume Laterality 2000 9:04 AM FELT CHECKER Narrative 2000 1:46 PM FELT CHECKER 2000 09:04:00 ??Exam: US Cranial Pediatrics Indications: *portable* ??follow up^[id number] ORIGINAL REPORT - 2000 13:46:00 Sonogram of the head in coronal and sagi ttal projections. The intracranial contents are normal and without a structural abnormality or intraventricular hemorrhage. Normal CSF volume within the ventricul ar system with minimal increase in extra -axial fluid. Ind: 510.705 ?? Dia.120 ?? Electronically signed by: ?? Nelly Richard M.D. ??[id number] 0 13:46 Procedure Note Nelly Richard M.D. [...] Dia.120 Electronically signed by: Nelly Richard M.D. 46 2000 13:46 Ranjeet Sutherland M.D. IMG US PROCEDURES US Head (2000 12:03 PM FELT CHECKER) Anatomical Region Laterality Modality Head N/A Ultrasound Specimen (Source) Anatomical Collection Method Collection Time Re ceived Time Location / / Volume Laterality 2000 12:03 PM FELT CHECKER Narrative 2000 4:27 PM FELT CHECKER 2000 12:03:00 ??Exam: US Cranial Pediatrics Indications: f/u^portable ORIGINAL REPORT - 2000 16:27:00 No change from the prior exam on . No structural abnormality. Ventricular size is normal. No evidence of intracranial hemorrhage, extra-axial fluid collections or PVL. ? Electronic Images Only--NO FILMS Ind: 100.705 ?? Dia.120 ?? Electronically signed by: ?? Eun Buck MD. [id number] 2000 16:27 Procedure Note Eun Buck M.D. - 03/09/2018Form atting of this note might be different from the original. 2000 12:03:00 Exam: US Cranial Pe diatrics Indications: f/u^portable ORIGINAL REPORT - 2000 16:27:00 No change from the prior exam on . No structural abnormality. Ventricular size is normal. No evidence of intracranial hemorrhage, extra-axial fluid collections or PVL. Electronic Images Only--NO FILMS Ind: 100.705 Dia.120 Electronically signed by: Eun Buck MD. [id number] 2000 16:27 Alvarez Yao M.D. IMG US PROCEDURES US Head (2000 3:46 PM FELT CHECKER) Anatomical Region Laterality Modality Head N/A Ultrasound Specimen (Source) Anatomical Collection Method Collection Time Re ceived Time Location / / Volume Laterality 2000 3:46 PM FELT CHECKER Narrative 2000 4:55 PM FELT CHECKER 2000 15:46:00 ??Exam: US Cranial Pediatrics Indications: Premature (portable) ORIGINAL REPORT - 2000 16:55:00 No structural abnormality. Ventricular s ize is normal with incidental note of a cavum septum pellucidum. No evidence of intracranial hemorrhage, PVL, or extra- axial fluid collections. Ind: 100.705 ?? Dia.120 ?? Electronically signed by: ?? Eun Buck MD. [id number] 2000 16:55 Procedure Note Eun Buck M.D. - 03/09/2018Form atting of this note might be different from the original. 2000 15:46:00 Exam: US Cranial Pe diatrics Indications: Premature (portable) ORIGINAL REPORT - 2000 16:55:00 No structural abnormality. Ventricular s ize is normal with incidental note of a cavum septum pellucidum. No evidence of intracranial hemorrhage, PVL, or extra- axial fluid collections. Ind: 100.705 Dia.120 Electronically signed by: Eun Buck MD. [id number] 2000 16:55 Miles Hearn M.D. IMG US PROCEDURES DX Chest Portable 1 View (2000 6:20 AM FELT CHECKER) Anatomical Region Laterality Modality Chest N/A Radiographic Imaging Specimen (Source) Anatomical Collection Method Collection Time Re ceived Time Location / / Volume Laterality 2000 6:20 AM FELT CHECKER Narrative 2000 10:36 AM FELT CHECKER 2000 06:20:00 ??Exam: Portable-Chest Indications: AM PORT [...] gas pattern. Electronically signed by: ?? Dolores [phone] ([id number]) 0 06:43 I have reviewed the films/images [...] bowel gas pattern. Electronically signed by: Dolores [id number] ([id number]) 0 06:43 I have reviewed the films/images and agr ee with the above interpretation. Electronically signed by: Nelly Richard M.D. [id number] 10:36 Historical Provider IMG DIAGNOSTIC IMAGING PROCE DURES DX Infant Chest and Abdomen Portable 1 View (2000 5:59 AM FELT CHECKER) Anatomical Region Laterality Modality Chest, Abdomen N/A Radiographic Imaging Specimen (Source) Anatomical Collection Method Collection Time Re ceived Time Location / / Volume Laterality 2000 5:59 AM FELT CHECKER Narrative 2000 11:21 AM FELT CHECKER 2000 05:59:00 ??Exam: Peds - Chest Abdomen [...] pattern normal. Electronically signed by: Amador Jara [phone] 11:21 Alvarez Yao M.D. IMTulio DIAGNOSTIC IMAGING PROCE [facility] Infant Chest and Abdomen Portable 1 View (2000 11:02 AM [facility]) Anatomical Region Laterality Modality Chest, Abdomen N/A Radiographic Imaging Specimen (Source) Anatomical Collection Method Collection Time Re ceived Time Location / / Volume Laterality 2000 11:02 AM FELT CHECKER Narrative 2000 11:42 AM [facility] 2000 11:02:00 ??Exam: Peds - Chest Abdomen Indications: Post extubation ORIGINAL REPORT - 2000 11:42:00 Extubation since earlier exam, with gran ular changes in both lungs. Cardiac size upper limits for normal, without increase in pulmonary vascularity. UVC in unchanged position, with multiple loops of distended bowel. Electronically signed by: ?? Nelly Richard M.D. ??[phone] 0 11:42 Procedure Note Nelly Richard M.D. - 03/09/2018Formatti ng of this note might be different from the original. 2000 11:02:00 Exam: Peds - Chest Abdomen Indications: Post extubation ORIGINAL REPORT - 2000 11:42:00 Extubation since earlier exam, with gran ular changes in both lungs. Cardiac size upper limits for normal, without increase in pulmonary vascularity. UVC in unchanged position, with multiple loops of distended bowel. Electronically signed by: Nelly Richard M.D. [id number] 2000 11:42 Tian Thurman M.D. IMG DIAGNOSTIC IMAGING PROCE [facility] DX Infant Chest and Abdomen Portable 1 View (2000 6:28 AM FELT CHECKER) Anatomical Region Laterality Modality Chest, Abdomen N/A Radiographic Imaging Specimen (Source) Anatomical Collection Method Collection Time Re ceived Time Location / / Volume Laterality 2000 6:28 AM FELT CHECKER Narrative 2000 7:48 AM FELT CHECKER 2000 06:28:00 ??Exam: Peds - Chest Abdomen Indications: prematurity, intubated ORIGINAL REPORT - 2000 06:36:00 Since yesterday, the ETT has moved down to the level of the dom. Also enteric tube has been placed. The inspiration is better today. Mild bilateral perihilar infiltrates consistent with inflammation. UVC at T7. Bowel gas pattern within nor mal limits. Electronically signed by: ?? Lino Burnette ??[phone] ([id number]) 2000 06:36 I have reviewed the films/images and agr ee with the above interpretation. Electronically signed by: ?? Nelly Richard M.D. ??[phone] 0 07:48 Procedure Note Nelly Richard M.D. - 03/09/2018Formatti ng of this note might be different from the original. 2000 06:28:00 Exam: Peds - Chest Abdomen Indications: prematurity, intubated ORIGINAL REPORT - 2000 06:36:00 Since yesterday, the ETT has moved down to the level of the dom. Also enteric tube has been placed. The inspiration is better today. Mild bilateral perihilar infiltrates consistent with inflammation. UVC at T7. Bowel gas pattern within normal limits. Electronically signed by: Lino Burnette [id number] ([id number]) 2000 0 6:36 I have reviewed the films/images and agr ee with the above interpretation. Electronically signed by: Nelly Richard M.D. [phone] 07:48 Tian Thurman M.D. IMG DIAGNOSTIC IMAGING PROCE DURES DX Infant Chest and Abdomen Portable 1 View (2000 3:53 PM FELT CHECKER) Anatomical Region Laterality Modality Chest, Abdomen N/A Radiographic Imaging Specimen (Source) Anatomical Collection Method Collection Time Re ceived Time Location / / Volume Laterality 2000 3:53 PM FELT CHECKER Narrative 2000 4:18 PM FELT CHECKER 2000 15:53:00 ??Exam: Peds - Chest Abdomen Indications: ?? ORIGINAL REPORT - 2000 16:18:00 Since the exam about a half an hour ago the ETT has been withdrawn and the tip is now in good position. One of the UVCs has been removed and the other remains in the right heart. There is poor inspirati on on this film and as a result the dens ities in the lungs are more prominent. Heart size is normal. Bowel gas pattern normal. Electronically signed by: ?? Amador Jara ??[id number] 16:18 Procedure Note Lonny Jara M.D. - 03/09/2018Format ting of this note might be different from the original. 2000 15:53:00 Exam: Peds - Chest Abdomen Indications: ORIGINAL REPORT - 2000 16:18:00 Since the exam about a half an hour ago the ETT has been withdrawn and the tip is now in good position. One of the UVCs has been removed and the other remains in the right heart. There is poor inspiration on this film and as a result the densities in the cliff gs are more prominent. Heart size is normal. Bowel gas pattern normal. Electronically signed by: Amador Jara [phone] 16:18 Miles Hearn M.D. IMG DIAGNOSTIC IMAGING PROCE DURES DX Infant Chest and Abdomen Portable 1 View (2000 3:24 PM FELT CHECKER) Anatomical Region Laterality Modality Chest, Abdomen N/A Radiographic Imaging Specimen (Source) Anatomical Collection Method Collection Time Re ceived Time Location / / Volume Laterality 2000 3:24 PM FELT CHECKER Narrative 2000 3:30 PM FELT CHECKER 2000 15:24:00 ??Exam: Peds - Chest Abdomen Indications: portable. ??uac/urc placeme nt, intubated ORIGINAL REPORT - 2000 15:30:00 ETT tip is at the dom and pointing to jacobo the right main stem bronchus and should be pulled back about 1cm. There are two UVCs. The tip of one is over the right heart and the tip of the other is over the lower portion of the liver. No UACs are present. ?? Granular changes consistent with RDS in the lungs. Heart size is normal. Bowel gas pattern is normal. Electronically signed by: ?? Amador Jara ??[id number] 15:30 Procedure Note Lonny Jara M.D. - 03/09/2018Format ting of this note might be different from the original. 2000 15:24:00 Exam: Peds - Chest Abdomen Indications: portable. uac/urc placement , intubated ORIGINAL REPORT - 2000 15:30:00 ETT tip is at the dom and pointing to jacobo the right main stem bronchus and should be pulled back about 1cm. There are two UVCs. The tip of one is over the right heart and the tip of the other is over the lower portion of the liver. No UACs are present. Granular changes consistent with RDS in the lungs. Heart size is normal. Bowel gas pattern is normal. Electronically signed by: Amador Jara [phone] 15:30 Miles Hearn M.D. IMTulio DIAGNOSTIC IMAGING PROCE JANNA documented in this encounter Visit Diagnoses Not on filedocumented in this encounter
--- OUTSIDE RECORDS SUMMARY | 2022-10-05 20:30 | XMS_ITS | Encounter Summary ---
:2000 Author Organization [facility] Address [address] [place] [address] Care Team Providers Name Role Phone Unavailable Primary Care Provider Unavailable Encounter Details Date Type Department Care Team Description 2000 Hospital Encounter HX RST MARGI 2-0 Social History Tobacco Use Types Packs/Day Years [...] or relatives? How often do you attend oriental orthodox or 1 to 4 times per year 04/01 temple services? Do you belong to any clubs or Yes 04/19/2022 organizations such as oriental orthodox groups, unions, fraternal or athletic groups, or [...] or slept in a detention (including now)? Sex Assigned at Date Recorded Female 02/10/2022 1:42 PM CDT documented as of this encounter Plan of Treatment Not on filedocumented as of this encounter Visit Diagnoses Not on filedocumented in this encounter
--- OUTSIDE RECORDS SUMMARY | 2022-10-05 20:30 | XMS_ITS | Encounter Summary ---
:2000 Author Organization [facility] Address [address] [place] [address] Care Team Providers Name Role Phone Mian Goode M.D. Primary Care Provider Reason for Visit Reason Comments Med Refill Encounter Details Date Type Department Care Team Description 09/29/2018 Refill Department of Family Medicine, Mian Eden M.D. Med Refill [facility], [address] [facility] [address] [place] [address] [facility] in [facility] [address] [place] [address] Social History Tobacco Use [...] or relatives? How often do you attend anabaptism or 1 to 4 times per year 04/01 confucianism services? Do you belong to any clubs or Yes 04/19/2022 organizations such as anabaptism groups, unions, fraternal or athletic groups, or [...] slept in a nursing home (including now)? Sex Assigned at Date Recorded Female 02/10/2022 1:42 PM CDT documented as of this encounter Plan of Treatment Not on filedocumented as of this encounter Visit Diagnoses Not on filedocumented in this encounter Additional Health Concerns Assessment Noted Time PHQ-9 Depression Total Score: 9 01/31/2017 12:01 AM CS T documented as of this encounter Care Teams Feeder Operator Relationship Specialty Start Date End Date Mian Goode M.D. PCP - General Family Medicine 10/28/06 [address] [place] [address] documented as of this encounter
--- OUTSIDE RECORDS SUMMARY | 2022-10-05 20:30 | XMS_ITS | Encounter Summary ---
:2000 Author Organization [facility] Address [address] [place] [address] Care Team Providers Name Role Phone Mian Goode M.D. Primary Care Provider Encounter Details Date Type Department Care Team Description 01/31/2017 - Hospital Encounter HX RST Alicia Curry, 02/07/2017 MEDICINE [facility] [address] [place] [address] Social History Tobacco Use Types Packs/Day Years [...] 1 to 4 times per year 04/01 methodist services? Do you belong to any clubs [...] or slept in a residential (including now)? Sex Assigned at Date Recorded [...] documented as of this encounter Care Teams Grinder Outside Diameter Relationship Specialty Start Date End Date Mian Goode M.D. PCP - General Family Medicine 10/28/06 [address] [place] [address] documented as of this encounter
--- OUTSIDE RECORDS SUMMARY | 2022-10-05 20:30 | XMS_ITS | Encounter Summary ---
:2000 Author Organization [facility] Address [address] [place] [address] Care Team Providers Name Role Phone Mian Goode M.D. Primary Care Provider Reason for Referral Outpatient (Routine) - Closed Specialty Diagnoses / Procedures Referred By Contact Refer red To Contact Research Diagnoses Clinical Research Exam Harman Yan M.D., [facility] [address] [place] [phone] Referral ID Status Reason Start Date Expiration Date Visits Requ ested Visits Authorized [id number] Closed 05/19/2019 05/18/2020 1 1 Encounter Details Date Type Department Care Team Description 05/19/2019 Orders Only Division of [facility] Radha Owens Clinical Research Exam Pediatric and [address] [place] [address] (Primary Dx) Adolescent Medicine, [place] [address] [place], [place] [phone] [place] [address] (Work) [place] [address] Social History Tobacco Use Types [...] 1 to 4 times per year 04/01 taoism services? Do you belong to any clubs [...] place to sleep or slept in a alf (including now)? Education Answer Date Recorded What is the highest level of school you have completed or 12 th grade 05/14/2019 the highest degree you have received? Sex Assigned at Date Recorded Female 02/10/2022 1:42 PM CDT documented as of this encounter Plan of Treatment Scheduled Referrals Name Type Priority Associated Order Schedule Diagnoses Research Study Outpatient Referral Routine Clinical Research E xpected: Coordinator office Exam 9, visit (clinic) Expires: 05/19/2022 documented as of this encounter Visit Diagnoses Diagnosis Clinical Research Exam - Primary documented in this encounter Additional Health Concerns Assessment Noted Time PHQ-9 Depression Total Score: 9 01/31/2017 12:01 AM CS T documented as of this encounter Care Teams Marketing Budget Analyst Relationship Specialty Start Date End Date Mian Goode M.D. PCP - General Family Medicine 10/28/06 [address] [place] [address] documented as of this encounter
--- OUTSIDE RECORDS SUMMARY | 2022-10-05 20:30 | XMS_ITS | Encounter Summary ---
:[address] [facility] Address [address] [place] [address] Care Team Providers Name Role Phone Mian Goode M.D. Primary Care Provider Reason for Visit Reason Onset Date Comments Form Review 09/01/2018 Encounter Details Date Type Department Care Team Description 09/01/2018 Clinical Communication Department of Warner Zambrano, Form Review Medicine, [facility], [address] [phone] [place], [place] [address] (Work) [place], [place] [phone] [address] (Fax) [phone] Social History Tobacco Use Types Packs/Day Years [...] or slept in a alf (including now)? Sex Assigned at Date Recorded Female 02/10/2022 1:42 PM CDT documented as of this encounter Miscellaneous Notes Telephone Encounter - Amanda Lemon - 09/01/2018 3:15 PM CDT An Authorization for Self-Administration and Self Carry of Medication Form was dropped off for provider to complete. Provider reviewed and completed/signed the form. 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 Parent was notified of this as well. documented in this encounter Plan of Treatment Not on filedocumented as of this encounter Visit Diagnoses Not on filedocumented in this encounter Additional Health Concerns Assessment Noted Time PHQ-9 Depression Total Score: 9 01/31/2017 12:01 AM CS T documented as of this encounter Care Teams Director Diversity Relationship Specialty Start Date End Date Mian Goode M.D. PCP - General Family Medicine 10/28/[address] [place] [address] documented as of this encounter
--- OUTSIDE RECORDS SUMMARY | 2022-10-05 20:30 | XMS_ITS | Encounter Summary ---
:2000 Author Organization [facility] Address [address] [place] [address] Care Team Providers Name Role Phone Mian Goode M.D. Primary Care Provider Reason for Visit Reason Comments Annual Exam Appointment Request (Routine) - Closed Specialty Diagnoses / Procedures Referred By Contact Refer red To Contact Family Medicine Referral ID Status Reason Start Date Expiration Date Visits Requ ested Visits Authorized [id number] Closed 04/23/2019 04/22/2020 1 1 Encounter Details Date Type Department Care Team Description 05/17/2019 Comprehensive Visit Department of Mian Zambrano Examination Well Medicine, Jason Torres M.D. [facility] [place], [address] [place] [address] Multisystem 29 Day [address], [place] To 17 Year [facility] [address] (Primary Dx) in [facility] [phone] [place] (Work) [facility] [address] [phone] [place], [place] (Fax) [phone] Social History Tobacco Use [...] or relatives? How often do you attend moravian or 1 to 4 times per year 04/01 hoahaoism services? Do you belong to any clubs or Yes 04/19/2022 organizations such as moravian groups, unions, fraternal or athletic groups, or [...] Sign Reading Time Taken Comments Blood Pressure 106/60 05/17/2019 1:37 PM CDT Pulse 71 05/17/2019 1:37 PM CDT Temperature - - Respiratory Rate - - Oxygen Saturation - - Inhaled Oxygen Concentration - - Weight 54.9 kg (121 lb 0.5 oz) 05/17/2019 1:37 PM CDT Height 162 cm (5' 3.78) 05/17/2019 1:37 PM CDT Body Mass Index 20.92 05/17/2019 1:37 PM CDT Body Mass Index Percentile 43.25 % 05/17/2019 1:37 PM CD T Growth Chart: [facility] (Girls, 2-20 Years) documented in this encounter H&P Notes Mian Goode M.D. - 05/17/2019 1:45 PM CDT SUBJECTIVE Carrie Le is a 18 y.o. female who is here for a well child visit. History was providedby the patient. Current concerns: none She will be attending [employer] this fall and plans to double major in physics and memloom science, at least initially. She is working at [employer] over the summer. Diet: Reviewed and discussed.. Elimination: Reviewed and discussed.. Sleep Schedule: Reviewed and discussed.. School Performance: Reviewed and discussed.. She declines sexual activity or STD testing. The following screenings were completed: CRAFFT Score (max 6): 0 PHQ-2 Score: 0 The following portions of the patient's history were reviewed and updated as appropriate: allergies, current medications, family history, medical history, social history, surgical history, problem list, vital signs, growth curves and pre-visit questionnaires REVIEW OF SYSTEMS Respiratory: Positive for dyspnea and wheezing. The following systems were negative: Constitutional, Skin, Eyes, ENT, CV, GI, , Hematologic, Musculoskeletal, Neuro, Psych OBJECTIVE PHYSICAL EXAM Wt 54.9 kg Ht 162 cm BMI 20.92 kg/m?? HC: - BP 106/60 Blood pressure percentiles are not available for patients who are 18 years or older. General Appearance: Alert, interactive, well-appearing Head: Normocephalic, atraumatic Eyes: Conjunctivae clear, EOM intact, PERRL, fundi normal Ears: External ears and canals normal, TM's normal landmarks bilaterally Nose: Nares normal, mucosa normal, no drainage Mouth/Throat: Moist mucosa, no significant tonsils hypertrophy, erythema, or exudate Neck: Supple, full range of motion, no thyromegaly Chest: Good air movement bilaterally, clear to auscultation Breast: Declined Cardiovascular: Regular rate and rhythm; normal S1 and S2; no murmurs, normal perfusion Abdomen: Soft, non-tender, non-distended, no organomegaly or masses, normal bowel sounds Genitalia: exam deferred Musculoskeletal: 14-point general exam shows no significant asymmetry, apparent weakness, or decreased range of motion in the neck, shoulders, elbows, forearms, wrists, hands, knees, ankles or spine; hip rotation is symmetric and pain free Skin: Normal color, texture, and turgor; no lesions Lymph nodes: No significant adenopathy Neurologic: Normal tone, no focal deficits or weakness in general movements, symmetric DTR's Gait: Normal and appropriate for age Electronics Lead: none ASSESSMENT / PLAN Healthy 18 y.o. female child. Development: appropriate for age. 1. Age-appropriate anticipatory guidance discussed. Educational materials provided. Health promotionand safety topics discussed. Abuse/neglect, functional status, nutrition and pain assessed. Results of screening discussed and concerns addressed. Dental referral recommended. 2. Growth parameters are noted and are appropriate for age. BMI is not above 85th percentile for ageand sex. The patient/family was counseled regarding: nutrition and physical activity. 3. I provided counseling on all components of each vaccine recommended for immunization status and age, including any previous adverse reactions, and ordered today. VIS for proposed vaccines provided and discussion regarding risks/benefits of accepting/declining proposed vaccines was provided. Informat ion regarding vaccines given today is sent to the state registry. No orders of the defined types were placed in this encounter. 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 PCP - General Family Medicine 10/28/06 [address] [place] [address] documented as of this encounter
--- OUTSIDE RECORDS SUMMARY | 2022-10-05 20:30 | XMS_ITS | Encounter Summary ---
:2000 Author Organization [facility] Address [address] [place] [id number] Care Team Providers Name Role Phone Mian Goode M.D. Primary Care Provider Encounter Details Date Type Department Care Team Description 01/31/2017 - Hospital Encounter HX RST FAMILY Mian Goode, 02/07/2017 MEDICINE Brian.DSanti [address] [place] [phone] Social History Tobacco Use Types Packs/Day Years [...] or relatives? How often do you attend bahai or 1 to 4 times per year 04/01 jehovah's witness services? Do you belong to any clubs or Yes 04/19/2022 organizations such as bahai groups, unions, fraternal or athletic groups, or [...] slept in a group home (including now)? Sex Assigned at Date [...] documented as of this encounter Care Teams Mold Technician Relationship Specialty Start Date End Date Mian Goode M.D. PCP - General Family Medicine 10/28/[address] [place] [address] documented as of this encounter
--- OUTSIDE RECORDS SUMMARY | 2022-10-05 20:30 | XMS_ITS | Encounter Summary ---
:2000 Author Organization [facility] Address [address] [place] [address] Care Team Providers Name Role Phone Mian Goode M.D. Primary Care Provider Encounter Details Date Type Department Care Team Description 08/20/2018 Immunization Department of [facility] Hermelinda Acuña N eed Vaccine Medicine, Jameel Roberts [facility], in [place], [place] [address] [place] [address] Social History Tobacco Use Types Packs/Day Years [...] or slept in a custodial (including now)? Sex Assigned at Date Recorded Female 02/10/2022 1:42 PM CDT documented as of this encounter Plan of Treatment Not on filedocumented as of this encounter Visit Diagnoses Diagnosis Need Vaccine Immunization Influenza documented in this encounter Additional Health Concerns Assessment Noted Time PHQ-9 Depression Total Score: 9 01/31/2017 12:01 AM CS T documented as of this encounter Care Teams Diamond Grinder Relationship Specialty Start Date End Date Mian Goode M.D. PCP - General Family Medicine 10/28/06 [address] [place] [address] documented as of this encounter
--- OUTSIDE RECORDS SUMMARY | 2022-10-05 20:30 | XMS_ITS | Encounter Summary ---
:2000 Author Organization [facility] Address [address] [place] [address] Care Team Providers Name Role Phone Unavailable Primary Care Provider Unavailable Encounter Details Date Type Department Care Team Description 02/02/2006 Hospital Encounter HX NO MAPPING Social History [...] or slept in a long-term (including now)? Sex Assigned at Date Recorded Female 02/10/2022 1:42 PM CDT documented as of this encounter Plan of Treatment Not on filedocumented as of this encounter Visit Diagnoses Not on filedocumented in this encounter
[2022-10-05 20:37] LABS: HCO3 VBG 28 mmol/L (21-28); PCO2 VBG 52 mmHG (40-50); PO2 VBG 37.9 mmHG (25-47); pH VBG 7.335 (7.32-7.43)
[2022-10-05 20:38] LABS: Basophils Absolute Auto 0.05 K/uL (0.00-0.30); Basophils Percent Auto 0.6 % (0.0-3.0); Hemoglobin* 14.2 gm/dL (12.0-16.0); Immature Granulocytes Abs Auto 0.01 K/uL (0.00-0.30); Immature Granulocytes Pct Auto 0.1 %; Lymphocytes Absolute Auto 2.78 K/uL (0.90-2.90); Lymphocytes Percent Auto 32.1 % (20-44); Mean Corpuscular HGB Conc 34 gm/dL (32-36); Mean Corpuscular Hemoglobin 31 pg (26-34); Mean Corpuscular Volume 92 fL (80-100); Monocytes Percent Auto 7.4 % (0.0-11.0); Neutrophils Absolute Auto 5.18 K/uL (1.7-7.0); Neutrophils Percent Auto 59.8 % (42.0-72.0); Platelet Count* 294 K/uL (140-440); RDW Coefficient of Variation % 11.6 % (11.5-15.5); Red Blood Count 4.55 m/uL (4.00-5.20); White Blood Count* 8.66 K/uL (4.50-11.00)
[2022-10-05 20:45] LABS: Slide Review Reflex No
[2022-10-05 20:57] LABS: Chloride* 104 mmol/L (96-114)
[2022-10-05 20:58] LABS: Potassium* 3.8 mmol/L (3.6-5.1); Sodium* 141 mmol/L (135-149)
[2022-10-05 21:00] VITALS: BP 143/78; PULSE 75; RESP 18; O2SAT 97
[2022-10-05 21:00] LABS: Creatinine* 0.6 mg/dL (0.5-1.5); Est. Creatinine Clearance* 122.14; Estimated Glomerular Filt Rate 131 ml/min
[2022-10-05 21:01] LABS: Blood Urea Nitrogen* 16 mg/dL (5-24); Calcium* 9.4 mg/dL (8.4-10.6); Carbon Dioxide* 25 mmol/L (20-32); Glucose* 81 mg/dL (60-115)
[2022-10-05 21:17] LABS: PCR FLU A Negative PCR FLU A (Negative); PCR FLU B Negative PCR FLU B (Negative)
[2022-10-05 21:21] LABS: SARS PCR* Negative SARS-CoV-2 (Negative)
[2022-10-05 21:24] LABS: Appearance Urine Clear (Clear); Bilirubin Urine Negative (Negative); Blood Urine 2+ (Negative); Color Urine Yellow (Yellow); Glucose Urine Negative (Negative); Ketones Urine Negative (Negative); Leukocyte Esterase Urine Negative (Negative); Nitrite Urine Negative (Negative); Protein Urine Negative (Negative); Specific Gravity Urine 1.015 (1.000-1.030); Urobilinogen Urine 0.2 (0.2-1.0)
[2022-10-05 21:32] LABS: Amphetamine Screen Urine Negative (Negative); Barbiturate Screen Urine Negative (Negative); Benzodiazepines Screen Urine Negative (Negative); Cannabinoid Screen Urine Negative (Negative); Cocaine Screen Urine Negative (Negative); Methadone Screen Urine Negative (Negative); Methamphetamines Screen Urine Negative (Negative); Opiate Screen Urine Negative (Negative); Oxycodone Screen Urine Negative (Negative); Phencyclidine Screen Urine Negative (Negative); Tricyclic Antidepressant Urine Negative (Negative)
[2022-10-05 22:00] LABS: WBC Urine 0-2 (0-5)
== END 2022-10-05 21:50 | disposition home or self-care (01) ==
PROVIDERS: Emergency Provider Family Medicine
DX: N92.0 Excessive and frequent menstruation with regular cycle (principal); G47.10 Hypersomnia, unspecified
CPT/HCPCS: 36415; 76856; 80048; 80306; 81001; 82803; 85025; 87631; 93005; 99284

== ENCOUNTER 2023-10-20 18:46 | Outpatient (CLI) | payer OTHER, SELFPAY ==
[2023-10-21 00:19] LABS: Chlamydia DNA Amplified* NOT DETECTED (No Detected); GC DNA Amplified* NOT DETECTED (No Detected)
== END 2023-10-20 18:47 | disposition home or self-care (01) ==
LOC: NFLDUCREF 18:47
PROVIDERS: PCP Physician Assistant; Visit Provider Physician Assistant
DX: Z11.3 Encounter for screening for infections with a predominantly sexual mode of transmission (principal); Z20.2 Contact with and (suspected) exposure to infections with a predominantly sexual mode of transmission
CPT/HCPCS: 87491; 87591